=== PATIENT | male | born 1955 | race Hispanic/Latino ===

== ENCOUNTER 2016-06-07 08:34 | Inpatient (IN) | payer MEDICAID ==
[2016-06-07 08:34] VITALS: PULSE 99
[2016-06-07 09:11] LABS: ADD MANUAL DIFF? NO
--- NOTE | 2016-06-07 09:12 | ED PDOC ---
Arrival/HPI - General Chief Complaint: Chest Pain Time Seen by Provider: 06/07/16 08:41 Historian: Patient - History of Present Illness Narrative History of Present Illness (Text): 06/07/16 08:54 61 year old male with a past medical history that includes atrial fibrillation, CHF, COPD, TIA, hypertension, and [place] presents to the emergency department with shortness of breath and chest pain for the past two days. Patient states he ran out of his Lasix. Patient also reports dry cough. Denies fever. PMD: Dr. Centeno Time/Duration: < week Symptom Onset: Sudden Symptom Course: Unchanged Modifying Factors (Text): None Associated Symptoms (Text): None Past Medical History - Provider Review Nursing Documentation Reviewed: Yes - Infectious Disease Hx of Infectious Diseases: None - Tetanus Immunization Tetanus Immunization: Unknown - Cardiac Hx Cardiac Disorders: Yes Hx Cardiac Arrhythmia: Yes (A-fib) Hx Circulatory Problems: Yes Hx Congestive Heart Failure: Yes Hx Hypertension: Yes Other/Comment: Cardiac arrest - Pulmonary Hx Respiratory Disorders: Yes Hx Chronic Obstructive Pulmonary Disease (COPD): Yes - Neurological Hx Neurological Disorder: Yes Hx Transient Ischemic Attacks (TIA): Yes - HEENT Hx HEENT Disorder: No - Renal Hx Renal Disorder: No - Endocrine/Metabolic Hx Endocrine Disorders: No - Hematological/Oncological Hx Blood Disorders: Yes Hx Hepatitis C: Yes - Integumentary Hx Dermatological Disorder: No - Musculoskeletal/Rheumatological Hx Musculoskeletal Disorders: No Hx Falls: No - Gastrointestinal Hx Gastrointestinal Disorders: Yes Other/Comment: GI bleed, short bowel syndrome - Genitourinary/Gynecological Hx Genitourinary Disorders: No - Psychiatric Hx Psychophysiologic Disorder: Yes Hx Anxiety: Yes Hx Depression: Yes Hx Substance Use: No - Surgical History Other/Comment: Hernia repair, fistula colon resection, tonsillectomy, colostomy with reversal, right kidney removed, - Anesthesia Hx Anesthesia: Yes Hx Anesthesia Reactions: No Hx Malignant Hyperthermia: No Family/Social History - Physician Review Nursing Documentation Reviewed: Yes Family/Social History: Unknown Family HX Smoking Status: Current Some Days Smoker Hx Alcohol Use: No Hx Substance Use: No Allergies/Home Meds Allergies/Adverse Reactions: Allergies fluphenazine enanthate [From Prolixin] Allergy (Verified 06/07/16 12:54) RASH fluphenazine HCl [From Prolixin] Allergy (Verified 06/07/16 12:54) RASH morphine Allergy (Verified 06/07/16 12:54) RASH Penicillins Allergy (Verified 06/07/16 12:54) RASH venom-honey bee [bee venom (honey bee)] Allergy (Verified 06/07/16 12:54) ANAPHYLAXIS Home Medications: Home Meds Medication Instructions Recorded Confirmed Lamotrigine [Lamictal] 200 mg PO DAILY 08/15/15 06/07/16 Spironolactone [Aldactone] 25 mg PO DAILY 08/15/15 06/07/16 Amiodarone [Cordarone] 200 mg PO BID 04/16/16 06/07/16 Dabigatran [Pradaxa] 150 mg PO BID 04/16/16 06/07/16 Metoprolol Succinate XL [Toprol XL] 50 mg PO DAILY 04/16/16 06/07/16 Potassium Chloride [K-Tab ER] 20 meq PO DAILY 04/16/16 06/07/16 Verapamil HCl [Verapamil ER] 1 tab PO DAILY 04/16/16 06/07/16 Furosemide [Lasix] 40 mg PO BID 05/04/16 06/07/16 Oxycodone HCl/Acetaminophen 1 tab PO Q6 PRN 05/04/16 06/07/16 [Oxycodone-Acetaminophen 5-325] Review of Systems - Physician Review All systems were reviewed & negative as marked: Yes - Review of Systems Constitutional: absent: Fevers Respiratory: SOB, Cough (dry) Cardiovascular: Chest Pain. absent: Palpitations Gastrointestinal: absent: Abdominal Pain, Nausea, Vomiting Musculoskeletal: absent: Neck Pain Neurological: absent: Dizziness Physical Exam Vital Signs Reviewed: Yes Vital Signs Temp Pulse Pulse Resp BP Pulse Ox 06/07/16 10:47 74 21 118/87 98 06/07/16 10:05 135/77 06/07/16 08:50 74 06/07/16 08:40 97.9 F 81 22 123/76 98 06/07/16 08:38 97.7 F 72 21 123/76 100 Temperature: Afebrile Blood Pressure: Normal Pulse: Regular Respiratory Rate: Normal Appearance: Positive for: Well-Appearing, Non-Toxic, Comfortable Pain Distress: None Mental Status: Positive for: Alert and Oriented X 3 - Systems Exam Head: Present: Atraumatic, Normocephalic Pupils: Present: PERRL Extroacular Muscles: Present: EOMI Conjunctiva: Present: Normal Mouth: Present: Moist Mucous Membranes Neck: Present: Normal Range of Motion Respiratory/Chest: Present: Good Air Exchange, Rales (at the bases bilaterally) , Other (Diminished breath sounds bilaterally). No: Respiratory Distress, Accessory Muscle Use Cardiovascular: Present: Regular Rate and Rhythm, Normal S1, S2. No: Murmurs Abdomen: Present: Normal Bowel Sounds. No: Tenderness, Distention, Peritoneal Signs Back: Present: Normal Inspection Upper Extremity: Present: Normal Inspection. No: Cyanosis, Edema Lower Extremity: Present: Normal Inspection. No: Edema Neurological: Present: GCS=15, CN II-XII Intact, Speech Normal Skin: Present: Warm, Dry, Normal Color. No: Rashes Psychiatric: Present: Alert, Oriented x 3, Normal Insight, Normal Concentration Medical Decision Making ED Course and Treatment: Impression: 61 year old male, pmhx that includes atrial fibrillation, CHF, COPD , TIA, hypertension, and [place], presents with shortness of breath and chest pain for 2 days. Differential Diagnosis include but are not limited to: CHF exacerbation vs pneumonia Plan: -- EKG, Chest x-ray -- Labs -- Reassess and disposition Prior Visits: Notes and results from previous visits were reviewed. Patient was last seen in the emergency department on 05/04/16 for chest pain and admitted for CHF, pneumonia. EKG: Ordered, reviewed, and independently interpreted the EKG. Rate : 81 BPM Rhythm : Atrial fibrillation Interpretation : No interval changes Progress Notes: 06/07/16 10:16 cxr worsening right sided congestion vs opacity pt afebrile, no leukoctyosis. suspected chf. dr chase accepts - Lab Interpretations Lab Results: 06/07/16 08:56 06/07/16 08:56 Lab Results 06/07/16 08:56: WBC 8.1 D, RBC 4.83, Hgb 13.2 L, Hct 41.5 L, MCV 85.9, MCH 27.3 , MCHC 31.8, RDW 18.7 H, Plt Count 219, MPV 10.5, Gran % 82.9 H, Lymph % (Auto) 10.4 L, [place] % (Auto) 6.5 H, Eos % (Auto) 0.1 L, Baso % (Auto) 0.1, Gran # 6.71 H, Lymph # 0.8 L, [place] # 0.5, Eos # 0.0, Baso # 0.01, PT 15.3 H, INR 1.42 H, APTT 38.2 H, Sodium 139, Potassium 4.2, Chloride 106, Carbon Dioxide 22, Anion Gap 15, BUN 33 H, Creatinine 1.8 H, Est GFR ( Amer) 46, Est GFR (Non-Af Amer) 38, Random Glucose 135 H, Calcium 9.6, Magnesium 2.0, Total Bilirubin 0.6 , AST 37, ALT 36, Alkaline Phosphatase 103, Lactate Dehydrogenase 543, Total Creatine Kinase 115, Troponin I 0.02 D, Total Protein 6.4, Albumin 3.5, Globulin 2.9, Albumin/Globulin Ratio 1.2 06/07/16 08:30: NT-Pro-B Natriuret Pep 9380 H - RAD Interpretation Radiology Orders: 06/07/16 08:52 CHEST PORTABLE [RAD] Stat - EKG Interpretation Interpreted by ED Physician: Yes Type: 12 lead EKG - Medication Orders Current Medication Orders: Acetaminophen (Tylenol 325mg Tab) 650 mg PO Q6 PRN PRN Reason: Pain, Mild (1-3) Albuterol/Ipratropium (Duoneb 3 Mg/0.5 Mg (3 Ml) Ud) 3 ml IH [id number] [facility] Last Admin: 06/07/16 15:58 Dose: 3 ML Amiodarone HCl (Cordarone) 200 mg PO BID [facility] Atorvastatin Calcium (Lipitor) 40 mg PO DAILY [facility] Dabigatran (Pradaxa) 150 mg PO BID [facility] PRN Reason: Protocol Diltiazem HCl (Cardizem Cd) 120 mg PO DAILY [facility] Last Admin: 06/07/16 12:29 Dose: 120 MG MAR Pulse and Blood Pressure Document 06/07/16 12:29 GLI (Rec: 06/07/16 12:31 GLI [facility] [id number]) Pulse Pulse Rate (60-90) 89 Blood Pressure Blood Pressure (100/60-150/90) 116/63 Doxycycline Hyclate (Doryx) 100 mg PO Q12 [facility] PRN Reason: Protocol Furosemide (Lasix) 40 mg IVP Q12 [facility] Home Med (Home Med) 1 unit PO DAILY [facility] Lamotrigine (Lamictal) 200 mg PO DAILY [facility] Last Admin: 06/07/16 12:29 Dose: 200 MG Behavioural Document 06/07/16 12:29 GLI (Rec: 06/07/16 12:29 GLI [facility] [id number]) Maintenance Maintenance Dose Yes Nonmedicinal Nonmedicinal Interventions Redirect Behavior Behavior for Medication: Anxiety Re-Assess: Reassess Psych Meds Document 06/07/16 13:29 GLI (Rec: 06/07/16 16:56 GLI [id number]) Reassess Psych Med Effective Lisinopril (Zestril) 5 mg PO DAILY [facility] Metoprolol Succinate (Toprol Xl) 50 mg PO DAILY [facility] Ondansetron HCl (Zofran Inj) 4 mg IVP Q6 PRN PRN Reason: Nausea/Vomiting Pantoprazole Sodium (Protonix Ec Tab) 40 mg PO DAILY [facility] Potassium Chloride (K-Dur 20 Meq Er Tab) 20 meq PO DAILY [facility] Last Admin: 06/07/16 12:28 Dose: 20 MEQ Spironolactone (Aldactone) 25 mg PO DAILY [facility] Last Admin: 06/07/16 12:32 Dose: 25 MG Tramadol HCl (Ultram) 50 mg PO TID PRN PRN Reason: Pain, moderate (4-7) Last Admin: 06/07/16 12:31 Dose: 50 MG MAR Pain Assessment Document 06/07/16 12:31 GLI (Rec: 06/07/16 12:32 GLI [facility] [id number]) Pain Reassessment Is this a pain reassessment? No Presence of Pain Presence of Pain Yes Pain Scale Used Pain Scale Used Numeric Location Left, Right or Bilateral Bilateral Pain Location Body Site Neck Back Description Description Intermittent Intensity of Pain at present 7 Acceptable Level of Pain 0 Pain Behavior Irritability Facial Grimacing Aggravating Factors Changing Position Alleviating Factors/Management Medication Techniques Alleviating Factors Medication Effects of Pain restless Re-Assess: MAR Pain Assessment Document 06/07/16 13:31 GLI (Rec: 06/07/16 16:58 [facility] [id number]) Pain Reassessment Is this a pain reassessment? Yes Sleep Is patient sleeping during reassessment? Yes Discontinued Medications Furosemide (Lasix) 40 mg IVP STAT STA Stop: 06/07/16 09:51 Last Admin: 06/07/16 10:05 Dose: 40 MG MAR Blood Pressure Document 06/07/16 10:05 OCS (Rec: 06/07/16 10:05 OCS [id number]) Blood Pressure Blood Pressure (100/60-150/90) 135/77 IVP Administration Document 06/07/16 10:05 OCS (Rec: 06/07/16 10:05 [id number] Charges for Administration # of IVP Administrations 1 Non-Formulary Medication (Verapamil Hcl [Verapamil Er]) 1 tab PO DAILY [facility]LEC[facility] - Scribe Statement The provider has reviewed the documentation as recorded by the Duran Armstrong Provider Scribe Attestation: All medical record entries made by the Scribe were at my direction and personally dictated by me. I have reviewed the chart and agree that the record accurately reflects my personal performance of the history, physical exam, medical decision making, and the department course for this patient. I have also personally directed, reviewed, and agree with the discharge instructions and disposition. Disposition/Present on Arrival - Present on Arrival Any Indicators Present on Arrival: No History of DVT/PE: No History of Uncontrolled Diabetes: No Urinary Catheter: No History of Decub. Ulcer: No History Surgical Site Infection Following: None - Disposition Have Diagnosis and Disposition been Completed?: Yes Diagnosis: CHF (congestive heart failure) Disposition: HOSPITALIZED Disposition Time: 10:08 Patient Problems: Current Active Problems Problem Status Diagnosed CHF (congestive heart failure) Chronic Condition: FAIR
[2016-06-07 09:19] LABS: BASO # 0.01 K/mm3 (0.0-2.0); BASO % 0.1 % (0.0-3.0); EOS % 0.1 % (1.5-5.0); GRAN # 6.71 (1.4-6.5); GRAN % 82.9 % (50.0-68.0); HEMATOCRIT 41.5 % (42.0-52.0); LYMPH # 0.8 (1.2-3.4); LYMPH % 10.4 % (22.0-35.0); MEAN CELL VOLUME 85.9 fL (80.0-105.0); MEAN CORPUSCULAR HEMOGLOBIN 27.3 pg (25.0-35.0); MEAN CORPUSCULAR HGB CONC 31.8 g/dl (31.0-37.0); MEAN PLATELET VOLUME 10.5 fl (7.0-11.0); MONO # 0.5 (0.1-0.6); MONO % 6.5 % (1.0-6.0); PLATELET COUNT 219 10^3/uL (120.0-450.0); RED CELL DISTRIBUTION WIDTH 18.7 % (11.5-14.5); WHITE BLOOD COUNT 8.1 10^3/ul (4.5-11.0)
[2016-06-07 09:21] LABS: INR 1.42 (0.93-1.08); PARTIAL THROMBOPLASTIN TIME 38.2 Seconds (23.7-30.8)
[2016-06-07 09:22] LABS: ALB/GLOB RATIO 1.2 (1.1-1.8); BILIRUBIN,TOTAL 0.6 mg/dL (0.2-1.3); CALCIUM 9.6 mg/dL (8.4-10.5); POTASSIUM 4.2 mmol/L (3.6-5.0); TOTAL PROTEIN 6.4 g/dL (5.8-8.3)
[2016-06-07 09:33] LABS: TROPONIN I 0.02 ng/mL
[2016-06-07 10:50] LABS: URINE BILIRUBIN NEGATIVE (NEGATIVE); URINE BLOOD NEGATIVE (NEGATIVE); URINE GLUCOSE (UA) NEGATIVE (NEGATIVE); URINE KETONE NEGATIVE (NEGATIVE); URINE LEUKOCYTE ESTERASE NEGATIVE Leu/uL (NEGATIVE); URINE PROTEIN NEGATIVE mg/dL (<30 mg/dL); URINE UROBILINOGEN 0.2 E.U./dL (<1 E.U./dL)
[2016-06-07 10:51] LABS: URINE APPEARANCE CLEAR (CLEAR); URINE COLOR YELLOW (YELLOW)
[2016-06-07] MEDS ORDERED: VERAPAMIL HCL PO SCH (11:30)
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
[2016-06-07] MEDS: Potassium Chloride 20 mEq ER Tab PO SCH (12:28)
[2016-06-07] MEDS: diltiaZEM 120 mg/24 Hours CD Cap PO SCH (12:29)
--- NOTE | 2016-06-07 13:28 | CON ---
DATE: 06/07/2016 REASON FOR CONSULTATION: Exacerbation of congestive heart failure. HISTORY OF PRESENT ILLNESS: The patient is a 61-year-old male who has history of advanced chronic ob structive lung disease, nonischemic cardiomyopathy, congestive heart failure and chronic atrial fibri llation, ran out of his Lasix and presents because of shortness of breath and cough. The patient den ies any fever or chills. SOCIAL HISTORY: The patient is a smoker. MEDICATIONS: Aldactone 25 mg once a day, Cardizem-CD 120 mg once a day, amiodarone 200 mg twice a da y, K-Dur 20 mEq once a day, Lasix 40 mg intravenous twice a day, Lipitor 40 mg once a day, Pradaxa 15 0 mg twice a day, Protonix 40 mg p.o. once a day, Toprol-XL 50 mg once a day, Ultram 50 mg t.i.d. p.r .n., Zestril at 5 mg once a day, Zofran 4 mg intravenous q. 6 hours p.r.n. PHYSICAL EXAMINATION: GENERAL: The patient is a middle-aged male who does not appear to be in any acute distress. VITAL SIGNS: Blood pressure 116/63, heart rate 89, temperature 97.9, respirations 21. HEENT: Normocephalic. NECK: No JVD. CHEST: Scattered coarse crepitations and rhonchi bilaterally. HEART: S1, S2 regular. ABDOMEN: Soft. EXTREMITIES: No edema. LABORATORY DATA: Hemoglobin and hematocrit 13.1 and 41.5, platelet count and white count are within normal limits. SMA-7 is within normal limits except for BUN and creatinine of 33 and 1.8, respective ly and glucose of 135. ProBNP is 9380. One set of troponin is 0.02. INR is 1.4, PTT 38.2. No EKG is found on the computer database and I will review the EKG from the Emergency Room if found on the c haider. Chest x-ray revealed cardiomegaly and right lower lobe infiltrate, possible right lower lobe e ffusion. ASSESSMENT: 1. Exacerbation of congestive heart failure. 2. Right lower lobe pneumonia. 3. Chronic obstructive lung disease. 4. Chronic atrial fibrillation. RECOMMENDATIONS: Continue IV Lasix 40 mg intravenous twice a day, Zestril at 5 mg once a day, Pradax a at 150 mg twice a day, K-Dur 20 mEq once a day, Cardizem-CD at 120 mg daily. I recommend initiatin g IV Rocephin and IV Zithromax for underlying pneumonia. Lexx Haji MD cc: [id number] TT: 06/07/2016 13:27:53 Confirmation # [id number] Dictation # [id number]
--- NOTE | 2016-06-07 13:47 | RAD ---
HISTORY: sob COMPARISON: No prior. FINDINGS: LUNGS: Bilateral lower lobe infiltrates. PLEURA: No significant pleural effusion identified, no pneumothorax apparent. CARDIOVASCULAR: Normal. OSSEOUS STRUCTURES: No significant abnormalities. VISUALIZED UPPER ABDOMEN: Normal. OTHER FINDINGS: None. IMPRESSION: Bilateral lower lobe infiltrates.
[2016-06-07 15:26] LABS: TROPONIN I 0.01 ng/mL
[2016-06-07] MEDS: Albuterol-Ipratrop 3 mg / 0.5 (3 ml) UD IH SCH ×2 (15:58→20:20)
[2016-06-07 16:39] VITALS: BMI 21.9
[2016-06-07] MEDS: VERAPAMIL 180 MG PO SCH (18:08)
--- NOTE | 2016-06-07 18:41 | CARD ---
APPROVED REPORT EKG Measurement Heart [id number] <Conclusion> Atrial fibrillation with a competing junctional pacemaker Nonspecific T wave abnormality, probably digitalis effect Prolonged QT Abnormal ECG
[2016-06-08] MEDS: Albuterol-Ipratrop 3 mg / 0.5 (3 ml) UD IH SCH ×7 (04:30→23:03)
[2016-06-08 09:03] LABS: HEMATOCRIT 42.3 % (42.0-52.0); MEAN CORPUSCULAR HEMOGLOBIN 27.4 pg (25.0-35.0); MEAN CORPUSCULAR HGB CONC 31.4 g/dl (31.0-37.0); MEAN PLATELET VOLUME 10.2 fl (7.0-11.0); WHITE BLOOD COUNT 7.7 10^3/ul (4.5-11.0)
[2016-06-08 09:14] LABS: ALB/GLOB RATIO 1.2 (1.1-1.8); BILIRUBIN,TOTAL 0.8 mg/dL (0.2-1.3); CALCIUM 9.6 mg/dL (8.4-10.5); MAGNESIUM 1.9 mg/dL (1.7-2.2); PHOSPHOROUS 3.3 mg/dL (2.5-4.5); POTASSIUM 4.4 mmol/L (3.6-5.0); TOTAL PROTEIN 6.9 g/dL (5.8-8.3)
--- NOTE | 2016-06-08 09:26 | RAD ---
HISTORY: SOB COMPARISON: 06/07/2016 TECHNIQUE: Chest PA and lateral FINDINGS: LUNGS: Bibasilar interstitial infiltrates, PLEURA: No significant pleural effusion identified. No pneumothorax apparent. CARDIOVASCULAR: Normal. OSSEOUS STRUCTURES: No significant abnormalities. VISUALIZED UPPER ABDOMEN: Normal. OTHER FINDINGS: None. IMPRESSION: No significant interval change.
[2016-06-08] MEDS: diltiaZEM 120 mg/24 Hours CD Cap PO SCH (11:08)
[2016-06-08] MEDS: Potassium Chloride 20 mEq ER Tab PO SCH (11:12)
[2016-06-08] MEDS: VERAPAMIL 180 MG PO SCH (11:12)
[2016-06-08] MEDS: Metoprolol Succinate 50 mg XL Tab PO SCH (11:14)
[2016-06-08] MEDS: Pantoprazole 40 mg EC Tab PO SCH (11:14)
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
--- NOTE | 2016-06-08 13:52 | PN ---
DATE: 06/08/2016 The patient's shortness of breath and cough has improved. PHYSICAL EXAMINATION: VITAL SIGNS: Blood pressure 120/86, heart rate 56, temperature 97.8, respirations 19. HEENT: Normocephalic. NECK: No JVD. CHEST: Bilateral rhonchi. HEART: S1, S2 irregular. EXTREMITIES: 1+ edema. LABORATORIES: Today's BUN and creatinine are 34 and 2.0, glucose is 110. Hemoglobin and hematocrit 13.3 and 42.3. White count and platelet count are within normal limit. ASSESSMENT: 1. Exacerbation of congestive heart failure. 2. Chronic obstructive lung disease. 3. Pneumonia. 4. Chronic atrial fibrillation. RECOMMENDATIONS: Continue current Cardizem-CD, Aldactone, amiodarone, K-Dur, intravenous Lasix, Prad axa, Toprol-XL and Zestril as well as oral doxycycline. Lexx Haji MD cc: [id number] TT: 06/08/2016 13:51:37 Confirmation # [id number] Dictation # [id number] en
[2016-06-08] MEDS ORDERED: Albuterol-Ipratrop 3 mg / 0.5 (3 ml) UD IH PRN (22:30)
[2016-06-09 02:28] VITALS: RESP 20
[2016-06-09] MEDS: Albuterol-Ipratrop 3 mg / 0.5 (3 ml) UD IH SCH ×3 (03:01→10:59)
[2016-06-09 06:49] VITALS: PULSE 64; TEMP 97.4; O2SAT 96
[2016-06-09 09:22] LABS: ADD MANUAL DIFF? NO
[2016-06-09 09:26] LABS: BASO # 0.01 K/mm3 (0.0-2.0); BASO % 0.1 % (0.0-3.0); EOS # 0.1 (0.0-0.7); EOS % 0.6 % (1.5-5.0); GRAN # 6.45 (1.4-6.5); GRAN % 75.4 % (50.0-68.0); HEMATOCRIT 42.4 % (42.0-52.0); LYMPH # 1.4 (1.2-3.4); LYMPH % 16.3 % (22.0-35.0); MEAN CELL VOLUME 87.4 fL (80.0-105.0); MEAN CORPUSCULAR HEMOGLOBIN 27.8 pg (25.0-35.0); MEAN CORPUSCULAR HGB CONC 31.8 g/dl (31.0-37.0); MEAN PLATELET VOLUME 10.4 fl (7.0-11.0); MONO # 0.7 (0.1-0.6); MONO % 7.6 % (1.0-6.0); PLATELET COUNT 207 10^3/uL (120.0-450.0); WHITE BLOOD COUNT 8.6 10^3/ul (4.5-11.0)
[2016-06-09 09:32] LABS: ALB/GLOB RATIO 1.3 (1.1-1.8); BILIRUBIN,TOTAL 0.5 mg/dL (0.2-1.3); CALCIUM 9.4 mg/dL (8.4-10.5); POTASSIUM 4.9 mmol/L (3.6-5.0); TOTAL PROTEIN 6.3 g/dL (5.8-8.3)
[2016-06-09] MEDS: VERAPAMIL 180 MG PO SCH (11:07)
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
[2016-06-09] MEDS: Potassium Chloride 20 mEq ER Tab PO SCH (11:12)
[2016-06-09] MEDS: Pantoprazole 40 mg EC Tab PO SCH (11:14)
[2016-06-09] MEDS: Metoprolol Succinate 50 mg XL Tab PO SCH (11:14)
[2016-06-09] MEDS: diltiaZEM 120 mg/24 Hours CD Cap PO SCH (11:14)
[2016-06-09 11:22] VITALS: BP 114/82
--- NOTE | 2016-06-09 12:07 | PN ---
DATE: 06/09/2016 The patient's shortness of breath and productive cough have improved. He denies any dizziness. PHYSICAL EXAMINATION: VITAL SIGNS: Blood pressure 114/82, heart rate 64, temperature 97.4, respirations 20. HEENT: Normocephalic. NECK: No JVD. CHEST: Bilateral rhonchi. HEART: S1, S2 regular. EXTREMITIES: No edema. LABORATORIES: Hemoglobin and hematocrit 13.5 and 42.4. Platelet count and white count are within no rmal limits. Today's BUN and creatinine are 37 and 2.3. ASSESSMENT: 1. Exacerbation of congestive heart failure. 2. Chronic obstructive lung disease. 3. Chronic atrial fibrillation. 4. Chronic renal insufficiency. RECOMMENDATIONS: Continue current Cardizem-CD, amiodarone, IV Lasix, Pradaxa, Lipitor and lisinopril . Discontinue Aldactone as well as K-Dur. Lexx Haji MD cc: [id number] TT: 06/09/2016 12:06:57 Confirmation # [id number] Dictation # [id number] en
== END 2016-06-09 13:17 | disposition home or self-care (01) | DRG 544 ==
LOC: ED 08:34 → ERH 10:22 → 2RNO 11:34 → 5RSO 06-08 14:03 → 2RNO 06-08 14:04
PROVIDERS: ADMIT Hospitalist; ATTEND Internal Medicine
PROC: 3E0F7GC Introduction of Other Therapeutic Substance into Respiratory Tract, Via Natural or Artificial Opening (ICD-10-PCS; principal; 2016-06-07)
DX: I13.0 Hypertensive heart and chronic kidney disease with heart failure and stage 1 through stage 4 chronic kidney disease, or unspecified chronic kidney disease (principal); J18.9 Pneumonia, unspecified organism; I42.0 Dilated cardiomyopathy; I50.9 Heart failure, unspecified; J44.0 Chronic obstructive pulmonary disease with (acute) lower respiratory infection; N18.9 Chronic kidney disease, unspecified; I48.2 Chronic atrial fibrillation; F17.210 Nicotine dependence, cigarettes, uncomplicated; M54.9 Dorsalgia, unspecified; G89.29 Other chronic pain; R35.8 Other polyuria; T50.1X5A Adverse effect of loop [high-ceiling] diuretics, initial encounter; F32.9 Major depressive disorder, single episode, unspecified; Z91.14 Patient's other noncompliance with medication regimen; I25.2 Old myocardial infarction; Z86.73 Personal history of transient ischemic attack (TIA), and cerebral infarction without residual deficits; Z82.49 Family history of ischemic heart disease and other diseases of the circulatory system; Z80.3 Family history of malignant neoplasm of breast

== ENCOUNTER 2016-06-10 00:39 | Inpatient (IN) | payer MEDICAID ==
[2016-06-10 00:39] VITALS: PULSE 99
--- NOTE | 2016-06-10 01:01 | ED PDOC ---
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 Patient was admitted to the hospital for chest pain and shortness of breath, and was discharged home yesterday afternoon. Denies any nausea, vomiting, or diarrhea. Denies fever, chills, headache, dizziness, shortness of breath, urinary symptoms , or any other complaints at this time. Time/Duration: 1 hour Symptom Onset: Gradual Symptom Course: Unchanged Severity Level: Mild Activities at Onset: Light Context: Home Past Medical History - Provider Review Nursing Documentation Reviewed: Yes - Infectious Disease Hx of Infectious Diseases: None - Tetanus Immunization Tetanus Immunization: Unknown - Cardiac Hx Cardiac Disorders: Yes Hx Cardiac Arrhythmia: Yes (A-fib) Hx Circulatory Problems: Yes Hx Congestive Heart Failure: Yes Hx Hypertension: Yes Other/Comment: Cardiac arrest - Pulmonary Hx Respiratory Disorders: Yes Hx Chronic Obstructive Pulmonary Disease (COPD): Yes - Neurological Hx Neurological Disorder: Yes Hx Transient Ischemic Attacks (TIA): Yes - HEENT Hx HEENT Disorder: No - Renal Hx Renal Disorder: No - Endocrine/Metabolic Hx Endocrine Disorders: No - Hematological/Oncological Hx Blood Disorders: Yes Hx Hepatitis C: Yes - Integumentary Hx Dermatological Disorder: No - Musculoskeletal/Rheumatological Hx Musculoskeletal Disorders: No Hx Falls: No - Gastrointestinal Hx Gastrointestinal Disorders: Yes Other/Comment: GI bleed, short bowel syndrome - Genitourinary/Gynecological Hx Genitourinary Disorders: No - Psychiatric Hx Psychophysiologic Disorder: Yes Hx Anxiety: Yes Hx Depression: Yes Hx Substance Use: No - Surgical History Other/Comment: Hernia repair, fistula colon resection, tonsillectomy, colostomy with reversal, right kidney removed, - Anesthesia Hx Anesthesia: Yes Hx Anesthesia Reactions: No Hx Malignant Hyperthermia: No Family/Social History - Physician Review Nursing Documentation Reviewed: Yes Family/Social History: No Known Family HX Smoking Status: Current Some Days Smoker Hx Alcohol Use: No Hx Substance Use: No Allergies/Home Meds Allergies/Adverse Reactions: Allergies fluphenazine enanthate [From Prolixin] Allergy (Verified 06/07/16 12:54) RASH fluphenazine HCl [From Prolixin] Allergy (Verified 06/07/16 12:54) RASH morphine Allergy (Verified 06/07/16 12:54) RASH Penicillins Allergy (Verified 06/07/16 12:54) RASH venom-honey bee [bee venom (honey bee)] Allergy (Verified 06/07/16 12:54) ANAPHYLAXIS Home Medications: Home Meds Medication Instructions Recorded Confirmed Oxycodone HCl/Acetaminophen 1 tab PO Q6 PRN 05/04/16 06/10/16 [Oxycodone-Acetaminophen 5-325] Review of Systems - Physician Review All systems were reviewed & negative as marked: Yes - Review of Systems Constitutional: Normal. absent: Fatigue, Fevers Respiratory: absent: SOB, Cough Cardiovascular: Chest Pain. absent: Palpitations Gastrointestinal: Abdominal Pain (lower ). absent: Diarrhea, Nausea, Vomiting Musculoskeletal: Other (shoulder pain ) Skin: Normal Neurological: Normal. absent: Headache, Dizziness Psychiatric: Normal Physical Exam Vital Signs Reviewed: Yes Vital Signs Temp Pulse Resp BP Pulse Ox 06/10/16 10:20 63 18 116/45 L 96 06/10/16 08:06 97.6 F 63 18 122/83 95 06/10/16 05:40 60 16 111/71 95 06/10/16 04:45 57 L 18 116/65 96 06/10/16 03:00 61 16 117/62 94 L 06/10/16 01:19 97.9 F 67 16 109/66 96 Temperature: Afebrile Blood Pressure: Normal Pulse: Regular Respiratory Rate: Normal Appearance: Positive for: Well-Appearing, Non-Toxic, Comfortable Pain Distress: None Mental Status: Positive for: Alert and Oriented X 3 - Systems Exam Head: Present: Atraumatic, Normocephalic Pupils: Present: PERRL Extroacular Muscles: Present: EOMI Conjunctiva: Present: Normal Respiratory/Chest: Present: Clear to Auscultation, Good Air Exchange. No: Respiratory Distress, Accessory Muscle Use Cardiovascular: Present: Regular Rate and Rhythm, Normal S1, S2. No: Murmurs Abdomen: Present: Normal Bowel Sounds. No: Tenderness, Distention, Peritoneal Signs Upper Extremity: Present: Normal Inspection. No: Cyanosis, Edema Lower Extremity: Present: Normal Inspection. No: Edema Neurological: Present: GCS=15, CN II-XII Intact, Speech Normal Skin: Present: Warm, Dry, Normal Color. No: Rashes Psychiatric: Present: Alert, Oriented x 3, Normal Insight, Normal Concentration Medical Decision Making ED Course and Treatment: 06/10/16 01:02 Impression: A 61 year old male who presents to the emergency department complaining of chest pain, and lower abdominal pain for past hour. Plan: -- CT abdomen pelvis -- EKG -- Labs, cardiac enzymes -- Ultram -- Blood Culture -- Urinalysis -- Reassess and disposition Progress Notes: 06/10/16 01:05 EKG reviewed by me: Atrial flutter @ 59 bpm with variable AV block. nonspecific T wave abnormality. 06/10/16 05:02 CT abdomen pelvis results reviewed: IMPRESSION: 1. Bilateral pleural effusions, RIGHT > LEFT. 2. RIGHT lower lobe atelectasis and/or pneumonia. 3. Cirrhosis. 4. Moderate ascites. 5. Probable gallbladder with hyperdense bile/cholelithiasis. Suggest ultrasound. 6. Mild colitis versus underdistention. Clinical correlation is needed. Patient with a lactate of 4.2 and potassium of 6.2. Case discussed with Dr. Acosta who accepts patient for ana under hospitalist service for sepsis. 06/12/16 17:26 06/12/16 17:28 - Lab Interpretations Microbiology Results: Microbiology Results 06/10/16 02:30 Blood-Venous Blood Culture - Preliminary NO GROWTH AFTER 48 HOURS 06/10/16 02:15 Blood-Venous Blood Culture - Preliminary NO GROWTH AFTER 48 HOURS Lab Results: 06/10/16 02:15 06/10/16 02:15 Lab Results 06/10/16 02:15: WBC 8.4, RBC 5.66, Hgb 16.0, Hct 49.7, MCV 87.8, MCH 28.3, MCHC 32.2, RDW 18.8 H, Plt Count 240, MPV 10.9, Gran % 84.9 H, Lymph % (Auto) 8.9 L, Fleming % (Auto) 6.2 H, Eos % (Auto) 0.0 L, Baso % (Auto) 0.0, Gran # 7.11 H, Lymph # 0.8 L, Fleming # 0.5, Eos # 0.0, Baso # 0.00, PT 23.7 H, INR 2.19 H, APTT 45.0 H, pO2 26 L, VBG pH 7.19 L*, VBG pCO2 56.0, VBG HCO3 21.4, VBG Total CO2 23.1, VBG O2 Sat (Calc) 43.3, VBG Base Excess -7.4 L, VBG Potassium 6.2 H*, Glucose 77, Lactate 4.2 H*, FiO2 21.0, Sodium 134.0, Potassium 6.2 H* D, Chloride 101.0, Carbon Dioxide 22, Anion Gap 24 H, BUN 48 H, Creatinine 3.3 H, Est GFR ( Amer) 23, Est GFR (Non-Af Amer) 19, Random Glucose 78, Calcium 10.0, Total Bilirubin 2.0 H, AST 177 H, ALT 125 H, Alkaline Phosphatase 151 H, Lactate Dehydrogenase 1438 H, Total Creatine Kinase 397 H, CK-MB (CK-2) 21.0 H, CK-MB (CK-2) % 5.3 H, Troponin I 0.04 D, Total Protein 8.4 H, Albumin 4.4, Globulin 3.9, Albumin/Globulin Ratio 1.1, Amylase 92, Lipase 91, Venous Blood Potassium 6.2 H* I have reviewed the lab results: Yes - RAD Interpretation Narrative RAD Interpretations (Text): EXAM: CT Abdomen and Pelvis Without Intravenous Contrast FINDINGS: Limitations: Lack of intravenous contrast. Lower thorax: Mild cardiomegaly. [id number] emphysematous changes. Peripheral consolidation with air bronchograms within RIGHT lower lobe. Mild atelectasis/ scarring. Small to moderate RIGHT pleural effusion. Small LEFT pleural effusion. ABDOMEN: Liver: Lobulated contour. Periportal edema. Gallbladder and bile ducts: Ovoid soft tissue density structure within RIGHT upper quadrant, felt to represent gallbladder with hyperdense lumen and small stone. Pancreas: Unremarkable. No ductal dilation. Spleen: No splenomegaly. Adrenals: Mild hypertrophy of adrenal glands. Kidneys and ureters: RIGHT kidney not visualized. No renal calculi. Too small to characterize lesion within LEFT kidney. No hydronephrosis. Stomach and bowel: Postsurgical changes of stomach. Postsurgical changes of small bowel. Focal dilatation at level of anastomosis within RIGHT abdomen. Postsurgical changes of large bowel. Mild mural thickening vs underdistention of distal colon. No associated inflammatory stranding. Few mildly distended loops of small bowel, likely ileus. PELVIS: Bladder: Unremarkable. No stones. Reproductive: Unremarkable as visualized. ABDOMEN and PELVIS: Intraperitoneal space: Moderate free fluid within abdomen. No free air. Bones/joints: Small chondroid lesion within RIGHT proximal femur. Bone islands. No acute fracture. Soft tissues: Mild stranding within subcutaneous tissues. Vasculature: Mild atherosclerotic disease. No abdominal aortic aneurysm. Lymph nodes: No pathologically enlarged lymph nodes. IMPRESSION: 1. Bilateral pleural effusions, RIGHT > LEFT. 2. RIGHT lower lobe atelectasis and/or pneumonia. 3. Cirrhosis. 4. Moderate ascites. 5. Probable gallbladder with hyperdense bile/cholelithiasis. Suggest ultrasound. 6. Mild colitis versus underdistention. Clinical correlation is needed. 7. Incidental/non-acute findings are described above. Radiology Orders: 06/10/16 01:15 ABD & PELVIS W/O PO OR IV CONT [CT] Stat 06/10/16 03:05 CHEST PORTABLE [RAD] Stat Food Order Expediter: Radiologist - EKG Interpretation Interpreted by ED Physician: Yes Type: 12 lead EKG - Medication Orders Current Medication Orders: Albumin Human (Albumin Human 25% (25 Gm/100 Ml)) 25 gm IV Q4 [facility] Last Admin: 06/12/16 16:00 Dose: 25 GM eMAR Start Stop Document 06/12/16 16:00 KAA (Rec: 06/12/16 16:00 KAA [id number]) Intravenous Solution Start Date 06/12/16 Start Time 16:00 End Date 06/12/16 End time 17:00 Total Infusion Time 60 Amiodarone HCl (Cordarone) 200 mg PO BID [facility] Last Admin: 06/10/16 11:15 Dose: Atorvastatin Calcium (Lipitor) 40 mg PO DAILY [facility] Metronidazole (Flagyl) 100 mls @ 100 mls/hr IVPB Q8H [facility] PRN Reason: Protocol Last Admin: 06/12/16 11:02 Dose: 100 MLS/HR eMAR Start Stop Document 06/12/16 11:02 HD (Rec: 06/12/16 11:02 HD [id number]) Intravenous Solution Start Date 06/12/16 Start Time 11:02 Levofloxacin/Dextrose (Levaquin 250mg) 50 mls @ 100 mls/hr IVPB Q48H [facility] Last Admin: 06/12/16 08:15 Dose: 100 MLS/HR eMAR Start Stop Document 06/12/16 08:15 HD (Rec: 06/12/16 08:15 HD [id number]) Intravenous Solution Start Date 06/12/16 Start Time 08:15 Aztreonam 500 mg/ Sodium (Chloride) 100 mls @ 100 mls/hr IVPB Q8 [facility] PRN Reason: Protocol Stop: 06/17/16 08:31 Last Admin: 06/12/16 14:48 Dose: 100 MLS/HR eMAR Start Stop Document 06/12/16 14:48 KAA (Rec: 06/12/16 14:49 KAA [id number]) Intravenous Solution Start Date 06/12/16 Start Time 14:48 End Date 06/12/16 End time 15:48 Total Infusion Time 60 Linezolid (Zyvox 600mg/300ml D5w) 300 mls @ 200 mls/hr IVPB Q12 [facility] PRN Reason: Protocol Stop: 06/18/16 10:01 Last Admin: 06/12/16 09:10 Dose: 200 MLS/HR eMAR Start Stop Document 06/12/16 09:10 HD (Rec: 06/12/16 09:10 HD [id number]) Intravenous Solution Start Date 06/12/16 Start Time 09:10 Morphine Sulfate (Morphine) 2 mg IVP Q4H PRN PRN Reason: Pain, moderate (4-7) Last Admin: 06/12/16 14:21 Dose: 2 MG MAR Pain Assessment Document 06/12/16 14:21 KAA (Rec: 06/12/16 14:22 KAA [id number]) Pain Reassessment Is this a pain reassessment? No Sleep Is patient sleeping during reassessment? No Presence of Pain Presence of Pain Yes Pain Scale Used Pain Scale Used Numeric Description Description Intermittent Aggravating Factors Changing Position Alleviating Factors/Management Medication Techniques Alleviating Factors Medication IVP Administration Document 06/12/16 14:21 KAA (Rec: 06/12/16 14:22 KAA [id number]) Charges for Administration # of IVP Administrations 1 Ondansetron HCl (Zofran Inj) 4 mg IVP Q6H PRN PRN Reason: Nausea/Vomiting Discontinued Medications Albumin Human (Albumin Human 25% (25 Gm/100 Ml)) 25 gm IV ONCE ONE Stop: 06/11/16 10:25 Last Admin: 06/11/16 11:19 Dose: 25 GM eMAR Start Stop Document 06/11/16 11:19 GUNNAR (Rec: 06/11/16 11:19 GUNNAR [id number]) Intravenous Solution Start Date 06/11/16 Start Time 11:19 End Date 06/11/16 End time 12:19 Total Infusion Time 60 Albumin Human (Albumin Human 25% (12.5 Gm/50 Ml)) 25 gm IV Q4 [facility] Last Admin: 06/11/16 15:45 Dose: 25 GM eMAR Start Stop Document 06/11/16 15:45 GUNNAR (Rec: 06/11/16 15:45 GUNNAR [id number]) Intravenous Solution Start Date 06/11/16 Start Time 15:45 End Date 06/11/16 End time 16:45 Total Infusion Time 60 Albuterol Sulfate (Albuterol 0.5% Inhal Cynthia (2.5 Mg/0.5 Ml) Ud) 5 mg IH STAT STA Stop: 06/10/16 03:41 Last Admin: 06/10/16 04:26 Dose: 5 MG Albuterol Sulfate (Albuterol 0.5% Inhal Cynthia (5 Mg/ Ml) 20 Ml) 10 mg IH ONCE ONE Stop: 06/10/16 21:11 Last Admin: 06/10/16 21:43 Dose: 10 mg Albuterol Sulfate (Albuterol 0.042% Inhal Cynthia (1.25mg/3ml) Ud) 1.25 mg IH STAT STA Stop: 06/12/16 11:28 Dextrose (Dextrose 50% Inj) 50 ml IVP STAT STA Stop: 06/10/16 03:41 Last Admin: 06/10/16 04:27 Dose: 50 ML IVP Administration Document 06/10/16 04:27 YP (Rec: 06/10/16 04:27 YP [id number]) Charges for Administration # of IVP Administrations 1 Dextrose (Dextrose 50% Inj) Confirm Administered Dose 50 ml .ROUTE .STK-MED ONE Stop: 06/10/16 21:09 Last Admin: 06/10/16 21:32 Dose: Dextrose (Dextrose 50% Inj) 50 ml IVP ONCE ONE Stop: 06/10/16 21:09 Last Admin: 06/10/16 21:31 Dose: 50 ML IVP Administration Document 06/10/16 21:31 SGG (Rec: 06/10/16 21:31 [id number]) Charges for Administration # of IVP Administrations 1 Dextrose (Dextrose 50% Inj) 50 ml IVP ONCE ONE Stop: 06/10/16 21:39 Last Admin: 06/10/16 22:00 Dose: 50 ML IVP Administration Document 06/10/16 22:00 SG (Rec: 06/10/16 22:00 [id number]) Charges for Administration # of IVP Administrations 1 Diphenhydramine HCl (Benadryl) 25 mg IVP ONCE ONE Stop: 06/10/16 03:28 Last Admin: 06/10/16 03:39 Dose: 25 MG IVP Administration Document 06/10/16 03:39 YP (Rec: 06/10/16 03:39 YP [id number]) Charges for Administration # of IVP Administrations 1 Hydromorphone HCl (Dilaudid) 1 mg IVP STAT STA Stop: 06/10/16 03:28 Last Admin: 06/10/16 03:39 Dose: 1 MG IVP Administration Document 06/10/16 03:39 YP (Rec: 06/10/16 03:39 YP [id number]) Charges for Administration # of IVP Administrations 1 Hydromorphone HCl (Dilaudid) 0.5 mg IVP STAT STA Stop: 06/10/16 15:32 Last Admin: 06/10/16 15:42 Dose: 0.5 MG MAR Pain Assessment Document 06/10/16 15:42 KKA (Rec: 06/10/16 15:43 KKA [id number]) Pain Reassessment Is this a pain reassessment? No Sleep Is patient sleeping during reassessment? No Presence of Pain Presence of Pain Yes Pain Scale Used Pain Scale Used Numeric Location Upper or Lower Lower Pain Location Body Site Abdomen IVP Administration Document 06/10/16 15:42 KKA (Rec: 06/10/16 15:43 KKA [id number]) Charges for Administration # of IVP Administrations 1 Re-Assess: RAUL Pain Assessment Document 06/10/16 16:42 KKA (Rec: 06/10/16 17:45 KKA [id number]) Pain Reassessment Is this a pain reassessment? Yes Sleep Is patient sleeping during reassessment? Yes Metronidazole (Flagyl) 100 mls @ 100 mls/hr IVPB STAT STA PRN Reason: Protocol Stop: 06/10/16 03:45 Last Admin: 06/10/16 03:25 Dose: 100 MLS/HR eMAR Start Stop Document 06/10/16 03:25 YP (Rec: 06/10/16 03:25 YP [id number]) Intravenous Solution Start Date 06/10/16 Start Time 03:25 End Date 06/10/16 End time 04:25 Total Infusion Time 60 Vancomycin HCl (Vancomycin 1gm) 250 mls @ 167 mls/hr IVPB STAT STA PRN Reason: Protocol Stop: 06/10/16 04:23 Last Admin: 06/10/16 04:28 Dose: 167 MLS/HR eMAR Start Stop Document 06/10/16 04:28 YP (Rec: 06/10/16 04:28 YP [id number]) Intravenous Solution Start Date 06/10/16 Start Time 04:28 End Date 06/10/16 End time 05:58 Total Infusion Time 90 Sodium Chloride (Sodium Chloride 0.9%) 1,000 mls @ 150 mls/hr IV .Q6H40M [facility] Last Admin: 06/10/16 04:28 Dose: 150 MLS/HR eMAR Start Stop Document 06/10/16 04:28 YP (Rec: 06/10/16 04:28 YP [id number]) Intravenous Solution Start Date 06/10/16 Start Time 04:28 Sodium Chloride (Sodium Chloride 0.9%) 1,000 mls @ 150 mls/hr IV .Q6H40M [facility] Stop: 06/10/16 23:44 Last Admin: 06/10/16 04:52 Dose: Sodium Chloride (Sodium Chloride 0.9%) 1,000 mls @ 50 mls/hr IV .Q20H [facility] Stop: 06/11/16 00:45 Last Admin: 06/10/16 20:55 Dose: Aztreonam 500 mg/ Sodium (Chloride) 100 mls @ 100 mls/hr IVPB Q8 [facility] PRN Reason: Protocol Stop: 06/10/16 14:59 Last Admin: 06/10/16 20:55 Dose: Sodium Chloride (Sodium Chloride 0.9%) 1,000 mls @ 999 mls/hr IV .Q1H1M STA Stop: 06/10/16 10:38 Last Admin: 06/10/16 20:56 Dose: Sodium Chloride (Sodium Chloride 0.9%) 1,000 mls @ 999 mls/hr IV .Q1H1M STA Stop: 06/10/16 14:41 Last Admin: 06/10/16 13:49 Dose: 999 MLS/HR eMAR Start Stop Document 06/10/16 13:49 KKA (Rec: 06/10/16 13:49 KKA [id number]) Intravenous Solution Start Date 06/10/16 Start Time 13:49 End Date 06/10/16 End time 14:55 Total Infusion Time 66 Sodium Chloride (Sodium Chloride 0.9%) 1,000 mls @ 999 mls/hr IV .Q1H1M STA Stop: 06/10/16 16:18 Last Admin: 06/10/16 15:31 Dose: 999 MLS/HR eMAR Start Stop Document 06/10/16 15:31 KKA (Rec: 06/10/16 15:31 KKA [id number]) Intravenous Solution Start Date 06/10/16 Start Time 15:31 End Date 06/10/16 End time 16:30 Total Infusion Time 59 Sodium Bicarbonate 150 meq/ (Dextrose) 1,150 mls @ 100 mls/hr IV .T30C03A [facility] Last Admin: 06/12/16 08:15 Dose: 100 MLS/HR eMAR Start Stop Document 06/12/16 08:15 HD (Rec: 06/12/16 08:15 HD [id number]) Intravenous Solution Start Date 06/12/16 Start Time 08:15 Sodium Bicarbonate 150 meq/ (Dextrose) 1,150 mls @ 50 mls/hr IV .Q23H [facility] Stop: 06/12/16 07:44 Last Admin: 06/12/16 09:20 Dose: Insulin Human Regular (Humulin R) 10 units IVP STAT STA Stop: 06/10/16 03:42 Last Admin: 06/10/16 04:27 Dose: 10 UNITS IVP Administration Document 06/10/16 04:27 YP (Rec: 06/10/16 04:27 YP [id number]) Charges for Administration # of IVP Administrations 1 Insulin Human Regular (Humulin R) 10 units IV ONCE ONE Stop: 06/10/16 21:11 Last Admin: 06/10/16 21:37 Dose: 10 UNITS eMAR Start Stop Document 06/10/16 21:37 SGG (Rec: 06/10/16 21:37 SGG [id number]) Intravenous Solution Start Date 06/10/16 Start Time 21:37 Morphine Sulfate (Morphine) 2 mg IVP STAT STA Stop: 06/11/16 11:20 Last Admin: 06/11/16 11:44 Dose: 2 MG MAR Pain Assessment Document 06/11/16 11:44 GUNNAR (Rec: 06/11/16 11:45 GUNNAR [id number]) Pain Reassessment Is this a pain reassessment? Yes Sleep Is patient sleeping during reassessment? No Presence of Pain Presence of Pain Yes Pain Scale Used Pain Scale Used Numeric Location Pain Location Body Site Abdomen Description Description Intermittent Intensity of Pain at present 8 Acceptable Level of Pain 0 Site Observation tender to touch Pain Behavior Moaning Crying Guarding Aggravating Factors None Alleviating Factors/Management Medication Techniques Distraction Relaxation Techniques Alleviating Factors Distraction Effects of Pain decrease ADL Effectiveness of Techniques increase ADL Pain not relieved and LIP/MD was Yes notified IVP Administration Document 06/11/16 11:44 GUNNAR (Rec: 06/11/16 11:45 GUNNAR [id number]) Charges for Administration # of IVP Administrations 1 Morphine Sulfate (Morphine) 2 mg IVP STAT STA Stop: 06/11/16 16:26 Last Admin: 06/11/16 16:25 Dose: Not Given Non-Admin Reason: Patient Asleep MAR Pain Assessment Document 06/11/16 16:25 MDU (Rec: 06/11/16 17:00 MDU [id number]) Pain Reassessment Is this a pain reassessment? Yes Sleep Is patient sleeping during reassessment? Yes Pantoprazole Sodium (Protonix Inj) 40 mg IVP Q12 [facility] Last Admin: 06/10/16 21:43 Dose: 40 MG IVP Administration Document 06/10/16 21:43 [facility] (Rec: 06/10/16 21:43 [id number]) Charges for Administration # of IVP Administrations 1 Sodium Polystyrene Sulfonate (Kayexalate Oral Susp) 30 gm PO STAT STA Stop: 06/10/16 03:43 Last Admin: 06/10/16 04:28 Dose: 30 GM Sodium Polystyrene Sulfonate (Kayexalate Oral Susp) 30 gm PO ONCE ONE Stop: 06/10/16 21:11 Last Admin: 06/10/16 21:32 Dose: 30 GM Sodium Polystyrene Sulfonate (Kayexalate Oral Susp) 30 gm PO ONCE ONE Stop: 06/12/16 11:27 Last Admin: 06/12/16 14:49 Dose: 30 GM Tramadol HCl (Ultram) 50 mg PO STAT STA Stop: 06/10/16 01:43 Last Admin: 06/10/16 02:06 Dose: 50 MG - Duran Statement The provider has reviewed the documentation as recorded by the Duran Baker Provider Attestation: All medical record entries made by the Duran were at my direction and personally dictated by me. I have reviewed the chart and agree that the record accurately reflects my personal performance of the history, physical exam, medical decision making, and the department course for this patient. I have also personally directed, reviewed, and agree with the discharge instructions and disposition. Disposition/Present on Arrival - Present on Arrival Any Indicators Present on Arrival: No History of DVT/PE: No History of Uncontrolled Diabetes: No Urinary Catheter: No History Surgical Site Infection Following: None - Disposition Have Diagnosis and Disposition been Completed?: Yes Diagnosis: Sepsis, Abdominal pain Disposition: HOSPITALIZED Disposition Time: 05:00 Condition: FAIR
[2016-06-10 01:07] VITALS: BMI 21.7
[2016-06-10 02:29] LABS: ADD MANUAL DIFF? NO
[2016-06-10 02:38] LABS: VENOUS BLOOD GAS BASE EXCESS -7.4 mmol/L (0.0-2.0); VENOUS BLOOD PH 7.19 (7.32-7.43)
[2016-06-10 02:39] LABS: GRAN # 7.11 (1.4-6.5); GRAN % 84.9 % (50.0-68.0); HEMATOCRIT 49.7 % (42.0-52.0); LYMPH # 0.8 (1.2-3.4); LYMPH % 8.9 % (22.0-35.0); MEAN CELL VOLUME 87.8 fL (80.0-105.0); MEAN CORPUSCULAR HEMOGLOBIN 28.3 pg (25.0-35.0); MEAN CORPUSCULAR HGB CONC 32.2 g/dl (31.0-37.0); MEAN PLATELET VOLUME 10.9 fl (7.0-11.0); MONO # 0.5 (0.1-0.6); MONO % 6.2 % (1.0-6.0); PLATELET COUNT 240 10^3/uL (120.0-450.0); RED CELL DISTRIBUTION WIDTH 18.8 % (11.5-14.5); WHITE BLOOD COUNT 8.4 10^3/ul (4.5-11.0)
[2016-06-10 02:43] LABS: ALB/GLOB RATIO 1.1 (1.1-1.8); TOTAL PROTEIN 8.4 g/dL (5.8-8.3)
[2016-06-10 02:46] LABS: INR 2.19 (0.93-1.08)
[2016-06-10] MEDS ORDERED: Piperacill/Tazo 4.5gm in NS 100 ML IVPB STA (02:46)
[2016-06-10] MEDS ORDERED: metroNIDAZOLE IV 500 mg/100 ml 100 ML IVPB STA (02:46)
[2016-06-10] MEDS ORDERED: Vancomycin 1gm in NS 250ml 250 ML IVPB STA (02:54)
[2016-06-10 02:55] LABS: TROPONIN I 0.04 ng/mL
[2016-06-10] MEDS ORDERED: HYDROmorphone 1 mg/ml ISec IVP STA (03:27)
[2016-06-10] MEDS ORDERED: DiphenhydrAMINE 50 mg/ml Inj IVP ONE (03:27)
[2016-06-10 03:33] LABS: POTASSIUM 6.2 mmol/L (3.6-5.0)
[2016-06-10] MEDS ORDERED: Albuterol 0.5% Inhal Sol (2.5 mg/0.5 ml) UD IH STA (03:40)
[2016-06-10] MEDS ORDERED: Dextrose 50% SYRINGE Inj (50 ml) IVP STA (03:40)
[2016-06-10] MEDS ORDERED: Insulin Regular 1 UNITS/0.01 ML ML IVP STA (03:41)
[2016-06-10] MEDS ORDERED: Sod Polystyrene Sulf 15 gm/60 ml Oral Susp PO STA (03:42)
[2016-06-10] MEDS ORDERED: Sodium Chloride 0.9% 1,000 ML IV SCH ×4 (03:45→09:38)
--- NOTE | 2016-06-10 04:11 | CT ---
EXAM: CT Abdomen and Pelvis Without Intravenous Contrast CLINICAL HISTORY: 61 years old, male; Pain; Abdominal pain; Generalized; Prior surgery; Surgery date: 6+ months; Additional info: Abd pain TECHNIQUE: Axial computed tomography images of the abdomen and pelvis without intravenous contrast. This CT exam was performed using one or more of the following dose reduction techniques: automated exposure control, adjustment of the mA and/or kV according to patient size, and/or use of iterative reconstruction technique. Coronal and sagittal reformatted images were created and reviewed. COMPARISON: CT - ABDOMEN WITH CONTRAST 06/22/2015 9:54:53 AM FINDINGS: Limitations: Lack of intravenous contrast. Lower thorax: Mild cardiomegaly. [id number] emphysematous changes. Peripheral consolidation with air bronchograms within RIGHT lower lobe. Mild atelectasis/scarring. Small to moderate RIGHT pleural effusion. Small LEFT pleural effusion. ABDOMEN: Liver: Lobulated contour. Periportal edema. Gallbladder and bile ducts: Ovoid soft tissue density structure within RIGHT upper quadrant, felt to represent gallbladder with hyperdense lumen and small stone. Pancreas: Unremarkable. No ductal dilation. Spleen: No splenomegaly. Adrenals: Mild hypertrophy of adrenal glands. Kidneys and ureters: RIGHT kidney not visualized. No renal calculi. Too small to characterize lesion within LEFT kidney. No hydronephrosis. Stomach and bowel: Postsurgical changes of stomach. Postsurgical changes of small bowel. Focal dilatation at level of anastomosis within RIGHT abdomen. Postsurgical changes of large bowel. Mild mural thickening vs underdistention of distal colon. No associated inflammatory stranding. Few mildly distended loops of small bowel, likely ileus. PELVIS: Bladder: Unremarkable. No stones. Reproductive: Unremarkable as visualized. ABDOMEN and PELVIS: Intraperitoneal space: Moderate free fluid within abdomen. No free air. Bones/joints: Small chondroid lesion within RIGHT proximal femur. Bone islands. No acute fracture. Soft tissues: Mild stranding within subcutaneous tissues. Vasculature: Mild atherosclerotic disease. No abdominal aortic aneurysm. Lymph nodes: No pathologically enlarged lymph nodes. IMPRESSION: 1. Bilateral pleural effusions, RIGHT > LEFT. 2. RIGHT lower lobe atelectasis and/or pneumonia. 3. Cirrhosis. 4. Moderate ascites. 5. Probable gallbladder with hyperdense bile/cholelithiasis. Suggest ultrasound. 6. Mild colitis versus underdistention. Clinical correlation is needed. 7. Incidental/non-acute findings are described above.
[2016-06-10] MEDS ORDERED: Oxycodone/Acetaminophen 5/325 mg Tab PO PRN (04:46)
--- NOTE | 2016-06-10 05:09 | CP.PCM.HP ---
<Eric Alvarez - Last Filed: 06/10/16 05:05> History of Present Illness - History of Present Illness History of Present Illness: This is a 61 yo male with past medical hx of [place], HTN, dilated cardiomyopathy, a fib, depression, TIA presenting with sob x 1 day. Pt was discharged from hospital yesterday. Pt was recently admitted for chf exacerbation. Pt got home and was fine for a few hrs. Afterwards, he began experiencing sob and chest pain as he walked from living room to bathroom. Chest pain was under left breast , no radiation, never felt this way before. It was 12/16, then at time of evaluation 11/16. Nothing makes it better/worse. Pain is constant. No radiation to pain. Pain came on suddenly. He did not take any medication at home for it. The he called ambulance. Pt also complaining of dry cough x 1 week. PMH: [place], dilated cardiomyopathy, HTN, a fib, depression, TIA PSH: stent, tonsillectomy, hiatal hernia repair Allergies: morphine, penicillin, fluphenazine FH: Breast cancer- mother, father -[place] Social hx: 4-5 cigs/ day since age 15, no drinking, no drugs. Lives by himself in [place]. Does not work. Present on Admission - Present on Admission Any Indicators Present on Admission: No History of DVT/PE: No History of Uncontrolled Diabetes: No Urinary Catheter: No Decubitus Ulcer Present: No Review of Systems - Review of Systems All systems: reviewed and no additional remarkable complaints except Review of Systems: Negative except as stated in HPI. Past Patient History - Infectious Disease Hx of Infectious Diseases: None - Tetanus Immunizations Tetanus Immunization: Unknown - Past Medical History & Family History Past Medical History?: Yes Pertinent Family History: Breast cancer and [place] in family - Past Social History Smoking Status: Light Smoker < 10 Cigarettes Daily Chewing Tobacco Use: No Cigar Use: No Alcohol: None Drugs: Denies Home Situation {Lives}: Alone Domestic Violence: Negative - CARDIAC Hx Cardiac Disorders: Yes Hx Cardia Arrhythmia: Yes (A-fib) Hx Circulatory Problems: Yes Hx Congestive Heart Failure: Yes Hx Hypertension: Yes Other/Comment: Cardiac arrest - PULMONARY Hx Respiratory Disorders: Yes Hx Chronic Obstructive Pulmonary Disease (COPD): Yes - NEUROLOGICAL Hx Neurological Disorder: Yes Hx Transient Ischemic Attacks (TIA): Yes - HEENT Hx HEENT Problems: No - RENAL Hx Chronic Kidney Disease: No - ENDOCRINE/METABOLIC Hx Endocrine Disorders: No - HEMATOLOGICAL/ONCOLOGICAL Hx Blood Disorders: Yes Hx Hepatitis C: Yes - INTEGUMENTARY Hx Dermatological Problems: No - MUSCULOSKELETAL/RHEUMATOLOGICAL Hx Musculoskeletal Disorders: No Hx Falls: No - GASTROINTESTINAL Hx Gastrointestinal Disorders: Yes Other/Comment: GI bleed, short bowel syndrome - GENITOURINARY/GYNECOLOGICAL Hx Genitourinary Disorders: No - PSYCHIATRIC Hx Psychophysiologic Disorder: Yes Hx Anxiety: Yes Hx Depression: Yes Hx Substance Use: No - SURGICAL HISTORY Other/Comment: Hernia repair, fistula colon resection, tonsillectomy, colostomy with reversal, right kidney removed, - ANESTHESIA Hx Anesthesia: Yes Hx Anesthesia Reactions: No Hx Malignant Hyperthermia: No Meds Allergies/Adverse Reactions: Allergies Allergy/AdvReac Type Severity Reaction Status Date / Time fluphenazine enanthate Allergy RASH Verified 06/07/16 12:54 [From Prolixin] fluphenazine HCl Allergy RASH Verified 06/07/16 12:54 [From Prolixin] morphine Allergy RASH Verified 06/07/16 12:54 Penicillins Allergy RASH Verified 06/07/16 12:54 venom-honey bee Allergy ANAPHYLAXIS Verified 06/07/16 12:54 [bee venom (honey bee)] Physical Exam - Constitutional Appears: Non-toxic, No Acute Distress, Chronically Ill - Head Exam Head Exam: ATRAUMATIC, NORMAL INSPECTION, NORMOCEPHALIC - Eye Exam Eye Exam: EOMI - ENT Exam ENT Exam: Mucous Membranes Moist - Neck Exam Neck exam: Positive for: Normal Inspection - Respiratory Exam Respiratory Exam: Clear to Auscultation Bilateral, NORMAL BREATHING PATTERN - Cardiovascular Exam Cardiovascular Exam: Irregular Rhythm, +S1, +S2 - GI/Abdominal Exam GI & Abdominal Exam: Distended, Tenderness Additional comments: Tenderness LLQ and RLQ - Extremities Exam Extremities exam: Positive for: normal inspection - Back Exam Back exam: NORMAL INSPECTION - Neurological Exam Neurological exam: Alert, Altered - Psychiatric Exam Psychiatric exam: Flat Affect - Skin Skin Exam: Dry, Intact, Normal Color, Warm Results - Vital Signs Recent Vital Signs: Last Vital Signs Temp 97.9 F 06/10/16 01:19 Pulse 57 L 06/10/16 04:45 Resp 18 06/10/16 04:45 BP 116/65 06/10/16 04:45 Pulse Ox 96 06/10/16 04:45 - Labs Result Diagrams: 06/10/16 02:15 06/10/16 02:15 Labs: Laboratory Results - last 24 hr 06/10/16 02:15 WBC 8.4 RBC 5.66 Hgb 16.0 Hct 49.7 MCV 87.8 MCH 28.3 MCHC 32.2 RDW 18.8 H Plt Count 240 MPV 10.9 Gran % 84.9 H Lymph % (Auto) 8.9 L [place] % (Auto) 6.2 H Eos % (Auto) 0.0 L Baso % (Auto) 0.0 Gran # 7.11 H Lymph # 0.8 L [place] # 0.5 Eos # 0.0 Baso # 0.00 PT 23.7 H INR 2.19 H APTT 45.0 H pO2 26 L VBG pH 7.19 L* VBG pCO2 56.0 VBG HCO3 21.4 VBG Total CO2 23.1 VBG O2 Sat (Calc) 43.3 VBG Base Excess -7.4 L VBG Potassium 6.2 H* Sodium 137 Chloride 97 L Glucose 77 Lactate 4.2 H* FiO2 21.0 Potassium 6.2 H* D Carbon Dioxide 22 Anion Gap 24 H BUN 48 H Creatinine 3.3 H Est GFR ( Amer) 23 Est GFR (Non-Af Amer) 19 Random Glucose 78 Calcium 10.0 Total Bilirubin 2.0 H AST 177 H ALT 125 H Alkaline Phosphatase 151 H Lactate Dehydrogenase 1438 H Total Creatine Kinase 397 H CK-MB (CK-2) 21.0 H CK-MB (CK-2) % 5.3 H Troponin I 0.04 D Total Protein 8.4 H Albumin 4.4 Globulin 3.9 Albumin/Globulin Ratio 1.1 Amylase 92 Lipase 91 Venous Blood Potassium 6.2 H* Assessment & Plan - Assessment and Plan (Free Text) Assessment: This is a 61 yo male with past medical hx of HTN, dilated cardiomyopathy, a fib , depression, TIA presenting with sob and chest pain 1. Chest pain/sob -rule out ACS -CXR shows B/L pleural effusions and cardiomegaly -EKG shows a fib -cardiology consult. Dr. Taylor. recs appreciated. -we will trend cardiac enzymes -NS 150 cc/hr; stop after 3 bags -liquid diet -blood and urine cultures -pt has lactic acidosis -recheck lactic acid level after given 2 L of fluid -if map < 65, can give 500 cc bolus -place in telemetry -ct abdomen shows some ascites along with focal colitis 2. Hx of CHF -strict I/O -daily weight -hold home lasix 3. hx of A fib -resume home pradaxa -resume amiodarone 4. Colitis -IV flagyl 500 q 8 -blood/urine culture 5. Acute kidney injury -nephrology consult. recs appreciated -NS 150 cc/hr -avoid overhydration, previous ef 20-25 percent 6. hx of htn -hold home htn meds for now 7. GI/DVT ppx -protonix bid -continue pradaxa -oxycodone for pain discussed with Dr. Acosta <Mahesh Acosta Q - Last Filed: 06/10/16 08:36> Results - Vital Signs Recent Vital Signs: Last Vital Signs Temp 97.6 F 06/10/16 08:06 Pulse 63 06/10/16 08:06 Resp 18 06/10/16 08:06 BP 122/83 06/10/16 08:06 Pulse Ox 95 06/10/16 08:06 - Labs Result Diagrams: 06/10/16 07:00 06/10/16 07:00 Labs: Laboratory Results - last 24 hr 06/10/16 06/10/16 07:00 07:45 WBC 13.5 H D RBC 5.00 Hgb 13.8 L Hct 43.8 MCV 87.6 MCH 27.6 MCHC 31.5 RDW 18.8 H Plt Count 200 MPV 10.9 Gran % 83.0 H Lymph % (Auto) 8.4 L [place] % (Auto) 8.4 H Eos % (Auto) 0.1 L Baso % (Auto) 0.1 Gran # 11.23 H Lymph # 1.1 L [place] # 1.1 H Eos # 0.0 Baso # 0.01 pO2 49 VBG pH 7.22 L VBG pCO2 52.0 VBG HCO3 21.3 VBG Total CO2 22.9 VBG O2 Sat (Calc) 81.5 H VBG Base Excess -6.8 L VBG Potassium 4.8 Glucose 60 L Lactate 2.5 H FiO2 21.0 Sodium 140 135.0 Potassium 5.1 H Chloride 104 106.0 Carbon Dioxide 20 L Anion Gap 21 H BUN 50 H Creatinine 3.2 H Est GFR ( Amer) 24 Est GFR (Non-Af Amer) 20 Random Glucose 66 L Calcium 8.9 Total Bilirubin 1.4 H AST 525 H ALT 362 H Alkaline Phosphatase 105 Total Protein 6.1 Albumin 3.3 Globulin 2.8 Albumin/Globulin Ratio 1.2 Venous Blood Potassium 4.8 Attending/Attestation - Attestation I have personally seen and examined this patient.: Yes I have fully participated in the care of the patient.: Yes I have reviewed all pertinent clinical information: Yes Notes (Text): 06/10/16 08:33 I agree with the above note by the resident with the following additions/ exceptions: 61 y/o male with PMHx as above returns to the ED one day after discharge with the complaint of shortness of breath along with vague complaints of pain located under his breast as well as in his lower left and right quadrants. CT of the Abdomen shows colitis; given an elevated lactic acid level it appears he requires Iv Hydration as well as IV Abx for his Colitis. He will also be evaluated for his worsening renal function which was present prior to his discharge on his most recent admission. Patient also has a living will that states he is a DNR/DNI; he states he would like us to continue to follow his living will and keep him as a DNR/DNI, which we will do.
[2016-06-10 07:08] LABS: ADD MANUAL DIFF? NO
[2016-06-10 07:21] LABS: BASO # 0.01 K/mm3 (0.0-2.0); BASO % 0.1 % (0.0-3.0); EOS % 0.1 % (1.5-5.0); GRAN # 11.23 (1.4-6.5); HEMATOCRIT 43.8 % (42.0-52.0); LYMPH # 1.1 (1.2-3.4); LYMPH % 8.4 % (22.0-35.0); MEAN CELL VOLUME 87.6 fL (80.0-105.0); MEAN CORPUSCULAR HEMOGLOBIN 27.6 pg (25.0-35.0); MEAN CORPUSCULAR HGB CONC 31.5 g/dl (31.0-37.0); MEAN PLATELET VOLUME 10.9 fl (7.0-11.0); MONO # 1.1 (0.1-0.6); MONO % 8.4 % (1.0-6.0); PLATELET COUNT 200 10^3/uL (120.0-450.0); RED CELL DISTRIBUTION WIDTH 18.8 % (11.5-14.5); WHITE BLOOD COUNT 13.5 10^3/ul (4.5-11.0)
[2016-06-10 07:25] LABS: ALB/GLOB RATIO 1.2 (1.1-1.8); BILIRUBIN,TOTAL 1.4 mg/dL (0.2-1.3); CALCIUM 8.9 mg/dL (8.4-10.5); POTASSIUM 5.1 mmol/L (3.6-5.0); TOTAL PROTEIN 6.1 g/dL (5.8-8.3)
[2016-06-10 07:59] LABS: VENOUS BLOOD GAS BASE EXCESS -6.8 mmol/L (0.0-2.0); VENOUS BLOOD PH 7.22 (7.32-7.43)
--- NOTE | 2016-06-10 08:26 | RAD ---
HISTORY: cp COMPARISON: 06/08/2016 FINDINGS: LUNGS: There is a persistent infiltrate at the right lung base. There is blunting of the costophrenic angles PLEURA: Blunting of the costophrenic angle CARDIOVASCULAR: Normal. OSSEOUS STRUCTURES: No significant abnormalities. VISUALIZED UPPER ABDOMEN: Normal. OTHER FINDINGS: None. IMPRESSION: Persistent infiltrate at the right lung base
[2016-06-10 09:31] LABS: ALB/GLOB RATIO 1.1 (1.1-1.8); BILIRUBIN,TOTAL 1.2 mg/dL (0.2-1.3); CALCIUM 8.7 mg/dL (8.4-10.5); MAGNESIUM 2.1 mg/dL (1.7-2.2); PHOSPHOROUS 5.7 mg/dL (2.5-4.5); POTASSIUM 5.1 mmol/L (3.6-5.0); TOTAL PROTEIN 5.8 g/dL (5.8-8.3)
[2016-06-10] MEDS ORDERED: Sodium Chloride 0.9% 1,000 ML IV STA ×3 (09:38→15:18)
[2016-06-10 09:42] LABS: TROPONIN I 0.05 ng/mL
--- NOTE | 2016-06-10 10:49 | CON ---
DATE: 06/10/2016 REFERRING PHYSICIAN: Dr. Kent. REASON FOR EVALUATION: Acute kidney injury versus chronic kidney disease. CHIEF COMPLAINT AND HISTORY OF PRESENT ILLNESS: This is a 61-year-old male who is coming in to the [facility] complaining of shortness of breath. He has a past medical history of dilated cardiomyopathy, atrial fibrillation, hypertension, [place]. The patient also had a history of kidney cancer that he stat es required surgery in 1999 and had a nephrectomy in the right side. The patient was recently discha rged from the hospital and says he was at home and started having shortness of breath, so he came in for further evaluation. He also was complaining of chest pain. He said he was walking from the [facility] room to the bathroom. His pain was 9/10 in the left side of the chest. The patient called the am gerard and he came in for further evaluation. He does complain of a cough over the past week. The patient says his chest pain has improved. He has no complaints of any fevers or chills, no nausea, n o abdominal pain, no back pain; no dysuria, frequency or nocturia. He denies NSAID use. The patient 's creatinine was 3.2 on this admission to the ER. His previous creatinines were between 1.8 and 2.3 . The patient had blood work done in 04/2016 and creatinine ranged from 1.6 to 1.9. REVIEW OF SYSTEMS: All of the review of symptoms are within normal limits except as mentioned. ALLERGIES: FLUPHENAZINE, MORPHINE, PENICILLIN. PRIMARY DOCTOR: Dr. Quang Self in [place]. PAST MEDICAL HISTORY: 1. Short bowel syndrome. 2. Chronic obstructive pulmonary disease. 3. TIA. 4. Depression. 5. Atrial fibrillation. 6. Nonischemic cardiomyopathy. 7. Hypertension. PAST SURGICAL HISTORY: Tonsillectomy, hiatal hernia repair, right nephrectomy. FAMILY HISTORY: Mother of breast cancer. Father of [place]. SOCIAL HISTORY: He smokes occasionally. Denies alcohol. The patient has been smoking since the age of 15. He says he smokes 4-5 cigarettes a day. He lives in [place]. He is unemployed. PHYSICAL EXAMINATION: VITAL SIGNS: Temperature is 97.9, pulse of 60, blood pressure 111/71, respirations 16, O2 saturation 95%. GENERAL: Patient lying in bed, flat, and in no apparent distress. HEAD AND NECK EXAM: Atraumatic, normocephalic. Conjunctivae are pink. Throat clear and mouth with moist mucosa. Oropharynx benign. EYES: Extraocular movements are intact. PERRLA. NECK: Supple. No JVD, thyromegaly, or adenopathy. No bruits. HEART: S1 and S2 regular rate and rhythm. No murmurs, rubs, or gallops. LUNGS: Clear to auscultation bilaterally. No wheezing rales or rhonchi appreciated. No retraction s on exam. ABDOMEN: Soft, nontender, nondistended. Bowel sounds are positive in all quadrants. No rebound. No hepatosplenomegaly. EXTREMITIES: No cyanosis, clubbing, or edema. NEURO: No facial asymmetry, tongue is midline, no uvula deviation. Power is 5/5 in upper extremity and 5/5 in lower extremity. Sensation is normal in upper extremity and lower extremity. PSYCH: Awake, alert, oriented x3. No anxiety or depression symptoms. Good insight. Normal affec t. : No CVA tenderness VASCULAR: 2+ pulses in carotid and pedal pulses. SKIN: No erythema or abnormal nodules noted. SPINE: Normal curvature. LYMPHADENOPATHY: No anterior cervical or posterior cervical adenopathy. No inguinal adenopathy. LABORATORY DATA: The patient's white count is 13.5, hemoglobin is 13.8 with a platelet count of 200. INR is 2.1. ABG shows a pH of 7.19 with a pCO2 of 56, bicarbonate is 22 with an anion gap of 24. The patient has a lactate of 4.2. Chemistry shows potassium is 6.2, repeat is 5.1; creatinine is 3.3 . AST is 177, ALT is 125, albumin is 4.4. Chest x-ray is pleural effusion, right greater than left. On chest x-ray, no infiltrates. Chest x-r ay shows atrial flutter with a rate of 59, nonspecific ST changes. CT of the abdomen and pelvis was reviewed by me, and there are bilateral pleural effusions, right gre ater than left; cirrhosis, moderate ascites, mild colitis versus under distention. ASSESSMENT: 1. Hyperkalemia. 2. Acute kidney injury with chronic kidney disease, stage III. 3. Right nephrectomy, status post kidney cancer in 1999. 4. A soft tissue density in the right upper quadrant, possible gallbladder. 5. Bilateral pleural effusion, right greater than left. 6. Ascites. 7. Transaminitis. 8. Coagulopathy. 9. Dilated nonischemic cardiomyopathy with an ejection fraction of 20%. 10. Atrial fibrillation, on Pradaxa. 11. Hypertension. 12. Dyslipidemia. 13. Moderate pulmonary hypertension. 14. Moderate tricuspid regurgitation. 15. Moderate mitral regurgitation. PLAN: The patient was initially complaining of shortness of breath and chest pain. He states that h as improved. He has hyperkalemia that has also improved. He was given Kayexalate in the ER yesterda y. The patient's creatinine has increased significantly from his previous creatinine when he was dis charged 2 days ago. I did review the patient's CAT scan. He only has 1 kidney on the left because tito jackson had surgery on his right kidney in 1999 because of kidney cancer he states. The patient does have dilation of his stomach it seems. The patient has been placed on IV fluids at 150 an hour. The marialuisa ent has bilateral pleural effusion and ascites. I will decrease the patient's rate to 50 an hour. I have ordered urine lytes to evaluate his volume status. It is difficult to assess his volume. He d oes not have any significant lower extremity edema, but does have ascites and bilateral pleural effus ion. We will check a urine for a fractional excretion of urea. If it is less than 35%, it may indic ate that is volume depleted. He has not been on diuretic therapy. The patient is on amiodarone. He has transaminitis and so it may need to be discontinued as this can cause elevated LFTs. He also rubio s an elevated bilirubin and elevated alkaline phosphatase. I will discontinue the patient's Lipitor as well for now. Would recommend evaluation by GI because of the patient's elevated LFTs. He also i s coagulopathic and he is on Pradaxa. His INR should not be elevated unless he has underlying liver pathology. The patient's Pradaxa has been placed on hold as well. He is on Percocet for pain. The patient is also going to be sensitive to NSAIDs and other nephrotoxic agents, so I will try to minimi ze this. He denies any liver issues. I am not concerned about abdominal compartment syndrome darrellcory e he does not have any significant volume in his abdomen. His blood pressure has been maintained thr oughout his ER stay. I suspect that his elevated creatinine is multifactorial but mostly related to his volume status. He has advanced cardiomyopathy and may also be volume overloaded. He will need a cardiac evaluation. The patient's last echocardiogram was done in 08/2015 that indicated an ejectio n fraction of 20-25%. He had moderate to severe pulmonary hypertension and a moderate tricuspid regu rgitation. Will continue to follow closely. Abbe Robertson MD cc: [id number] TT: 06/10/2016 10:48:26 Confirmation # [id number] Dictation # [id number] mn
[2016-06-10 12:14] LABS: PH,URINE 5.5 (4.7-8.0); URINE BILIRUBIN NEGATIVE (NEGATIVE); URINE BLOOD TRACE-INTACT (NEGATIVE); URINE GLUCOSE (UA) NEGATIVE (NEGATIVE); URINE KETONE NEGATIVE (NEGATIVE); URINE LEUKOCYTE ESTERASE NEGATIVE Leu/uL (NEGATIVE); URINE PROTEIN 100 mg/dL (<30 mg/dL); URINE UROBILINOGEN 0.2 E.U./dL (<1 E.U./dL)
[2016-06-10 12:17] LABS: URINE APPEARANCE SL CLOUDY (CLEAR); URINE COLOR YELLOW (YELLOW)
--- NOTE | 2016-06-10 12:42 | US ---
HISTORY: elevated LFT COMPARISON: None. TECHNIQUE: Sonographic evaluation of the abdomen. FINDINGS: LIVER: Measures 11.9 cm. Normal echogenicity of the liver parenchyma. No mass. No intrahepatic biliary ductal dilatation. Lobulated contour, uncertain significance. Atypical appearance for hepatic cirrhosis. GALLBLADDER: Cholelithiasis. Thickened gallbladder wall up to 5 mm. Edema noted within gallbladder wall. Negative sonographic Mac's sign. Findings are equivocal for cholecystitis. COMMON BILE DUCT: Measures 3 mm. No stones. No dilatation. PANCREAS: Unremarkable as visualized. No mass. No ductal dilatation. RIGHT KIDNEY: Status post right nephrectomy LEFT KIDNEY: Measures 13.8cm. Normal echogenicity. No calculus or hydronephrosis. Two lower pole simple cortical cysts, 7 mm and 9 mm in diameter, respectively. SPLEEN: Normal in size and contour. No mass. AORTA: No aneurysmal dilatation. IVC: Unremarkable. OTHER FINDINGS: Ascites. Bilateral pleural effusion noted. IMPRESSION: Ascites and bilateral pleural effusion. No evidence of intra or extrahepatic biliary dilatation. Cholelithiasis with thickened, edematous gallbladder wall, nonspecific. In the absence of a positive sonographic Mac sign, these findings are equivocal for cholecystitis. If clinical symptoms persist consider further evaluation with a radionuclide hepatobiliary scan. Lobulation of hepatic contour without the fine nodular pattern typical of hepatic cirrhosis. Uncertain significance.
[2016-06-10 12:47] LABS: URINE BACTERIA MANY (NEG); URINE EPITHELIAL CELLS 0 - 2 /hpf (0-5)
[2016-06-10 12:49] LABS: URINE AMORPHOUS SEDIMENT MODERATE
[2016-06-10] MEDS: metroNIDAZOLE IV 500 mg/100 ml 100 ML IVPB SCH ×2 (13:19→18:41)
--- NOTE | 2016-06-10 14:33 | CP.PCM.PN ---
<Mark Ramirez - Last Filed: 06/10/16 15:33> Subjective - Date & Time of Evaluation Date of Evaluation: 06/10/16 Time of Evaluation: 15:30 - Subjective Subjective: Patient seen and examined at bedside. Patient was found to be hypotension with BP of 57/40. Patient was lethargic but verbally arousable. Patient complains of lethargy and dizziness. Patient was given 1 liter NS bolus and BP improved slightly to 78/46. Patient remained lethargic. ICU evaluation was requested. Stat CXR and another 1 Liter NS bolus were ordered. Patient complains of lower abdominal pain and requested pain medications. Denies headache, fever, chills, shortness of breath, nausea or vomiting. Objective - Vital Signs/Intake and Output Vital Signs (last 24 hours): Temp Pulse Resp BP Pulse Ox 97.6 F 63 18 116/45 L 96 06/10/16 13:14 06/10/16 13:14 06/10/16 13:14 06/10/16 13:14 06/10/16 10:20 Intake and Output: 06/10/16 06/10/16 06:59 18:59 Output Total 50 Balance -50 - Medications Medications: Current Medications Amiodarone HCl (Cordarone) 200 mg PO BID [facility] Last Admin: 06/10/16 11:15 Dose: Not Given Atorvastatin Calcium (Lipitor) 40 mg PO DAILY [facility] Metronidazole (Flagyl) 100 mls @ 100 mls/hr IVPB Q8H [facility] PRN Reason: Protocol Last Admin: 06/10/16 13:19 Dose: 100 mls/hr Aztreonam 500 mg/ Sodium (Chloride) 100 mls @ 100 mls/hr IVPB Q8 [facility] PRN Reason: Protocol Stop: 06/10/16 14:59 Last Admin: 06/10/16 10:08 Dose: 100 mls/hr Levofloxacin/Dextrose (Levaquin 250mg) 50 mls @ 100 mls/hr IVPB Q48H [facility] Last Admin: 06/10/16 09:04 Dose: 100 mls/hr Sodium Chloride (Sodium Chloride 0.9%) 1,000 mls @ 999 mls/hr IV .Q1H1M STA Stop: 06/10/16 14:41 Last Admin: 06/10/16 13:49 Dose: 999 mls/hr Pantoprazole Sodium (Protonix Inj) 40 mg IVP Q12 [facility] Last Admin: 06/10/16 10:09 Dose: 40 mg - Labs Labs: 06/10/16 07:00 06/10/16 09:00 PT 23.7 Seconds (9.9-11.8) H 06/10/16 02:15 INR 2.19 (0.93-1.08) H 06/10/16 02:15 APTT 45.0 Seconds (23.7-30.8) H 06/10/16 02:15 - Constitutional Appears: No Acute Distress, Chronically Ill - Head Exam Head Exam: ATRAUMATIC, NORMOCEPHALIC - Eye Exam Eye Exam: Normal appearance - ENT Exam ENT Exam: Mucous Membranes Moist - Neck Exam Neck Exam: Normal Inspection - Respiratory Exam Respiratory Exam: Decreased Breath Sounds, NORMAL BREATHING PATTERN. absent: Respiratory Distress - Cardiovascular Exam Cardiovascular Exam: Irregular Rhythm, RRR, +S1, +S2 - GI/Abdominal Exam GI & Abdominal Exam: Soft, Normal Bowel Sounds. absent: Tenderness Additional comments: Surgical scar from abdominal hernia - Extremities Exam Extremities Exam: Normal Inspection - Back Exam Back Exam: NORMAL INSPECTION - Neurological Exam Neurological Exam: Alert, Awake, Oriented x3 - Psychiatric Exam Psychiatric exam: Flat Affect Additional comments: lethargic - Skin Skin Exam: Dry, Intact, Warm Assessment and Plan - Assessment and Plan (Free Text) Assessment: 61 year old male with past medical history of HTN, dilated cardiomyopathy, a fib , depression, TIA presenting with sob and chest pain. Patient was found to to hypotensive in telemetry Sepsis -Likely secondary to pneumonia, colitis -leukocytosis at 13.5 -Remains Hypotensive after 1 liter of NS bolus -CXR show right basilar infiltrate -Repeat CXR pending -Patient has lactic acidosis -Elevated LFT, creatinine -bradshaw culture -ICU evaluation requested -Follow ID recommendations -Follow up procalcitonin -Continue aztreonam, levofloxacin, flagyl Chest pain/sob -rule out ACS -CXR shows B/L pleural effusions and cardiomegaly -EKG shows a fib -cardiology consult. Dr. Taylor. recs appreciated. -Troponin 0.04, 0.05 indeterminate -liquid diet -if map < 65, can give 500 cc bolus -place in telemetry -ct abdomen shows some ascites along with focal colitis Acute kidney injury -Hold Amiodarone and lipitor -nephrology consult. recs appreciated -avoid overhydration, previous ef 20-25 percent Colitis -IV flagyl 500 q 8 -blood/urine culture -Follow GI recommendations -Follow up hepatitis panel Hx of CHF -strict I/O -daily weight -hold home lasix hx of A fib -hold home pradaxa -hold amiodarone hx of htn -hold home htn meds for now GI/DVT ppx -protonix bid -oxycodone for pain <Jody Rebolledo MD - Last Filed: 06/10/16 17:11> Objective - Vital Signs/Intake and Output Vital Signs (last 24 hours): Temp Pulse Resp BP Pulse Ox 97.6 F 63 18 116/45 L 96 06/10/16 13:14 06/10/16 13:14 06/10/16 13:14 06/10/16 13:14 06/10/16 10:20 Intake and Output: 06/10/16 06/10/16 06:59 18:59 Output Total 50 Balance -50 - Medications Medications: Current Medications Amiodarone HCl (Cordarone) 200 mg PO BID [facility] Last Admin: 06/10/16 11:15 Dose: Not Given Atorvastatin Calcium (Lipitor) 40 mg PO DAILY [facility] Metronidazole (Flagyl) 100 mls @ 100 mls/hr IVPB Q8H [facility] PRN Reason: Protocol Last Admin: 06/10/16 13:19 Dose: 100 mls/hr Levofloxacin/Dextrose (Levaquin 250mg) 50 mls @ 100 mls/hr IVPB Q48H [facility] Last Admin: 06/10/16 09:04 Dose: 100 mls/hr Aztreonam 500 mg/ Sodium (Chloride) 100 mls @ 100 mls/hr IVPB Q8 [facility] PRN Reason: Protocol Stop: 06/17/16 08:31 Pantoprazole Sodium (Protonix Inj) 40 mg IVP Q12 [facility] Last Admin: 06/10/16 10:09 Dose: 40 mg - Labs Labs: 06/10/16 07:00 06/10/16 09:00 PT 23.7 Seconds (9.9-11.8) H 06/10/16 02:15 INR 2.19 (0.93-1.08) H 06/10/16 02:15 APTT 45.0 Seconds (23.7-30.8) H 06/10/16 02:15 Attending/Attestation - Attestation I have personally seen and examined this patient.: Yes I have fully participated in the care of the patient.: Yes I have reviewed all pertinent clinical information, including history, physical exam and plan: Yes Notes (Text): Patient was seen and examined with medical field representative .Agreed with resident assessment and plan. 61 year old male with past medical history of HTN, dilated cardiomyopathy, a fib on amiodrone and anticoagulation with apixiban was discharged from hospital yesterday was readmitted last night and is found to have sepsis due to HCAP Pneumonia /Colitis, patient is also found to have hypotension due to sepsis , acute renal failure due to hypotension, and sepsis, also found to have elevated LFT. Patient is getting fluid bolus, on antibiotics for HCAP and colitis, ID is consulted, case was discussed with ICU attending, if blood pressure will not improve, will need to go to ICU. We will hold amiodrone due to elevated LFT, GI and surgery are consulted.Abdominal USG showed gall stone , no evidence of cholycystitis, Patient is DNR and DNI Management plan was discussed in detail with patient Education was provided.
[2016-06-10] MEDS ORDERED: Morphine 2 mg/ml ISec IVP ONE (15:19)
[2016-06-10] MEDS ORDERED: HYDROmorphone 0.5 mg/0.5 ml ISec IVP STA (15:31)
--- NOTE | 2016-06-10 15:38 | CON ---
DATE: 06/10/2016 REASON FOR CONSULTATION: Atrial fibrillation, flutter in the coronary arteries, cardiomyopathy, card iac evaluation, admitted with abdominal pain, chest pain, pain all over the body. BRIEF CLINICAL HISTORY: This is a 61-year-old male admitted multiple times with multiple medical rec ords and history of nonischemic cardiomyopathy, afib, rate control, noncompliance with medication, wh o initially said that he had a thrombus in the LAD on the last admission, which was far from reality. The patient had a cardiac catheterization done that shows nonischemic cardiomyopathy, admitted with complaint of abdominal pain, chest pain, pain all over the body, back pain. PAST MEDICAL HISTORY: Significant for nonischemic cardiomyopathy, status post cardiac catheterizatio n 2015 when the patient was admitted with a different medical record. Film review showed normal jonn naries and normal left main, trifurcating LAD and circumflex and the ramus intermedius. Circumflex e ssentially free of significant disease. Ramus intermedius essentially free of significant disease. The right coronary artery is dominant, essentially free of significant disease, ejection is 35%. No thrombus noted in any of the coronaries. At the time of cardiac catheterization, ejection fraction 3 5%. No thrombus noted in any of the coronaries. Previous echo shows ejection fraction 20-25%, sever e global hypokinesis, moderate to severe mitral regurgitation, history of severe tricuspid regurgitat ion, moderate pulmonary hypertension dated 12/06/2015. The patient has history of chronic atrial fib rillation, congestive heart failure, nonischemic cardiomyopathy. Currently, the patient is on Pradax a 150 mg, is status post nephrectomy, history of bleeding ulcer, history of exploratory laparotomy, c omplication by tracheostomy and PEG. Since then, patient made himself a DNR. History of bleeding pe ptic ulcer, history of cauterization. Cardiac workup as follows, cardiac catheterization 08/17/2015 normal coronaries, decreased ventricula r ejection fraction 35%, dated 08/17/2015. Last echo 06/04/2014 and then repeat echo was done 2015. Ejection fraction 20-25%, moderate to severe mitral regurgitation, severe tricuspid regurgitat ion, pulmonary hypertension. ALLERGIES: MORPHINE. CURRENT MEDICATIONS: Cardizem-CD 120, spironolactone 25, potassium 20 mEq, metoprolol succinate 50, lisinopril, Pradaxa 150, atorvastatin, amiodarone 200. REVIEW OF SYSTEMS: As per HPI. PHYSICAL EXAMINATION: VITAL SIGNS: Temperature afebrile, heart rate of 42, blood pressure 116/45. HEENT: PERRLA. Extraocular muscles intact. NECK: Supple. No carotid bruits. No thyromegaly. CHEST: Clear to auscultation. HEART: S1, S2 regular. ABDOMEN: Soft. EXTREMITIES: Clubbing and cyanosis negative. LABORATORY DATA: Blood workup as follows: WBC 13.5, hemoglobin 13.8, hematocrit 43.8, platelet coun t 200, sodium 130, potassium 5.1, chloride 102, carbon dioxide 23, anion gap of 17, BUN 55, creatinin e 3.3. IMPRESSION: Chronic renal insufficiency, getting worse, INR 2.1 coagulopathy, diabetes, hypertension , hyperlipidemia, history of coronary artery disease, nonischemic cardiomyopathy, pulmonary hypertens ion, history of atrial fibrillation, mitral regurgitation, tricuspid regurgitation. RECOMMENDATION: We will hold the Pradaxa because of elevated INR as well as elevated BUN and creatin ine. Repeat a stat SMA-7 and the PT INR. The PT INR therapy was started 2.5 mg. Otherw ise, we will try to treat medically. We will follow with you. Thank you, Dr. Robertson for providing the opportunity in taking care of the patient. Jody Blevins MD cc: [phone] TT: 06/10/2016 15:38:03 Confirmation # [id number] Dictation # [id number]
--- NOTE | 2016-06-10 15:40 | CON ---
DATE: 06/10/2016 REQUESTING PHYSICIAN: Dr. Kent. REASON FOR CONSULTATION: I have been asked to see this 61-year-old male with multiple comorbidities including cardiomyopathy, atrial fibrillation, hypertension, depression, TIA, coronary artery disease , who was just discharged from the hospital yesterday after an admission for decompensated congestive heart failure, who now comes back with left-sided chest pain and shortness of breath. He also admit s to some vague abdominal pain. Routine blood work shows elevated AST and ALT. The patient denies a ny alcohol use. SOCIAL HISTORY: He still smokes under half pack of cigarettes per day. PAST MEDICAL HISTORY: As above. PAST SURGICAL HISTORY: Notable for hiatal hernia repair and tonsillectomy. REVIEW OF SYSTEMS: A 14-point review of systems is notable for shortness of breath, chest pain, and abdominal pain. PHYSICAL EXAMINATION: GENERAL: Well-developed male lying in bed in no acute distress. VITAL SIGNS: Reveal temperature of 97.8, blood pressure of 116/45, heart rate of 68. HEENT: Reveal sclerae to be white, conjunctivae pale. NECK: Supple. CHEST: Reveals scattered rales with decreased breath sounds. HEART: Reveals an irregular rate with a II/ systolic murmur. ABDOMEN: Soft, nontender. EXTREMITIES: Show no edema. LABORATORY DATA: Reveal white blood cell count of 13.5, hemoglobin 13.8. Chemistries revealed AST o f 654, ALT 468, alkaline phosphatase of 102, total bilirubin of 1.2. LDH of 1430 on admission to the hospital. IMPRESSION: A 61-year-old male with dilated cardiomyopathy, atrial fibrillation, coronary artery dis ease, admitted to the hospital with chest pain, shortness of breath, and abdominal pain with elevated liver enzymes. Chest x-ray shows an infiltrate at the right lower lung base. Abdominal ultrasound shows gallstones and a thickened gallbladder wall secondary to edema. There is no biliary ductal dil atation. He does have an irregular contour to the liver border suggestive of cirrhosis. CT scan of the abdomen and pelvis revealed periportal edema with gallbladder with stone and sludge, cirrhosis an d ascites. I suspect that the elevated liver enzymes are secondary to passive congestion of the live r from his dilated cardiomyopathy and heart failure. The patient does have a gallstone, but is at hi gh risk for surgery. He is a DNR/DNI. RECOMMENDATIONS: 1. Check hepatitis serology. 2. Supportive care with conservative treatment. Devon Barbour MD cc: [phone] TT: 06/10/2016 15:40:44 Confirmation # [id number] Dictation # [id number]
--- NOTE | 2016-06-10 16:00 | RAD ---
HISTORY: CHF COMPARISON: 06/10/2016 FINDINGS: LUNGS: Infiltrate at right lung base. PLEURA: No significant pleural effusion identified, no pneumothorax apparent. CARDIOVASCULAR: Moderate cardiomegaly. Infiltrate at right lung base OSSEOUS STRUCTURES: No significant abnormalities. VISUALIZED UPPER ABDOMEN: Normal. OTHER FINDINGS: None. IMPRESSION: No change in right lower lobe infiltrate
--- NOTE | 2016-06-10 16:00 | CP.PCM.CON ---
<Kirk Cortez - Last Filed: 06/10/16 15:56> History of Present Illness - History of Present Illness History of Present Illness: General surgery consult note for Dr. Kwan CC: abdominal pain x 3 days. HPI: 61 yo M with PMHx of HTN, OR, dilated cardiomyopathy, AFib, TIA, depression C/O of intermittent dyspnea x 9 months, intermittent sweating x 1 day , and constant abdominal pain x 3 days that began when eating a peanut butter and jelly sandwich but was not thereafter exacerbated or improved by eating. There are no exacerbating or improving factors. He denies any previous similar episodes of abd pain. Pt has not had any food or liquid oral intake since . Pt denies fevers, chills. Pt endorses nausea, non-bloody diarrhea, non- bloody non-bilious vomiting, chest pain, SOB. PMH: HTN, OR, dilated cardiomyopathy, AFib, TIA, depression, incarcerated large bowel hernia, renal cancer, short bowel syndrome PSH: tonsillectomy, hiatal hernia repair, abdominal hernia repair, colostomy, colostomy reversal, bowel resection, R nephrectomy All: fluphenazine enanthate, fluphenazine HCl, morphine, penicillin FH: mother had breast ca, father had OR. SH: 80 pack years, denies current consumption of alcoholic beverages or recreational drug use. Review of Systems - Constitutional Constitutional: Daytime Sleepiness, Excessive Sweating, Fatigue, Lethargy - EENT Eyes: absent: Change in Vision Nose/Mouth/Throat: absent: Nasal Trauma - Cardiovascular Cardiovascular: Chest Pain, Chest Pain at Rest, Diaphoresis, Dyspnea - Respiratory Respiratory: Dyspnea - Gastrointestinal Gastrointestinal: Abdominal Pain, Bloating, Diarrhea, Nausea, Vomiting. absent : Fecal Incontinence - Musculoskeletal Musculoskeletal: Back Pain - Integumentary Integumentary: absent: New Lesions - Psychiatric Psychiatric: Irritability - Endocrine Endocrine: Excessive Sweating, Fatigue Past Patient History - Infectious Disease Hx of Infectious Diseases: None - Tetanus Immunizations Tetanus Immunization: Unknown - Past Medical History & Family History Past Medical History?: Yes - Past Social History Smoking Status: Heavy Smoker > 10 Cigarettes Daily - CARDIAC Hx Cardiac Disorders: Yes (chest pain, mi) Hx Cardia Arrhythmia: Yes (A-fib) Hx Circulatory Problems: Yes Hx Congestive Heart Failure: Yes Hx Hypertension: Yes Other/Comment: Cardiac arrest, ischemic cardioimyopathy - PULMONARY Hx Respiratory Disorders: Yes Hx Chronic Obstructive Pulmonary Disease (COPD): Yes Hx Pneumonia: Yes - NEUROLOGICAL Hx Neurological Disorder: Yes Hx Transient Ischemic Attacks (TIA): Yes - HEENT Hx HEENT Problems: No - RENAL Hx Chronic Kidney Disease: No - ENDOCRINE/METABOLIC Hx Endocrine Disorders: No - HEMATOLOGICAL/ONCOLOGICAL Hx Blood Disorders: Yes Hx Anemia: Yes Hx Cancer: (denies) Hx Chemotherapy: (denies) Hx Hepatitis C: Yes - INTEGUMENTARY Hx Dermatological Problems: Yes Other/Comment: multiple scabs to ble "from boots rubbing against my skin" pt stated, skin discolorations to b/l knees, pt denies bruising, multiple scars to arms and neck from cutting at age 15 - MUSCULOSKELETAL/RHEUMATOLOGICAL Hx Falls: No - GASTROINTESTINAL Hx Gastrointestinal Disorders: Yes (cirrhosis, ascites) Hx Ulcer: Yes (bleeding u lcer) Other/Comment: GI bleed, short bowel syndrome, 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 - GENITOURINARY/GYNECOLOGICAL Hx Genitourinary Disorders: No Hx Prostate Problems: (pt denies) - PSYCHIATRIC Hx Substance Use: No - SURGICAL HISTORY Other/Comment: Hernia repair, fistula colon resection, tonsillectomy, colostomy with reversal, right kidney removed, - ANESTHESIA Hx Anesthesia: Yes Hx Anesthesia Reactions: No Hx Malignant Hyperthermia: No Meds Allergies/Adverse Reactions: Allergies Allergy/AdvReac Type Severity Reaction Status Date / Time fluphenazine enanthate Allergy RASH Verified 06/07/16 12:54 [From Prolixin] fluphenazine HCl Allergy RASH Verified 06/07/16 12:54 [From Prolixin] morphine Allergy RASH Verified 06/07/16 12:54 Penicillins Allergy RASH Verified 06/07/16 12:54 venom-honey bee Allergy ANAPHYLAXIS Verified 06/07/16 12:54 [bee venom (honey bee)] - Medications Medications: Current Medications Amiodarone HCl (Cordarone) 200 mg PO BID [facility] Last Admin: 06/10/16 11:15 Dose: Not Given Atorvastatin Calcium (Lipitor) 40 mg PO DAILY [facility] Metronidazole (Flagyl) 100 mls @ 100 mls/hr IVPB Q8H [facility] PRN Reason: Protocol Last Admin: 06/10/16 13:19 Dose: 100 mls/hr Levofloxacin/Dextrose (Levaquin 250mg) 50 mls @ 100 mls/hr IVPB Q48H [facility] Last Admin: 06/10/16 09:04 Dose: 100 mls/hr Aztreonam 500 mg/ Sodium (Chloride) 100 mls @ 100 mls/hr IVPB Q8 [facility] PRN Reason: Protocol Stop: 06/17/16 08:31 Sodium Chloride (Sodium Chloride 0.9%) 1,000 mls @ 999 mls/hr IV .Q1H1M [facility] Stop: 06/10/16 16:18 Last Admin: 06/10/16 15:31 Dose: 999 mls/hr Pantoprazole Sodium (Protonix Inj) 40 mg IVP Q12 [facility] Last Admin: 06/10/16 10:09 Dose: 40 mg Physical Exam - Constitutional Appears: Non-toxic, No Acute Distress, Unkempt - Head Exam Head Exam: ATRAUMATIC, NORMOCEPHALIC - Eye Exam Eye Exam: Normal appearance - ENT Exam ENT Exam: Mucous Membranes Moist, Normal Exam - Respiratory Exam Respiratory Exam: NORMAL BREATHING PATTERN - Cardiovascular Exam Cardiovascular Exam: +S1, +S2 - GI/Abdominal Exam GI & Abdominal Exam: Distended, Guarding, Soft, Tenderness. absent: Firm - Rectal Exam Rectal Exam: Deferred - Exam External exam: absent: Ecchymosis, Erythema, Lacerations - Neurological Exam Neurological exam: Oriented x3 - Expanded Neurological Exam Expanded Neurological exam: Inattentive Patient oriented to: person, place, time Speech: Fluid Speech Coma Scale Eye Opening: SPONTANEOUS Coma Scale Motor Response: OBEYS COMMANDS Coma Scale Verbal: Oriented Coma Scale Total: 15 - Psychiatric Exam Psychiatric exam: Normal Affect, Normal Mood - Skin Skin Exam: Intact, Normal Color Results - Vital Signs Recent Vital Signs: Last Vital Signs Temp 97.6 F 06/10/16 13:14 Pulse 63 06/10/16 13:14 Resp 18 06/10/16 13:14 BP 116/45 L 06/10/16 13:14 Pulse Ox 96 06/10/16 10:20 - Labs Result Diagrams: 06/10/16 07:00 06/10/16 09:00 Labs: Laboratory Results - last 24 hr 06/10/16 06/10/16 06/10/16 07:00 07:45 09:00 WBC 13.5 H D RBC 5.00 Hgb 13.8 L Hct 43.8 MCV 87.6 MCH 27.6 MCHC 31.5 RDW 18.8 H Plt Count 200 MPV 10.9 Gran % 83.0 H Lymph % (Auto) 8.4 L [place] % (Auto) 8.4 H Eos % (Auto) 0.1 L Baso % (Auto) 0.1 Gran # 11.23 H Lymph # 1.1 L [place] # 1.1 H Eos # 0.0 Baso # 0.01 pO2 49 VBG pH 7.22 L VBG pCO2 52.0 VBG HCO3 21.3 VBG Total CO2 22.9 VBG O2 Sat (Calc) 81.5 H VBG Base Excess -6.8 L VBG Potassium 4.8 Glucose 60 L Lactate 2.5 H FiO2 21.0 Sodium 140 135.0 137 Potassium 5.1 H 5.1 H Chloride 104 106.0 102 Carbon Dioxide 20 L 23 Anion Gap 21 H 17 BUN 50 H 55 H Creatinine 3.2 H 3.3 H Est GFR ( Amer) 24 23 Est GFR (Non-Af Amer) 20 19 Random Glucose 66 L 82 Calcium 8.9 8.7 Phosphorus 5.7 H Magnesium 2.1 Total Bilirubin 1.4 H 1.2 AST 525 H 654 H ALT 362 H 468 H Alkaline Phosphatase 105 102 Troponin I 0.05 D Total Protein 6.1 5.8 Albumin 3.3 3.1 Globulin 2.8 2.7 Albumin/Globulin Ratio 1.2 1.1 Venous Blood Potassium 4.8 Urine Color Urine Appearance Urine pH Ur Specific [place] Urine Protein Urine Glucose (UA) Urine Ketones Urine Blood Urine Nitrate Urine Bilirubin Urine Urobilinogen Ur Leukocyte Esterase Urine RBC Urine WBC Ur Epithelial Cells Amorphous Sediment Urine Bacteria Hyaline Casts Fine Granular Casts Coarse Granular Casts Urine Other Ur Random Creatinine Ur Random Sodium Ur Random Urea Nitrogn 06/10/16 12:00 WBC RBC Hgb Hct MCV MCH MCHC RDW Plt Count MPV Gran % Lymph % (Auto) [place] % (Auto) Eos % (Auto) Baso % (Auto) Gran # Lymph # [place] # Eos # Baso # pO2 VBG pH VBG pCO2 VBG HCO3 VBG Total CO2 VBG O2 Sat (Calc) VBG Base Excess VBG Potassium Glucose Lactate FiO2 Sodium Potassium Chloride Carbon Dioxide Anion Gap BUN Creatinine Est GFR ( Amer) Est GFR (Non-Af Amer) Random Glucose Calcium Phosphorus Magnesium Total Bilirubin AST ALT Alkaline Phosphatase Troponin I Total Protein Albumin Globulin Albumin/Globulin Ratio Venous Blood Potassium Urine Color Yellow Urine Appearance Sl cloudy Urine pH 5.5 Ur Specific [place] >= 1.030 Urine Protein 100 H Urine Glucose (UA) Negative Urine Ketones Negative Urine Blood Trace-intact H Urine Nitrate Negative Urine Bilirubin Negative Urine Urobilinogen 0.2 Ur Leukocyte Esterase Negative Urine RBC 2 - 5 Urine WBC 1 - 3 Ur Epithelial Cells 0 - 2 Amorphous Sediment Moderate Urine Bacteria Many Hyaline Casts 1-4 Fine Granular Casts 0 - 2 Coarse Granular Casts Trace H Urine Other Uyeast Ur Random Creatinine 146 Ur Random Sodium 19 Ur Random Urea Nitrogn 368 - Imaging and Cardiology US - abdomen Status: Report reviewed by me Assessment & Plan - Assessment and Plan (Free Text) Assessment: This is a 61 yo M with PMHx of HTN, OR, dilated cardiomyopathy, AFib, TIA, renal ca, incarcerated abd hernia, colectomy with U/S positive for pleural effusion, ascites, 5 mm gall bladder wall thickening, and gallstones. Plan: - VS stable. - WBC count = 13.5, will follow. - Will reevaluate in AM tomorrow. - No surgical intervention at this time. Will continue to follow. - Continue medical management by primary team. - Follow LFTs. - F/U with hepatitis panel. - Discussed case with Dr. Adams. Kirk Cortez PGY-1 <Brodie Adams - Last Filed: 06/14/16 16:10> Results - Vital Signs Recent Vital Signs: Last Vital Signs Temp 98.6 F 06/13/16 00:00 Pulse 83 06/13/16 04:30 Resp 20 06/13/16 00:00 BP 100/74 06/13/16 00:00 Pulse Ox 94 L 06/13/16 00:00 - Labs Result Diagrams: 06/13/16 08:40 06/13/16 08:40 Attending/Attestation - Attestation I have personally seen and examined this patient.: Yes I have fully participated in the care of the patient.: Yes I have reviewed all pertinent clinical information: Yes Notes (Text): 06/14/16 16:09 Pt was seen and examined at bedside on 06/11/16 Agree with above note and assessment Pt with Ascites and Jaundice MRCP If MRCP is negative, no need for any surgical intervention. Plan d.w pt in detail.
--- NOTE | 2016-06-10 16:49 | CARD ---
APPROVED REPORT EKG Measurement Heart [id number] <Conclusion> Atrial fibrillation with slow ventricular response Left posterior fascicular block Abnormal ECG
--- NOTE | 2016-06-10 18:35 | CARD ---
APPROVED REPORT EKG Measurement Heart [id number] <Conclusion> Atrial fibrillation with slow ventricular response Nonspecific T wave abnormality Abnormal ECG
[2016-06-10 20:47] LABS: ADD MANUAL DIFF? NO
[2016-06-10 20:50] LABS: BASO # 0.01 K/mm3 (0.0-2.0); BASO % 0.1 % (0.0-3.0); GRAN # 15.18 (1.4-6.5); GRAN % 87.1 % (50.0-68.0); HEMATOCRIT 41.8 % (42.0-52.0); LYMPH # 0.8 (1.2-3.4); LYMPH % 4.3 % (22.0-35.0); MEAN CELL VOLUME 87.6 fL (80.0-105.0); MEAN CORPUSCULAR HEMOGLOBIN 28.1 pg (25.0-35.0); MEAN CORPUSCULAR HGB CONC 32.1 g/dl (31.0-37.0); MEAN PLATELET VOLUME 10.8 fl (7.0-11.0); MONO # 1.5 (0.1-0.6); MONO % 8.5 % (1.0-6.0); PLATELET COUNT 199 10^3/uL (120.0-450.0); RED CELL DISTRIBUTION WIDTH 19.2 % (11.5-14.5); WHITE BLOOD COUNT 17.4 10^3/ul (4.5-11.0)
[2016-06-10 20:59] LABS: ALB/GLOB RATIO 1.1 (1.1-1.8); BILIRUBIN,TOTAL 1.8 mg/dL (0.2-1.3); CALCIUM 8.3 mg/dL (8.4-10.5); MAGNESIUM 2.1 mg/dL (1.7-2.2); TOTAL PROTEIN 5.9 g/dL (5.8-8.3)
[2016-06-10 21:08] LABS: POTASSIUM 6.5 mmol/L (3.6-5.0)
[2016-06-10] MEDS ORDERED: Dextrose 50% SYRINGE Inj (50 ml) ONE (21:08)
[2016-06-10] MEDS ORDERED: Dextrose 50% SYRINGE Inj (50 ml) IVP ONE ×2 (21:08→21:38)
[2016-06-10] MEDS ORDERED: Insulin Regular 1 UNITS/0.01 ML ML IV ONE (21:10)
[2016-06-10] MEDS ORDERED: Sod Polystyrene Sulf 15 gm/60 ml Oral Susp PO ONE (21:10)
[2016-06-10] MEDS ORDERED: Albuterol 0.5% Inhal Sol (5 mg/ ml) 20 ml IH ONE (21:10)
[2016-06-10 21:30] LABS: TROPONIN I 0.08 ng/mL
--- NOTE | 2016-06-11 00:42 | CP.PCM.CON ---
<Eric Alvarez - Last Filed: 06/11/16 00:53> History of Present Illness - History of Present Illness History of Present Illness: This is a 61 yo male with past medical hx of MS, HTN, dilated cardiomyopathy, a fib, depression, TIA presenting with sob x 1 day. Pt was discharged from hospital yesterday. Pt was recently admitted for chf exacerbation. Pt got home and was fine for a few hrs. Afterwards, he began experiencing sob and chest pain as he walked from living room to bathroom. Chest pain was under left breast , no radiation, never felt this way before. It was /, then at time of evaluation 11/16. Nothing makes it better/worse. Pain is constant. No radiation to pain. Pain came on suddenly. He did not take any medication at home for it. The he called ambulance. Pt also complaining of dry cough x 1 week. Pt was admitted to medical floor. During the day however, patient was found to be hypotensive with BP of 57/40. Patient was lethargic but verbally arousable. Patient was complaining of lethargy and dizziness. Patient was given 1 liter NS bolus and BP improved slightly to 78/46. Patient remained lethargic. ICU evaluation requested. Stat CXR and another 1 Liter NS bolus were ordered. Patient was complaining of lower abdominal pain and requested pain medications. Denies headache, fever, chills, shortness of breath, nausea or vomiting. Pt was transferred to ICU and attempt at central line was placed. However, pt was non compliant and central line attempt had to be aborted. PMH: MS, dilated cardiomyopathy, HTN, a fib, depression, TIA PSH: stent, tonsillectomy, hiatal hernia repair Allergies: morphine, penicillin, fluphenazine FH: Breast cancer- mother, father -MS Social hx: 4-5 cigs/ day since age 15, no drinking, no drugs. Lives by himself in [place]. Does not work. Review of Systems - Review of Systems All systems: reviewed and no additional remarkable complaints except Review of Systems: Negative except as stated in HPI. Past Patient History - Infectious Disease Hx of Infectious Diseases: None - Tetanus Immunizations Tetanus Immunization: Unknown - Past Medical History & Family History Past Medical History?: Yes Past Family History: Reviewed and not pertinent - Past Social History Smoking Status: Heavy Smoker > 10 Cigarettes Daily Chewing Tobacco Use: No Cigar Use: No Alcohol: None Drugs: Denies Home Situation {Lives}: Alone Domestic Violence: Negative - CARDIAC Hx Cardiac Disorders: Yes (chest pain, mi) Hx Cardia Arrhythmia: Yes (A-fib) Hx Circulatory Problems: Yes Hx Congestive Heart Failure: Yes Hx Hypertension: Yes Other/Comment: Cardiac arrest, ischemic cardioimyopathy - PULMONARY Hx Respiratory Disorders: Yes Hx Chronic Obstructive Pulmonary Disease (COPD): Yes Hx Pneumonia: Yes - NEUROLOGICAL Hx Neurological Disorder: Yes Hx Transient Ischemic Attacks (TIA): Yes - HEENT Hx HEENT Problems: No - RENAL Hx Chronic Kidney Disease: No - ENDOCRINE/METABOLIC Hx Endocrine Disorders: No - HEMATOLOGICAL/ONCOLOGICAL Hx Blood Disorders: Yes Hx Anemia: Yes Hx Cancer: (denies) Hx Chemotherapy: (denies) Hx Hepatitis C: Yes - INTEGUMENTARY Hx Dermatological Problems: Yes Other/Comment: multiple scabs to ble "from boots rubbing against my skin" pt stated, skin discolorations to b/l knees, pt denies bruising, multiple scars to arms and neck from cutting at age 15 - MUSCULOSKELETAL/RHEUMATOLOGICAL Hx Falls: No - GASTROINTESTINAL Hx Gastrointestinal Disorders: Yes (cirrhosis, ascites) Hx Ulcer: Yes (bleeding u lcer) Other/Comment: GI bleed, short bowel syndrome, 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 - GENITOURINARY/GYNECOLOGICAL Hx Genitourinary Disorders: No Hx Prostate Problems: (pt denies) - PSYCHIATRIC Hx Substance Use: No - SURGICAL HISTORY Other/Comment: Hernia repair, fistula colon resection, tonsillectomy, colostomy with reversal, right kidney removed, - ANESTHESIA Hx Anesthesia: Yes Hx Anesthesia Reactions: No Hx Malignant Hyperthermia: No Meds Allergies/Adverse Reactions: Allergies Allergy/AdvReac Type Severity Reaction Status Date / Time fluphenazine enanthate Allergy RASH Verified 06/07/16 12:54 [From Prolixin] fluphenazine HCl Allergy RASH Verified 06/07/16 12:54 [From Prolixin] morphine Allergy RASH Verified 06/07/16 12:54 Penicillins Allergy RASH Verified 06/07/16 12:54 venom-honey bee Allergy ANAPHYLAXIS Verified 06/07/16 12:54 [bee venom (honey bee)] - Medications Medications: Current Medications Amiodarone HCl (Cordarone) 200 mg PO BID [facility] Last Admin: 06/10/16 11:15 Dose: Not Given Atorvastatin Calcium (Lipitor) 40 mg PO DAILY [facility] Metronidazole (Flagyl) 100 mls @ 100 mls/hr IVPB Q8H [facility] PRN Reason: Protocol Last Admin: 06/10/16 18:41 Dose: 100 mls/hr Levofloxacin/Dextrose (Levaquin 250mg) 50 mls @ 100 mls/hr IVPB Q48H [facility] Last Admin: 06/10/16 09:04 Dose: 100 mls/hr Aztreonam 500 mg/ Sodium (Chloride) 100 mls @ 100 mls/hr IVPB Q8 [facility] PRN Reason: Protocol Stop: 06/17/16 08:31 Last Admin: 06/10/16 22:50 Dose: 100 mls/hr Pantoprazole Sodium (Protonix Inj) 40 mg IVP Q12 [facility] Last Admin: 06/10/16 21:43 Dose: 40 mg Physical Exam - Constitutional Appears: Toxic, Chronically Ill - Head Exam Head Exam: ATRAUMATIC, NORMAL INSPECTION, NORMOCEPHALIC - Eye Exam Eye Exam: EOMI - ENT Exam ENT Exam: Mucous Membranes Moist - Respiratory Exam Respiratory Exam: Decreased Breath Sounds. absent: Accessory Muscle Use, Respiratory Distress - Cardiovascular Exam Cardiovascular Exam: Irregular Rhythm, +S1, +S2 - GI/Abdominal Exam GI & Abdominal Exam: Normal Bowel Sounds, Soft. absent: Tenderness - Extremities Exam Extremities exam: Positive for: normal inspection - Neurological Exam Neurological exam: Alert - Psychiatric Exam Psychiatric exam: Flat Affect - Skin Skin Exam: Dry, Intact, Normal Color, Warm Results - Vital Signs Recent Vital Signs: Last Vital Signs Temp 97.5 F L 06/11/16 00:00 Pulse 75 06/11/16 00:00 Resp 28 H 06/11/16 00:00 BP 93/37 L 06/11/16 00:00 Pulse Ox 96 06/11/16 00:00 - Labs Result Diagrams: 06/10/16 20:46 06/10/16 20:46 Labs: Laboratory Results - last 24 hr 06/10/16 06/10/16 06/10/16 07:00 07:45 09:00 WBC 13.5 H D RBC 5.00 Hgb 13.8 L Hct 43.8 MCV 87.6 MCH 27.6 MCHC 31.5 RDW 18.8 H Plt Count 200 MPV 10.9 Gran % 83.0 H Lymph % (Auto) 8.4 L [place] % (Auto) 8.4 H Eos % (Auto) 0.1 L Baso % (Auto) 0.1 Gran # 11.23 H Lymph # 1.1 L [place] # 1.1 H Eos # 0.0 Baso # 0.01 pO2 49 VBG pH 7.22 L VBG pCO2 52.0 VBG HCO3 21.3 VBG Total CO2 22.9 VBG O2 Sat (Calc) 81.5 H VBG Base Excess -6.8 L VBG Potassium 4.8 Glucose 60 L Lactate 2.5 H FiO2 21.0 Sodium 140 135.0 137 Potassium 5.1 H 5.1 H Chloride 104 106.0 102 Carbon Dioxide 20 L 23 Anion Gap 21 H 17 BUN 50 H 55 H Creatinine 3.2 H 3.3 H Est GFR ( Amer) 24 23 Est GFR (Non-Af Amer) 20 19 Random Glucose 66 L 82 Lactic Acid Calcium 8.9 8.7 Phosphorus 5.7 H Magnesium 2.1 Total Bilirubin 1.4 H 1.2 AST 525 H 654 H ALT 362 H 468 H Alkaline Phosphatase 105 102 Troponin I 0.05 D Total Protein 6.1 5.8 Albumin 3.3 3.1 Globulin 2.8 2.7 Albumin/Globulin Ratio 1.2 1.1 Venous Blood Potassium 4.8 Urine Color Urine Appearance Urine pH Ur Specific [place] Urine Protein Urine Glucose (UA) Urine Ketones Urine Blood Urine Nitrate Urine Bilirubin Urine Urobilinogen Ur Leukocyte Esterase Urine RBC Urine WBC Ur Epithelial Cells Amorphous Sediment Urine Bacteria Hyaline Casts Fine Granular Casts Coarse Granular Casts Urine Other Ur Random Creatinine Ur Random Sodium Ur Random Urea Nitrogn 06/10/16 06/10/16 12:00 20:46 WBC 17.4 H D RBC 4.77 Hgb 13.4 L Hct 41.8 L MCV 87.6 MCH 28.1 MCHC 32.1 RDW 19.2 H Plt Count 199 MPV 10.8 Gran % 87.1 H Lymph % (Auto) 4.3 L [place] % (Auto) 8.5 H Eos % (Auto) 0.0 L Baso % (Auto) 0.1 Gran # 15.18 H Lymph # 0.8 L [place] # 1.5 H Eos # 0.0 Baso # 0.01 pO2 VBG pH VBG pCO2 VBG HCO3 VBG Total CO2 VBG O2 Sat (Calc) VBG Base Excess VBG Potassium Glucose Lactate FiO2 Sodium 136 Potassium 6.5 H* D Chloride 103 Carbon Dioxide 16 L Anion Gap 24 H BUN 60 H Creatinine 4.4 H Est GFR ( Amer) 17 Est GFR (Non-Af Amer) 14 Random Glucose 40 L* D Lactic Acid 4.9 H* Calcium 8.3 L Phosphorus 7.0 H Magnesium 2.1 Total Bilirubin 1.8 H AST 3505 H ALT 2399 H Alkaline Phosphatase 117 Troponin I 0.08 D Total Protein 5.9 Albumin 3.1 Globulin 2.8 Albumin/Globulin Ratio 1.1 Venous Blood Potassium Urine Color Yellow Urine Appearance Sl cloudy Urine pH 5.5 Ur Specific [place] >= 1.030 Urine Protein 100 H Urine Glucose (UA) Negative Urine Ketones Negative Urine Blood Trace-intact H Urine Nitrate Negative Urine Bilirubin Negative Urine Urobilinogen 0.2 Ur Leukocyte Esterase Negative Urine RBC 2 - 5 Urine WBC 1 - 3 Ur Epithelial Cells 0 - 2 Amorphous Sediment Moderate Urine Bacteria Many Hyaline Casts 1-4 Fine Granular Casts 0 - 2 Coarse Granular Casts Trace H Urine Other [place] Ur Random Creatinine 146 Ur Random Sodium 19 Ur Random Urea Nitrogn 368 Assessment & Plan - Assessment and Plan (Free Text) Assessment: This is a 61 yo male with past medical hx of HTN, dilated cardiomyopathy, a fib , depression, TIA presenting with sob and chest pain, found to be hypotensive on medical floor, refractory hypotension after fluids, transferred to ICU 1. Sepsis -Likely secondary to HCAP pneumonia, colitis -leukocytosis at 13.5 -Remains Hypotensive -CXR show right basilar infiltrate -attempt at central line made but had to be aborted due to pt noncompliance -Repeat CXR pending -Patient has lactic acidosis -Elevated LFT, creatinine -bradshaw culture -pt has been transferred to ICU -Follow ID recommendations -Follow up procalcitonin -Continue aztreonam, levofloxacin, flagyl 2. Chest pain/sob -rule out ACS -CXR shows B/L pleural effusions and cardiomegaly, likely HCAP PNA -EKG shows a fib -cardiology consult. Dr. Taylor. recs appreciated. -we will trend cardiac enzymes -blood and urine cultures -pt has lactic acidosis -serial lactic acid -ct abdomen shows some ascites along with focal colitis 3. Hx of CHF -strict I/O -daily weight -hold home lasix 4. hx of A fib -resume amiodarone 5. Colitis -continue IV flagyl -blood/urine culture 6. Acute kidney injury -nephrology consult. recs appreciated -NS has been stopped -avoid overhydration, previous ef 20-25 percent -continue to follow BUN/CR 7. hx of htn -hold home htn meds for now 8. GI/DVT ppx -protonix bid -SCDs discussed with Dr. Acosta <Mahesh Acosta Q - Last Filed: 06/14/16 01:55> Results - Vital Signs Recent Vital Signs: Last Vital Signs Temp 98.6 F 06/13/16 00:00 Pulse 83 06/13/16 04:30 Resp 20 06/13/16 00:00 BP 100/74 06/13/16 00:00 Pulse Ox 94 L 06/13/16 00:00 - Labs Result Diagrams: 06/13/16 08:40 06/13/16 08:40 Labs: Laboratory Results - last 24 hr 06/12/16 06/13/16 06/13/16 07:00 08:40 11:25 WBC 6.0 D RBC 4.27 Hgb 11.7 L Hct 35.7 L MCV 83.6 MCH 27.4 MCHC 32.8 RDW 18.6 H Plt Count 63 L MPV 10.0 PT 36.5 H* INR 3.38 H Sodium 138 Potassium 4.2 Chloride 97 L Carbon Dioxide 27 Anion Gap 18 BUN 79 H Creatinine 5.2 H Est GFR ( Amer) 14 Est GFR (Non-Af Amer) 11 Random Glucose 93 Calcium 9.3 Phosphorus 5.2 H Magnesium 1.8 Total Bilirubin 1.3 AST 1435 H ALT 1882 H Alkaline Phosphatase 115 Total Protein 6.6 Albumin 4.2 Globulin 2.3 Albumin/Globulin Ratio 1.8 Procalcitonin 1.96 H Attending/Attestation - Attestation I have personally seen and examined this patient.: Yes I have fully participated in the care of the patient.: Yes I have reviewed all pertinent clinical information: Yes
[2016-06-11] MEDS: metroNIDAZOLE IV 500 mg/100 ml 100 ML IVPB SCH ×3 (02:26→19:13)
--- NOTE | 2016-06-11 07:25 | RAD ---
HISTORY: central line attempt COMPARISON: No prior. FINDINGS: LUNGS: Right inferolateral pleural effusion is and possible thickening. Right inferolateral pleural parenchymal consolidation. Infiltrate and/or underlying masses are some considerations. PLEURA: As above. No pneumothorax appreciated CARDIOVASCULAR: Cardiomegaly. Probable mild pulmonary venous congestion OSSEOUS STRUCTURES: No significant abnormalities. VISUALIZED UPPER ABDOMEN: Normal. OTHER FINDINGS: None. IMPRESSION: No pneumothorax appreciated Right lung base consolidation (underlying infiltrate/ atelectasis with or without mass here) need to be considered. Right inferolateral pleural parenchymal fusion/thickening/reaction. Cardiomegaly with probable mild pulmonary venous congestion with right pleural effusion .
[2016-06-11] MEDS ORDERED: Sodium Bicarbonate 8.4% 150 MEQ in Dextrose 5% In Water 1,000 ML IV SCH (08:45)
--- NOTE | 2016-06-11 09:18 | PN ---
DATE: 06/11/2016 SUBJECTIVE: The patient denies any chest pain or shortness of breath. He does not wish to engage in answering questions. VITAL SIGNS: Temperature is 98, pulse is 74, blood pressure is 166/80. Blood pressure over the night was in the 80s-90s. GENERAL: The patient comfortable, in no acute distress. HEENT: Anicteric sclerae. Moist mucosa. NECK: No JVD or adenopathy. CARDIAC: S1/S2. No murmurs. No rubs. Regular. RESPIRATORY: Clear to auscultation bilaterally. No wheezes, rales, or rhonchi. Good air entry. ABDOMEN: Bowel sounds are positive, soft, nontender, and nondistended. EXTREMITIES: No edema. Has 1+ pulses. Urine output 350. I am not sure if this is a good collection. LABORATORIES: Chemistry shows a potassium 6.5, anion gap is 24 with a creatinine of 4.4. AST is 3505, AST is 2399. White count of 17.4, hemoglobin 13.4. ASSESSMENT: 1. Hypokalemia. 2. Acute kidney injury with chronic kidney disease, stage III. 3. Bilateral pleural effusion. 4. Sepsis. 5. Ascites. 6. Coagulopathy. 7. Nonischemic cardiomyopathy with ejection fraction 20%. 8. Atrial fibrillation. Pradaxa on hold. 9. Hypotension. 10. Dyslipidemia. 11. Moderate pulmonary hypertension. 12. Moderate tricuspid regurgitation. 13. Moderate mitral regurgitation. 14. Metabolic acidosis. 15. DNR/DNI. PLAN: The patient is admitted to the hospital. He is critically ill. He is refusing intervention. The patient has hypokalemia. He had and a fractional excretion of urea that is low. It is difficult to say what the patient's volume status is intravascularly. He does have fusions on his chest x -ray, and his abdomen shows ascites. He is also septic at this point. I am not sure if this is from a pneumonia that may be forming in the right lung base. The patient is on aztreonam for antibiotics. His amiodarone has been placed on hold because of his hepatitis. His liver failure may be related to medications, and possibly amiodarone. His Lipitor has been placed on hold as well. He is on Protonix IV. Will discontinue Protonix, as this may cause acute kidney injury. I am concerned that he may be going into hepatorenal failure. He is linezolid. The patient has an echo that has been ordered. He will need IV fluids. I will place him on D5 normal saline. He had episode of hypoglycemia. This may be related to his acute hepatitis. The patient's MELD score is approximately 30. This has about a 50% mortality. His lactic acid is elevated. I did speak to the surgical elastic knitter hand frame to go over the case. The patient is critically ill, and is may go into multiorgan failure. At this point, he has been refusing treatment. I am not sure if he is a candidate for transplantation. He does have advanced cardiac disease. He is also DNR. I would suggest palliative care to evaluate the patient. He has refused blood work, so it is difficult to say what his current potassium is. Will attempt to repeat the patient's blood work. Abbe Robertson MD cc: [id number] TT: 06/11/2016 09:18:02 Confirmation # [id number] Dictation # [id number] MTDD
[2016-06-11] MEDS: Linezolid 600 mg in D5W 300 ml 300 ML IVPB SCH ×2 (09:33→21:43)
[2016-06-11] MEDS: Sodium Bicarbonate 8.4% 150 MEQ in Dextrose 5% In Water 1,000 ML IV SCH ×2 (09:42→19:55)
--- NOTE | 2016-06-11 09:58 | CP.PCM.PN ---
<Kirk Cortez - Last Filed: 06/12/16 12:25> Subjective - Date & Time of Evaluation Date of Evaluation: 06/11/16 Time of Evaluation: 07:00 - Subjective Subjective: General Surgery Progress Note for Dr. Adams This 61M was seen and examined this AM at bedside. Patient was transferred to ICU overnight. He continues to endorse lower abdominal pain. Denies fevers chills, nausea vomiting or diarrhea. Objective - Vital Signs/Intake and Output Vital Signs (last 24 hours): Temp Pulse Resp BP Pulse Ox 98 F 74 22 166/80 H 96 06/11/16 04:00 06/11/16 06:00 06/11/16 06:00 06/11/16 06:00 06/11/16 06:00 Intake and Output: 06/11/16 06/11/16 06:59 18:59 Intake Total 300 Output Total 350 Balance -50 - Medications Medications: Current Medications Amiodarone HCl (Cordarone) 200 mg PO BID [facility] Last Admin: 06/10/16 11:15 Dose: Not Given Atorvastatin Calcium (Lipitor) 40 mg PO DAILY [facility] Metronidazole (Flagyl) 100 mls @ 100 mls/hr IVPB Q8H [facility] PRN Reason: Protocol Last Admin: 06/11/16 02:26 Dose: 100 mls/hr Levofloxacin/Dextrose (Levaquin 250mg) 50 mls @ 100 mls/hr IVPB Q48H [facility] Last Admin: 06/10/16 09:04 Dose: 100 mls/hr Aztreonam 500 mg/ Sodium (Chloride) 100 mls @ 100 mls/hr IVPB Q8 [facility] PRN Reason: Protocol Stop: 06/17/16 08:31 Last Admin: 06/11/16 05:29 Dose: 100 mls/hr Linezolid (Zyvox 600mg/300ml D5w) 300 mls @ 200 mls/hr IVPB Q12 [facility] PRN Reason: Protocol Stop: 06/18/16 10:01 Last Admin: 06/11/16 09:33 Dose: 200 mls/hr Sodium Bicarbonate 150 meq/ (Dextrose) 1,150 mls @ 100 mls/hr IV .[id number] [facility] Last Admin: 06/11/16 09:42 Dose: 100 mls/hr - Labs Labs: 06/10/16 20:46 06/10/16 20:46 PT 23.7 Seconds (9.9-11.8) H 06/10/16 02:15 INR 2.19 (0.93-1.08) H 06/10/16 02:15 APTT 45.0 Seconds (23.7-30.8) H 06/10/16 02:15 - Constitutional Appears: No Acute Distress - Head Exam Head Exam: ATRAUMATIC, NORMOCEPHALIC - Eye Exam Eye Exam: EOMI, Normal appearance - ENT Exam ENT Exam: Mucous Membranes Moist - Respiratory Exam Respiratory Exam: NORMAL BREATHING PATTERN - Cardiovascular Exam Cardiovascular Exam: +S1, +S2 - GI/Abdominal Exam GI & Abdominal Exam: Distended, Soft - Neurological Exam Neurological Exam: Alert, Awake - Psychiatric Exam Psychiatric exam: Normal Affect, Normal Mood - Skin Skin Exam: Dry, Intact Assessment and Plan - Assessment and Plan (Free Text) Assessment: This is a 61 yo M with PMHx of HTN, [place], dilated cardiomyopathy, AFib, TIA, renal ca, incarcerated abd hernia, colectomy with U/S positive for pleural effusion, ascites, 5 mm gall bladder wall thickening, and gallstones. Plan: - VS stable. - WBC count = 17.4, will follow. - Will reevaluate in AM tomorrow. - No surgical intervention at this time. Will continue to follow. - Continue medical management by primary team. - Follow LFTs. - F/U with hepatitis panel. - Will followup MRCP. - Discussed case with Dr. Adams. Kirk Cortez PGY-1 <Brodie Adams B - Last Filed: 06/14/16 16:15> Objective - Vital Signs/Intake and Output Vital Signs (last 24 hours): Temp Pulse Resp BP Pulse Ox 98.6 F 83 20 100/74 94 L 06/13/16 00:00 06/13/16 04:30 06/13/16 00:00 06/13/16 00:00 06/13/16 00:00 - Labs Labs: 06/13/16 08:40 06/13/16 08:40 PT 36.5 Seconds (9.9-11.8) H* 06/13/16 11:25 INR 3.38 (0.93-1.08) H 06/13/16 11:25 APTT 45.0 Seconds (23.7-30.8) H 06/10/16 02:15 Attending/Attestation - Attestation I have personally seen and examined this patient.: Yes I have fully participated in the care of the patient.: Yes I have reviewed all pertinent clinical information, including history, physical exam and plan: Yes Notes (Text): 06/14/16 16:15 Pt was seen and examined at bedside on 06/11/16 Agree with above note and assessment Please see consult note.
[2016-06-11] MEDS ORDERED: Albumin Human 25% (25 gm/100 ml) IV ONE (10:24)
--- NOTE | 2016-06-11 10:31 | CP.PCM.PN ---
<Mark Ramirez - Last Filed: 06/11/16 13:25> Subjective - Date & Time of Evaluation Date of Evaluation: 06/11/16 Time of Evaluation: 07:00 - Subjective Subjective: Patient seen and examined at bedside. Patient was upgraded overnight to ICU due to severe hypotension and lethargy. Patient did not improved after aggressive IVF hydration. Upon ICU admission patient refused central line placement. Patient also refused Benito insertion and AM blood work. In morning patient is lethargic but responsive to questions. Patient complaints of abdominal pain. Unable to obtain further ROS due to lethargy. Objective - Vital Signs/Intake and Output Vital Signs (last 24 hours): Temp Pulse Resp BP Pulse Ox 98 F 74 22 166/80 H 96 06/11/16 04:00 06/11/16 06:00 06/11/16 06:00 06/11/16 06:00 06/11/16 06:00 Intake and Output: 06/11/16 06/11/16 06:59 18:59 Intake Total 300 Output Total 350 Balance -50 - Medications Medications: Current Medications Albumin Human (Albumin Human 25% (25 Gm/100 Ml)) 25 gm IV ONCE ONE Stop: 06/11/16 10:25 Albumin Human (Albumin Human 25% (12.5 Gm/50 Ml)) 25 gm IV Q4 [facility] Amiodarone HCl (Cordarone) 200 mg PO BID [facility] Last Admin: 06/10/16 11:15 Dose: Not Given Atorvastatin Calcium (Lipitor) 40 mg PO DAILY [facility] Metronidazole (Flagyl) 100 mls @ 100 mls/hr IVPB Q8H [facility] PRN Reason: Protocol Last Admin: 06/11/16 02:26 Dose: 100 mls/hr Levofloxacin/Dextrose (Levaquin 250mg) 50 mls @ 100 mls/hr IVPB Q48H [facility] Last Admin: 06/10/16 09:04 Dose: 100 mls/hr Aztreonam 500 mg/ Sodium (Chloride) 100 mls @ 100 mls/hr IVPB Q8 [facility] PRN Reason: Protocol Stop: 06/17/16 08:31 Last Admin: 06/11/16 05:29 Dose: 100 mls/hr Linezolid (Zyvox 600mg/300ml D5w) 300 mls @ 200 mls/hr IVPB Q12 [facility] PRN Reason: Protocol Stop: 06/18/16 10:01 Last Admin: 06/11/16 09:33 Dose: 200 mls/hr Sodium Bicarbonate 150 meq/ (Dextrose) 1,150 mls @ 100 mls/hr IV .[id number] [facility] Last Admin: 06/11/16 09:42 Dose: 100 mls/hr - Labs Labs: 06/10/16 20:46 06/10/16 20:46 PT 23.7 Seconds (9.9-11.8) H 06/10/16 02:15 INR 2.19 (0.93-1.08) H 06/10/16 02:15 APTT 45.0 Seconds (23.7-30.8) H 06/10/16 02:15 - Constitutional Appears: Toxic, Chronically Ill - Head Exam Head Exam: ATRAUMATIC, NORMAL INSPECTION, NORMOCEPHALIC - Eye Exam Eye Exam: EOMI - ENT Exam ENT Exam: Mucous Membranes Moist - Respiratory Exam Respiratory Exam: Decreased Breath Sounds. absent: Respiratory Distress - Cardiovascular Exam Cardiovascular Exam: Irregular Rhythm, +S1, +S2 - GI/Abdominal Exam GI & Abdominal Exam: Soft, Tenderness (Bilateral lower abdominal Tenderness), Normal Bowel Sounds - Neurological Exam Neurological Exam: Alert Additional comments: lethargic - Psychiatric Exam Psychiatric exam: Flat Affect - Skin Skin Exam: Dry, Normal Color Assessment and Plan - Assessment and Plan (Free Text) Assessment: 61 yo male with past medical hx of HTN, dilated cardiomyopathy, a fib, depression, TIA presenting with sob and chest pain, found to be hypotensive on medical floor, refractory hypotension after fluids, transferred to ICU for further care. Patient is DNR, DNI, and noncompliant to treatments Sepsis -Transferred to ICU -Likely secondary to HCAP pneumonia, colitis -Worsening leukocytosis at 17.4 -Remains Hypotensive -CXR show right basilar infiltrate -Repeat CXR showed no pneumothorax, right base consolidation. Right inferolateral pleural parenchymal fusion (see full report) -Worsening elevated LFT, creatinine -Blood and urine cultures showed no growth -Follow ID, nephro, GI recommendations -IVF D5, bicarb @100ml/hr -Continue aztreonam, levofloxacin, flagyl, and linezolid -Patient has lactic acidosis, possible hepatorenal failure -Patient refused central line replacement -Refused blood work -Palliative care consulted Chest pain/sob -rule out ACS -CXR shows B/L pleural effusions and cardiomegaly -EKG shows a fib -cardiology consult. Dr. Taylor. recs appreciated. -Troponin 0.04, 0.05 indeterminate -liquid diet -ct abdomen shows some ascites along with focal colitis Acute kidney injury -Hold Amiodarone and lipitor -nephrology consult. recs appreciated -avoid overhydration, previous ef 20-25 percent Colitis -IV flagyl 500 q 8 -blood/urine culture no growth -Follow GI recommendations -Hepatitis B Ag negative Hx of CHF -strict I/O -daily weight -hold home lasix hx of A fib -hold home pradaxa -hold amiodarone hx of htn -hold home htn meds for now GI/DVT ppx -protonix discontinued due to risk of kidney injury <Amaury MIRANDA,Xiomyelmersandra - Last Filed: 06/12/16 13:57> Objective - Vital Signs/Intake and Output Vital Signs (last 24 hours): Temp Pulse Resp BP Pulse Ox 98.2 F 78 14 108/53 L 94 L 06/12/16 04:00 06/12/16 06:00 06/12/16 06:00 06/12/16 06:00 06/12/16 06:00 Intake and Output: 06/12/16 06/12/16 06:59 18:59 Intake Total 2300 Output Total 500 Balance 1800 - Medications Medications: Current Medications Albumin Human (Albumin Human 25% (25 Gm/100 Ml)) 25 gm IV Q4 [facility] Last Admin: 06/12/16 08:38 Dose: 25 gm Amiodarone HCl (Cordarone) 200 mg PO BID [facility] Last Admin: 06/10/16 11:15 Dose: Not Given Atorvastatin Calcium (Lipitor) 40 mg PO DAILY [facility] Metronidazole (Flagyl) 100 mls @ 100 mls/hr IVPB Q8H [facility] PRN Reason: Protocol Last Admin: 06/12/16 11:02 Dose: 100 mls/hr Levofloxacin/Dextrose (Levaquin 250mg) 50 mls @ 100 mls/hr IVPB Q48H [facility] Last Admin: 06/12/16 08:15 Dose: 100 mls/hr Aztreonam 500 mg/ Sodium (Chloride) 100 mls @ 100 mls/hr IVPB Q8 [facility] PRN Reason: Protocol Stop: 06/17/16 08:31 Last Admin: 06/12/16 05:08 Dose: 100 mls/hr Linezolid (Zyvox 600mg/300ml D5w) 300 mls @ 200 mls/hr IVPB Q12 [facility] PRN Reason: Protocol Stop: 06/18/16 10:01 Last Admin: 06/12/16 09:10 Dose: 200 mls/hr Morphine Sulfate (Morphine) 2 mg IVP Q4H [facility] PRN Reason: Pain, moderate (4-7) Last Admin: 06/12/16 08:37 Dose: 2 mg - Labs Labs: 06/12/16 11:56 06/12/16 11:56 PT 23.7 Seconds (9.9-11.8) H 06/10/16 02:15 INR 2.19 (0.93-1.08) H 06/10/16 02:15 APTT 45.0 Seconds (23.7-30.8) H 06/10/16 02:15 Attending/Attestation - Attestation I have personally seen and examined this patient.: Yes I have fully participated in the care of the patient.: Yes I have reviewed all pertinent clinical information, including history, physical exam and plan: Yes Notes (Text): Patient was seen and examined with medical dosimetrist .Agreed with resident assessment and plan. 61 M with Non ischemic CMP,AF with sepsis /septic shock due to HCAP Pneumonia and colotis, LFT are worsening due to shock liver due to hypotension , also has oligo uric renal failure, patient has refused central line, alert,awake and oriented.Discussed in detail, on IV antibiotics as per ID.Cultures are negative so far. Cardiology/Nephrology/ID and critical care following. We will request hospice and palliative care consult. Prognosis is guarded. Management plan was discussed in detail with patient Education was provided.
[2016-06-11] MEDS ORDERED: Morphine 2 mg/ml ISec IVP STA ×2 (11:19→16:25)
--- NOTE | 2016-06-11 11:30 | CP.PCM.CON ---
History of Present Illness - History of Present Illness History of Present Illness: Palliative services consulted by Dr Floyd Rebolledo notified Reason: [place] of care/hospice discussion. HPI: Presented to ED with shortness of breath, cough,abdominal and chest pain.Chest x ray showed bilateral pleural effusions R>L. Labs;Wbc 13.5, PLT 200 , lactic acid 4.2, K 6.2, Creatinine 3.3, Elevated LFT's. PMHX: extensive cardiomyopathy, MS, pulmonary hypertension,s/p cardiopulmonary arrest, s/p cardiac cath., EF 20-25%,atrial fibrillation, CHF, HTN, TIA, renal cell carcinoma s/p right nephrectomy, GI bleed, short bowel syndrome, CKD III, TIA, cirrhosis,depression. Social History: Former smoker,denies alcohol or dug misuse.Lives alone. Family History: Mother of breast cancer. Father of MS. Advance Care Planning: The patient has a recent Advanced Directive dated 2015. He is DNR/DNI. Health care proxy is Mahnaz Efren Martinez ([phone]). Review of Systems: as per HPI. Past Patient History - Infectious Disease Hx of Infectious Diseases: None - Tetanus Immunizations Tetanus Immunization: Unknown - Past Medical History & Family History Past Medical History?: Yes - Past Social History Smoking Status: Heavy Smoker > 10 Cigarettes Daily - CARDIAC Hx Cardiac Disorders: Yes (chest pain, mi) Hx Cardia Arrhythmia: Yes (A-fib) Hx Circulatory Problems: Yes Hx Congestive Heart Failure: Yes Hx Hypertension: Yes Other/Comment: Cardiac arrest, ischemic cardioimyopathy - PULMONARY Hx Respiratory Disorders: Yes Hx Chronic Obstructive Pulmonary Disease (COPD): Yes Hx Pneumonia: Yes - NEUROLOGICAL Hx Neurological Disorder: Yes Hx Transient Ischemic Attacks (TIA): Yes - HEENT Hx HEENT Problems: No - RENAL Hx Chronic Kidney Disease: No - ENDOCRINE/METABOLIC Hx Endocrine Disorders: No - HEMATOLOGICAL/ONCOLOGICAL Hx Blood Disorders: Yes Hx Anemia: Yes Hx Cancer: (denies) Hx Chemotherapy: (denies) Hx Hepatitis C: Yes - INTEGUMENTARY Hx Dermatological Problems: Yes Other/Comment: multiple scabs to ble "from boots rubbing against my skin" pt stated, skin discolorations to b/l knees, pt denies bruising, multiple scars to arms and neck from cutting at age 15 - MUSCULOSKELETAL/RHEUMATOLOGICAL Hx Falls: No - GASTROINTESTINAL Hx Gastrointestinal Disorders: Yes (cirrhosis, ascites) Hx Ulcer: Yes (bleeding u lcer) Other/Comment: GI bleed, short bowel syndrome, 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 - GENITOURINARY/GYNECOLOGICAL Hx Genitourinary Disorders: No Hx Prostate Problems: (pt denies) - PSYCHIATRIC Hx Substance Use: No - SURGICAL HISTORY Other/Comment: Hernia repair, fistula colon resection, tonsillectomy, colostomy with reversal, right kidney removed, - ANESTHESIA Hx Anesthesia: Yes Hx Anesthesia Reactions: No Hx Malignant Hyperthermia: No Meds Allergies/Adverse Reactions: Allergies Allergy/AdvReac Type Severity Reaction Status Date / Time fluphenazine enanthate Allergy RASH Verified 06/07/16 12:54 [From Prolixin] fluphenazine HCl Allergy RASH Verified 06/07/16 12:54 [From Prolixin] morphine Allergy RASH Verified 06/07/16 12:54 Penicillins Allergy RASH Verified 06/07/16 12:54 venom-honey bee Allergy ANAPHYLAXIS Verified 06/07/16 12:54 [bee venom (honey bee)] - Medications Medications: Current Medications Albumin Human (Albumin Human 25% (12.5 Gm/50 Ml)) 25 gm IV Q4 [facility] Amiodarone HCl (Cordarone) 200 mg PO BID [facility] Last Admin: 06/10/16 11:15 Dose: Not Given Atorvastatin Calcium (Lipitor) 40 mg PO DAILY [facility] Metronidazole (Flagyl) 100 mls @ 100 mls/hr IVPB Q8H [facility] PRN Reason: Protocol Last Admin: 06/11/16 02:26 Dose: 100 mls/hr Levofloxacin/Dextrose (Levaquin 250mg) 50 mls @ 100 mls/hr IVPB Q48H [facility] Last Admin: 06/10/16 09:04 Dose: 100 mls/hr Aztreonam 500 mg/ Sodium (Chloride) 100 mls @ 100 mls/hr IVPB Q8 [facility] PRN Reason: Protocol Stop: 06/17/16 08:31 Last Admin: 06/11/16 05:29 Dose: 100 mls/hr Linezolid (Zyvox 600mg/300ml D5w) 300 mls @ 200 mls/hr IVPB Q12 [facility] PRN Reason: Protocol Stop: 06/18/16 10:01 Last Admin: 06/11/16 09:33 Dose: 200 mls/hr Sodium Bicarbonate 150 meq/ (Dextrose) 1,150 mls @ 100 mls/hr IV .[id number] [facility] Last Admin: 06/11/16 09:42 Dose: 100 mls/hr Physical Exam - Constitutional Appears: Cachectic, Chronically Ill - Eye Exam Eye Exam: PERRL Pupil Exam: NORMAL ACCOMODATION - ENT Exam ENT Exam: Mucous Membranes Moist, Normal Oropharynx - Neck Exam Neck exam: Positive for: Normal Inspection - Respiratory Exam Respiratory Exam: Decreased Breath Sounds, NORMAL BREATHING PATTERN - Cardiovascular Exam Cardiovascular Exam: Irregular Rhythm, +S1, +S2 - GI/Abdominal Exam GI & Abdominal Exam: Distended, Normal Bowel Sounds, Soft Additional comments: non tender - Extremities Exam Extremities exam: Positive for: pedal edema, pedal pulses present - Back Exam Back exam: NORMAL INSPECTION - Neurological Exam Neurological exam: Alert, Oriented x3 - Skin Skin Exam: Dry, Pallor - Additional Findings Additional findings: Palliative performance scale rating 30 % Results - Vital Signs Recent Vital Signs: Last Vital Signs Temp 98 F 06/11/16 04:00 Pulse 74 06/11/16 06:00 Resp 22 06/11/16 06:00 BP 166/80 H 06/11/16 06:00 Pulse Ox 96 06/11/16 06:00 - Labs Result Diagrams: 06/10/16 20:46 06/10/16 20:46 Labs: Laboratory Results - last 24 hr 06/10/16 06/10/16 06/10/16 12:00 20:46 21:32 WBC 17.4 H D RBC 4.77 Hgb 13.4 L Hct 41.8 L MCV 87.6 MCH 28.1 MCHC 32.1 RDW 19.2 H Plt Count 199 MPV 10.8 Gran % 87.1 H Lymph % (Auto) 4.3 L [place] % (Auto) 8.5 H Eos % (Auto) 0.0 L Baso % (Auto) 0.1 Gran # 15.18 H Lymph # 0.8 L [place] # 1.5 H Eos # 0.0 Baso # 0.01 Sodium 136 Potassium 6.5 H* D Chloride 103 Carbon Dioxide 16 L Anion Gap 24 H BUN 60 H Creatinine 4.4 H Est GFR ( Amer) 17 Est GFR (Non-Af Amer) 14 POC Glucose (mg/dL) 110 Random Glucose 40 L* D Lactic Acid 4.9 H* Calcium 8.3 L Phosphorus 7.0 H Magnesium 2.1 Total Bilirubin 1.8 H AST 3505 H ALT 2399 H Alkaline Phosphatase 117 Troponin I 0.08 D Total Protein 5.9 Albumin 3.1 Globulin 2.8 Albumin/Globulin Ratio 1.1 Urine Color Yellow Urine Appearance Sl cloudy Urine pH 5.5 Ur Specific [employer] >= 1.030 Urine Protein 100 H Urine Glucose (UA) Negative Urine Ketones Negative Urine Blood Trace-intact H Urine Nitrate Negative Urine Bilirubin Negative Urine Urobilinogen 0.2 Ur Leukocyte Esterase Negative Urine RBC 2 - 5 Urine WBC 1 - 3 Ur Epithelial Cells 0 - 2 Amorphous Sediment Moderate Urine Bacteria Many Hyaline Casts 1-4 Fine Granular Casts 0 - 2 Coarse Granular Casts Trace H Urine Other Uyeast Ur Random Creatinine 146 Ur Random Sodium 19 Ur Random Urea Nitrogn 368 Assessment & Plan - Assessment and Plan (Free Text) Assessment: 61 year old male admitted with hyperkalemia, PAN,bilateral pleural effusions, transaminitis,coagulopathy,ascites, HTN. History of multiple comorbidities, see HPM. The patient is sitting up in bed.He denies chest pain, but does admit to abdominal discomfort. He is alert and oriented. I spoke to the patient about his advance directive. Patient affirms that he does not want to be intubated, CPR, mechanical ventilation, dialysis or artificial feeding via PEG. Patient states he does not want aggressive interventions. I explained that his medical condition is continuing to decline and that there is little more that can be done to halt the process. Patient states wants conservative care only. I asked if he was willing to consider comfort care as an option. I explained that he could receive treatment for pain and symptom control and that he would not have to be hospitalized in the the future. Patient states he is interested in this option but wants it discussed with his health care proxy in his presence. I also spoke with patient's health care proxy, Piedad Edwards via phone. I explained the earlier conversation that I had with Chidi regarding his medical status and option for comfort care. Piedad is very supportive of Chidi and states she will honor his wishes. I explained hospice services in detail. Piedad understands what hospice care is and is agreeable to caring for Chidi in his own home. Piedad states she is flying in from [place] and expects to arrive tomorrow afternoon. I told her that Chidi wanted her input in making this decision. Time spent in discussing goals of care and advance care planning with patient and sibling, 40 minutes Plan: Will assist with establishing goals of care advance care planning
--- NOTE | 2016-06-11 11:37 | PN ---
DATE: 06/11/2016 SUBJECTIVE: The patient was transferred to ICU with shock. He currently is lying in bed with some s hortness of breath and some diffuse abdominal pain. He denies any nausea, vomiting. PHYSICAL EXAMINATION: VITAL SIGNS: At noon yesterday, his blood pressure apparently was down to 57/40. At 11:00 last nigh t, his blood pressure was 81/40. Currently is 118/44. He is refusing pressors. GENERAL: He is awake, alert. ABDOMEN: Soft, mild diffuse tenderness. LABORATORY DATA: Reveal white blood cell count of 17.4, hemoglobin 13.4. Chemistries reveal AST up to 3505 from AST of 64, ALT 2399 from 468, total bilirubin up to 1.8. Alkaline phosphatase is normal . IMPRESSION: A 61-year-old male with dilated cardiomyopathy with shock, rapid rise in his liver enzym es consistent with shock liver, now with acute renal failure with BUN up to 60, creatinine 4.4, potas sium of 6.5, bicarbonate of 16. The patient is refusing pressors. Given his multiple comorbidities, there is not much more that can be offered to this patient. RECOMMENDATIONS: Suggest palliative care. I have spoken with Donna Wilson, the palliative care jesus se, as well as forestry adviser, Dr. Villavicencio. The patient also has cirrhosis of the liver. Devon Barbour MD cc: [phone] TT: 06/11/2016 11:37:17 Confirmation # [id number] Dictation # [id number] tasha
[2016-06-11] MEDS: Albumin Human 25% (12.5 gm/50 ml) IV SCH ×2 (12:00→15:45)
[2016-06-11] MEDS ORDERED: Albumin Human 25% (12.5 gm/50 ml) IV SCH (12:00)
--- NOTE | 2016-06-11 15:13 | CP.PCM.CON ---
History of Present Illness - History of Present Illness History of Present Illness: 61 year old male with PMH of chronic CHF with LVEF 21%, COPD, Renal cell cancer S/P nephrectomy, Atrial fibrillation, history of transient ischemic attack, S/P tonsillectomy, S/P hiatal hernia repair, history of depression, history of incarcerated large bowel hernia S/P repair was admitted to [facility] because of worsening shortness of breath. He had been just discharged from this hospital a day ago and was treated then for CHF exacerbation. He was apparently well for a few hours, then developed dyspnea on exertion and then shortness of breath at rest with dry cough. He has been having the cough for about a week now. The patient is also complainong of intermittent abdominal pain. There is no note of fever, no vomiting, no diarrhea, no hematuria, no convulsions. Full review of systems is unobtainable because the patient is uncooperative. In the ED, he was noted to have leukocytosis and possible right lung base consolidation on CXR. Infectious Diseases consult is requested to further evaluate and manage. Review of Systems - Review of Systems Systems not reviewed;Unavailable: Uncooperative Past Patient History - Infectious Disease Hx of Infectious Diseases: None - Tetanus Immunizations Tetanus Immunization: Unknown - Past Medical History & Family History Past Medical History?: Yes Pertinent Family History: breast cancer - mother; father - heart attack - Past Social History Smoking Status: Heavy Smoker > 10 Cigarettes Daily - CARDIAC Hx Cardiac Disorders: Yes (chest pain, mi) Hx Cardia Arrhythmia: Yes (A-fib) Hx Circulatory Problems: Yes Hx Congestive Heart Failure: Yes Hx Hypertension: Yes Other/Comment: Cardiac arrest, ischemic cardioimyopathy - PULMONARY Hx Respiratory Disorders: Yes Hx Chronic Obstructive Pulmonary Disease (COPD): Yes Hx Pneumonia: Yes - NEUROLOGICAL Hx Neurological Disorder: Yes Hx Transient Ischemic Attacks (TIA): Yes - HEENT Hx HEENT Problems: No - RENAL Hx Chronic Kidney Disease: No - ENDOCRINE/METABOLIC Hx Endocrine Disorders: No - HEMATOLOGICAL/ONCOLOGICAL Hx Blood Disorders: Yes Hx Anemia: Yes Hx Cancer: (denies) Hx Chemotherapy: (denies) Hx Hepatitis C: Yes - INTEGUMENTARY Hx Dermatological Problems: Yes Other/Comment: multiple scabs to ble "from boots rubbing against my skin" pt stated, skin discolorations to b/l knees, pt denies bruising, multiple scars to arms and neck from cutting at age 15 - MUSCULOSKELETAL/RHEUMATOLOGICAL Hx Falls: No - GASTROINTESTINAL Hx Gastrointestinal Disorders: Yes (cirrhosis, ascites) Hx Ulcer: Yes (bleeding u lcer) Other/Comment: GI bleed, short bowel syndrome, 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 - GENITOURINARY/GYNECOLOGICAL Hx Genitourinary Disorders: No Hx Prostate Problems: (pt denies) - PSYCHIATRIC Hx Substance Use: No - SURGICAL HISTORY Other/Comment: Hernia repair, fistula colon resection, tonsillectomy, colostomy with reversal, right kidney removed, - ANESTHESIA Hx Anesthesia: Yes Hx Anesthesia Reactions: No Hx Malignant Hyperthermia: No Meds Allergies/Adverse Reactions: Allergies Allergy/AdvReac Type Severity Reaction Status Date / Time fluphenazine enanthate Allergy RASH Verified 06/07/16 12:54 [From Prolixin] fluphenazine HCl Allergy RASH Verified 06/07/16 12:54 [From Prolixin] morphine Allergy RASH Verified 06/07/16 12:54 Penicillins Allergy RASH Verified 06/07/16 12:54 venom-honey bee Allergy ANAPHYLAXIS Verified 06/07/16 12:54 [bee venom (honey bee)] - Medications Medications: Current Medications Amiodarone HCl (Cordarone) 200 mg PO BID [facility] Last Admin: 06/10/16 11:15 Dose: Not Given Atorvastatin Calcium (Lipitor) 40 mg PO DAILY [facility] Metronidazole (Flagyl) 100 mls @ 100 mls/hr IVPB Q8H [facility] PRN Reason: Protocol Last Admin: 06/10/16 13:19 Dose: 100 mls/hr Aztreonam 500 mg/ Sodium (Chloride) 100 mls @ 100 mls/hr IVPB Q8 [facility] PRN Reason: Protocol Stop: 06/10/16 14:59 Last Admin: 06/10/16 10:08 Dose: 100 mls/hr Levofloxacin/Dextrose (Levaquin 250mg) 50 mls @ 100 mls/hr IVPB Q48H [facility] Last Admin: 06/10/16 09:04 Dose: 100 mls/hr Sodium Chloride (Sodium Chloride 0.9%) 1,000 mls @ 999 mls/hr IV .Q1H1M STA Stop: 06/10/16 14:41 Last Admin: 06/10/16 13:49 Dose: 999 mls/hr Pantoprazole Sodium (Protonix Inj) 40 mg IVP Q12 [facility] Last Admin: 06/10/16 10:09 Dose: 40 mg Physical Exam - Constitutional Appears: Non-toxic, No Acute Distress - Head Exam Head Exam: NORMAL INSPECTION - ENT Exam ENT Exam: Mucous Membranes Moist - Neck Exam Neck exam: Negative for: Lymphadenopathy, Meningismus - Respiratory Exam Respiratory Exam: Decreased Breath Sounds - Cardiovascular Exam Cardiovascular Exam: +S1, +S2 - GI/Abdominal Exam GI & Abdominal Exam: Soft, Tenderness (mild tenderness over the right upper quadrant area) Results - Vital Signs Recent Vital Signs: Last Vital Signs Temp 97.6 F 06/10/16 13:14 Pulse 63 06/10/16 13:14 Resp 18 06/10/16 13:14 BP 116/45 L 06/10/16 13:14 Pulse Ox 96 06/10/16 10:20 - Labs Result Diagrams: 06/10/16 20:46 06/10/16 20:46 Labs: Laboratory Results - last 24 hr 06/10/16 06/10/16 06/10/16 07:00 07:45 09:00 WBC 13.5 H D RBC 5.00 Hgb 13.8 L Hct 43.8 MCV 87.6 MCH 27.6 MCHC 31.5 RDW 18.8 H Plt Count 200 MPV 10.9 Gran % 83.0 H Lymph % (Auto) 8.4 L [place] % (Auto) 8.4 H Eos % (Auto) 0.1 L Baso % (Auto) 0.1 Gran # 11.23 H Lymph # 1.1 L [place] # 1.1 H Eos # 0.0 Baso # 0.01 pO2 49 VBG pH 7.22 L VBG pCO2 52.0 VBG HCO3 21.3 VBG Total CO2 22.9 VBG O2 Sat (Calc) 81.5 H VBG Base Excess -6.8 L VBG Potassium 4.8 Glucose 60 L Lactate 2.5 H FiO2 21.0 Sodium 140 135.0 137 Potassium 5.1 H 5.1 H Chloride 104 106.0 102 Carbon Dioxide 20 L 23 Anion Gap 21 H 17 BUN 50 H 55 H Creatinine 3.2 H 3.3 H Est GFR ( Amer) 24 23 Est GFR (Non-Af Amer) 20 19 Random Glucose 66 L 82 Calcium 8.9 8.7 Phosphorus 5.7 H Magnesium 2.1 Total Bilirubin 1.4 H 1.2 AST 525 H 654 H ALT 362 H 468 H Alkaline Phosphatase 105 102 Troponin I 0.05 D Total Protein 6.1 5.8 Albumin 3.3 3.1 Globulin 2.8 2.7 Albumin/Globulin Ratio 1.2 1.1 Venous Blood Potassium 4.8 Urine Color Urine Appearance Urine pH Ur Specific Edwards Urine Protein Urine Glucose (UA) Urine Ketones Urine Blood Urine Nitrate Urine Bilirubin Urine Urobilinogen Ur Leukocyte Esterase Urine RBC Urine WBC Ur Epithelial Cells Amorphous Sediment Urine Bacteria Hyaline Casts Fine Granular Casts Coarse Granular Casts Urine Other Ur Random Creatinine Ur Random Sodium Ur Random Urea Nitrogn 06/10/16 12:00 WBC RBC Hgb Hct MCV MCH MCHC RDW Plt Count MPV Gran % Lymph % (Auto) [place] % (Auto) Eos % (Auto) Baso % (Auto) Gran # Lymph # [place] # Eos # Baso # pO2 VBG pH VBG pCO2 VBG HCO3 VBG Total CO2 VBG O2 Sat (Calc) VBG Base Excess VBG Potassium Glucose Lactate FiO2 Sodium Potassium Chloride Carbon Dioxide Anion Gap BUN Creatinine Est GFR ( Amer) Est GFR (Non-Af Amer) Random Glucose Calcium Phosphorus Magnesium Total Bilirubin AST ALT Alkaline Phosphatase Troponin I Total Protein Albumin Globulin Albumin/Globulin Ratio Venous Blood Potassium Urine Color Yellow Urine Appearance Sl cloudy Urine pH 5.5 Ur Specific Edwards >= 1.030 Urine Protein 100 H Urine Glucose (UA) Negative Urine Ketones Negative Urine Blood Trace-intact H Urine Nitrate Negative Urine Bilirubin Negative Urine Urobilinogen 0.2 Ur Leukocyte Esterase Negative Urine RBC 2 - 5 Urine WBC 1 - 3 Ur Epithelial Cells 0 - 2 Amorphous Sediment Moderate Urine Bacteria Many Hyaline Casts 1-4 Fine Granular Casts 0 - 2 Coarse Granular Casts Trace H Urine Other Uyeast Ur Random Creatinine 146 Ur Random Sodium 19 Ur Random Urea Nitrogn 368 Assessment & Plan - Assessment and Plan (Free Text) Plan: Assessment Systemic Inflammatory response Syndrome, consider sepsis secondary to right lower lobe healthcare-associated pneumonia with possible gram positive cocci and /or gram negative bacilli, R/O acute cholecystitis chronic CHF with LVEF 21% COPD Renal cell cancer S/P nephrectomy with chronic renal failure Atrial fibrillation history of transient ischemic attack S/P tonsillectomy S/P hiatal hernia repair history of depression history of incarcerated large bowel hernia S/P repair Plan started patient on Zyvox, Levaquin, Azactam and Flagyl pending blood cx, urine cx, urine Legionella Ag, PCT; reviewed CXR, CT A/P and abdominal ultrasound; follow up GI plans Will follow clinically
--- NOTE | 2016-06-11 16:45 | CARD ---
APPROVED REPORT EKG Measurement Heart [id number] <Conclusion> Atrial flutter with variable AV block Possible Inferior infarct, age undetermined Abnormal ECG
[2016-06-11] MEDS: Morphine 2 mg/ml ISec IVP PRN ×2 (16:53→21:03)
[2016-06-11] MEDS: Albumin Human 25% (25 gm/100 ml) IV SCH (19:53)
--- NOTE | 2016-06-11 19:59 | PN ---
DATE: 06/11/2016 REASON FOR CONSULTATION AND FOLLOWUP: Atrial fibrillation, flutter, chronic; coronary artery disease , cardiomyopathy, cardiac evaluation, respiratory distress on noninvasive ventilator, DNR/DNI. BRIEF CLINICAL HISTORY: This is a 61-year-old male admitted multiple times with multiple different m edical record, nonischemic cardiomyopathy, chronic atrial fibrillation, noncompliance with the medica tion, status post cardiac catheterization, nonobstructive coronary artery disease, decreased LV funct ion, ejection fraction 35%. Admitted yesterday with abdominal pain, chest pain, back pain, sepsis, r espiratory distress. Moved to ICU. Very weak, lethargic. Since the patient is code DNR/DNI, made h imself, so on noninvasive ventilator and very weak and lethargic. PHYSICAL EXAMINATION: As follows: VITAL SIGNS: Temperature afebrile, heart rate 70, blood pressure 105/62. HEENT: PERRLA, intact. NECK: Supple. No carotid bruits. No thyromegaly. CHEST: Clear to auscultation. HEART: S1, S2 regular. ABDOMEN: Soft. EXTREMITIES: Clubbing and cyanosis negative. BLOOD WORKUP: As follows: WBC 17.4, hemoglobin 13.4, hematocrit 41.8, platelet count 199. Chemistr y shows sodium 130, potassium 6.5, chloride 103, carbon dioxide 16, anion gap of 24, BUN 60, creatini ne 4.4. IMPRESSION: Acute kidney injury on chronic renal insufficiency, hyperkalemia, lethargic, sepsis, bruce vated liver enzymes, AST ____, ALT 2400, acute kidney injury, acute liver injury, troponin remains ne gative, lethargic, sepsis, cardiomyopathy, status post cardiac catheterization, nonobstructive huang ry artery disease. Cardiac catheterization on 08/17/2015 essentially shows normal coronaries, decreas ed left ventricular function, ejection fraction of 35%. Last echo 05/26/2014 and then repeat echo on 12/06/2015 shows ejection fraction 25% to 30%, [id number] mitral regurgitation, severe tricusp id regurgitation, pulmonary hypertension, chronic atrial fibrillation. Was on Pradaxa but held becau se of elevated INR. RECOMMENDATION: Continue to hold Pradaxa anticoagulation. The patient is ____ anticoagulant because of acute liver failure. Continue broad spectrum antibiotic. We will hold amiodarone as well becaus e of severe hepatic injury. Avoid nephrotoxic medication. Continue supportive care. Overall, patie nt's condition critical. Correction prognosis guarded. Continue IV fluid and if needs to increase krista sma oncotic pressure, we will give p.r.n. albumin. We will follow with you. Thank you, Dr. Kent, for providing us the opportunity in taking care of the patient. Jody Blevins MD cc: [id number] TT: 06/11/2016 19:59:08 Confirmation # [id number] Dictation # [id number]
[2016-06-12] MEDS: Morphine 2 mg/ml ISec IVP PRN ×5 (01:25→18:59)
[2016-06-12] MEDS: metroNIDAZOLE IV 500 mg/100 ml 100 ML IVPB SCH ×3 (02:30→17:59)
[2016-06-12] MEDS: Albumin Human 25% (25 gm/100 ml) IV SCH ×6 (03:33→22:18)
[2016-06-12] MEDS: Sodium Bicarbonate 8.4% 150 MEQ in Dextrose 5% In Water 1,000 ML IV SCH (08:15)
[2016-06-12 08:25] LABS: CREATININE, RANDOM URINE 135 mg/dL (20-370)
[2016-06-12 08:53] LABS: CHLORIDE URINE 26 mmol/L (32-290)
[2016-06-12] MEDS: Linezolid 600 mg in D5W 300 ml 300 ML IVPB SCH ×2 (09:10→21:08)
--- NOTE | 2016-06-12 09:52 | PN ---
DATE: 06/12/2016 The patient has no complaints of any chest pain or shortness of breath. He says he feels well. He was able to sleep last night. T-98.6 P- 68 RR-12 BP-138/78 GENERAL: The patient comfortable, in no acute distress. HEENT: Anicteric sclerae. Moist mucosa. NECK: No JVD or adenopathy. CARDIAC: S1/S2. No murmurs. No rubs. Regular. RESPIRATORY: Clear to auscultation bilaterally. No wheezes, rales, or rhonchi. Good air entry. ABDOMEN: Bowel sounds are positive, soft, nontender, and nondistended. EXTREMITIES: No edema. Has 1+ pulses. Last creatinine is 4.4, last potassium 6.5. ASSESSMENT: 1. Hyperkalemia. 2. Acute kidney injury. 3. Bilateral pleural effusion. 4. Sepsis. 5. Ascites. 6. Coagulopathy. 7. Nonischemic cardiomyopathy with an ejection fraction of 20%. 8. Atrial fibrillation. Anticoagulation on hold secondary to coagulopathy. 9. Dyslipidemia. 10. Pulmonary hypertension. 11. Tricuspid regurgitation. 12. Mitral regurgitation. 13. Do not resuscitate/do not intubate. PLAN: The patient has not been able to get blood work, so it is difficult to decide on the patient's IV fluids. The patient has been on a bicarb drip because the patient's last bicarb was 16, and the patient also would benefit from the fluids due to the hyperkalemia. I will decrease the patient's fluids to 50 an hour. He does have advanced heart failure, and so will try to limit his IV fluids. I will decrease to 50 an hour and give 1 more liter . He is not allowing for blood work to be done, so I am not sure if I need to continue or give any further medications. The patient is on linezolid, he is receiving morphine for pain. He is on Levaquin. The patient is also on aztreonam. Overall prognosis is guarded. He is DNR. He did have elevated LFTs. I am not sure if this has improved. His amiodarone remains on hold. I would repeat CBC and CMP and see if he will allow us to do this tomorrow. Abbe Robertson MD cc: [id number] TT: 06/12/2016 09:51:34 Confirmation # [id number] Dictation # [id number] MTDD
--- NOTE | 2016-06-12 10:59 | CP.PCM.PN ---
<Mark Ramirez - Last Filed: 06/13/16 00:43> Subjective - Date & Time of Evaluation Date of Evaluation: 06/12/16 Time of Evaluation: 07:20 - Subjective Subjective: Patient seen and examined bedside. No acute events overnight. Patient still complains of abdomen pain which is controlled well with pain medication. Patient refused blood work this morning because its causing him discomfort. Denies fever, chills, chest pain, nausea, vomiting, headache, dizziness. Objective - Vital Signs/Intake and Output Vital Signs (last 24 hours): Temp Pulse Resp BP Pulse Ox 98.2 F 78 14 108/53 L 94 L 06/12/16 04:00 06/12/16 06:00 06/12/16 06:00 06/12/16 06:00 06/12/16 06:00 Intake and Output: 06/12/16 06/12/16 06:59 18:59 Intake Total 2300 Output Total 500 Balance 1800 - Medications Medications: Current Medications Albumin Human (Albumin Human 25% (25 Gm/100 Ml)) 25 gm IV Q4 [facility] Last Admin: 06/12/16 08:38 Dose: 25 gm Amiodarone HCl (Cordarone) 200 mg PO BID [facility] Last Admin: 06/10/16 11:15 Dose: Not Given Atorvastatin Calcium (Lipitor) 40 mg PO DAILY [facility] Metronidazole (Flagyl) 100 mls @ 100 mls/hr IVPB Q8H [facility] PRN Reason: Protocol Last Admin: 06/12/16 02:30 Dose: 100 mls/hr Levofloxacin/Dextrose (Levaquin 250mg) 50 mls @ 100 mls/hr IVPB Q48H [facility] Last Admin: 06/12/16 08:15 Dose: 100 mls/hr Aztreonam 500 mg/ Sodium (Chloride) 100 mls @ 100 mls/hr IVPB Q8 [facility] PRN Reason: Protocol Stop: 06/17/16 08:31 Last Admin: 06/12/16 05:08 Dose: 100 mls/hr Linezolid (Zyvox 600mg/300ml D5w) 300 mls @ 200 mls/hr IVPB Q12 [facility] PRN Reason: Protocol Stop: 06/18/16 10:01 Last Admin: 06/12/16 09:10 Dose: 200 mls/hr Morphine Sulfate (Morphine) 2 mg IVP Q4H [facility] PRN Reason: Pain, moderate (4-7) Last Admin: 06/12/16 08:37 Dose: 2 mg - Labs Labs: 06/10/16 20:46 06/10/16 20:46 PT 23.7 Seconds (9.9-11.8) H 06/10/16 02:15 INR 2.19 (0.93-1.08) H 06/10/16 02:15 APTT 45.0 Seconds (23.7-30.8) H 06/10/16 02:15 - Constitutional Appears: Non-toxic, No Acute Distress, Chronically Ill - Head Exam Head Exam: ATRAUMATIC, NORMOCEPHALIC - Eye Exam Eye Exam: Normal appearance, PERRL - ENT Exam ENT Exam: Mucous Membranes Moist - Neck Exam Neck Exam: Normal Inspection - Respiratory Exam Respiratory Exam: Decreased Breath Sounds, NORMAL BREATHING PATTERN. absent: Respiratory Distress - Cardiovascular Exam Cardiovascular Exam: REGULAR RHYTHM, RRR, +S1, +S2. absent: Murmur - GI/Abdominal Exam GI & Abdominal Exam: Distended, Tenderness, Normal Bowel Sounds - Extremities Exam Extremities Exam: Normal Capillary Refill, Normal Inspection, Tenderness - Back Exam Back Exam: NORMAL INSPECTION - Neurological Exam Neurological Exam: Alert, Awake, Oriented x3 - Psychiatric Exam Psychiatric exam: Normal Affect, Normal Mood - Skin Skin Exam: Dry, Intact, Warm Assessment and Plan - Assessment and Plan (Free Text) Assessment: 61 yo male with past medical hx of HTN, dilated cardiomyopathy, a fib, depression, TIA presenting with sob and chest pain, found to be hypotensive on medical floor, refractory hypotension after fluids, transferred to ICU for further care. Patient is DNR, DNI, and noncompliant to treatments Sepsis -Downgrade to remote [facility] -Likely secondary to HCAP pneumonia, colitis -Leukocytosis improving -Hypotension improved -CXR show right basilar infiltrate -Repeat CXR showed no pneumothorax, right base consolidation. Right inferolateral pleural parenchymal fusion (see full report) -improving elevated LFT, creatinine -Blood and urine cultures showed no growth -Follow ID, nephro, GI recommendations -Continue aztreonam, flagyl, and linezolid -Patient has lactic acidosis, possible hepatorenal failure -Patient refused central line replacement -Refused blood work due to pain and discomfort -Urine L. Pneumonia negative -Palliative care consulted Chest pain/sob -rule out ACS -CXR shows B/L pleural effusions and cardiomegaly -EKG shows a fib -cardiology consult. Dr. Taylor. recs appreciated -Troponin 0.04, 0.05 indeterminate -liquid diet -ct abdomen shows some ascites along with focal colitis Acute kidney injury -Hold Amiodarone and lipitor -nephrology consult. recs appreciated -avoid overhydration, previous ef 20-25 percent Colitis -IV flagyl 500 q 8 -blood/urine culture no growth -Follow GI recommendations -Hepatitis B Ag negative -MRCP negative for choledocolisthiasis -Hepatitis panel negative Hx of CHF -strict I/O -daily weight -hold home lasix hx of A fib -hold home pradaxa -hold amiodarone hx of htn -hold home htn meds for now GI/DVT ppx -protonix discontinued due to risk of kidney injury <Amaury MIRANDA,[facility] - Last Filed: 06/13/16 15:31> Objective - Vital Signs/Intake and Output Vital Signs (last 24 hours): Temp Pulse Resp BP Pulse Ox 98.6 F 83 20 100/74 94 L 06/13/16 00:00 06/13/16 04:30 06/13/16 00:00 06/13/16 00:00 06/13/16 00:00 Intake and Output: 06/13/16 06/13/16 06:59 18:59 Intake Total 540 900 Output Total 400 Balance 140 900 - Medications Medications: Current Medications Albumin Human (Albumin Human 25% (25 Gm/100 Ml)) 25 gm IV Q4 [facility] Last Admin: 06/13/16 11:59 Dose: 25 gm Amiodarone HCl (Cordarone) 200 mg PO BID [facility] Last Admin: 06/10/16 11:15 Dose: Not Given Atorvastatin Calcium (Lipitor) 40 mg PO DAILY [facility] Last Admin: 06/13/16 09:57 Dose: 40 mg Metronidazole (Flagyl) 100 mls @ 100 mls/hr IVPB Q8H [facility] PRN Reason: Protocol Last Admin: 06/13/16 12:00 Dose: 100 mls/hr Aztreonam 500 mg/ Sodium (Chloride) 100 mls @ 100 mls/hr IVPB Q8 [facility] PRN Reason: Protocol Stop: 06/17/16 08:31 Last Admin: 06/13/16 13:50 Dose: 100 mls/hr Linezolid (Zyvox 600mg/300ml D5w) 300 mls @ 200 mls/hr IVPB Q12 [facility] PRN Reason: Protocol Stop: 06/18/16 10:01 Last Admin: 06/13/16 09:56 Dose: 200 mls/hr Morphine Sulfate (Morphine) 2 mg IVP Q4H PRN PRN Reason: Pain, moderate (4-7) Last Admin: 06/13/16 14:50 Dose: 2 mg Ondansetron HCl (Zofran Inj) 4 mg IVP Q6H PRN PRN Reason: Nausea/Vomiting Oxycodone HCl (Oxycodone Immediate Release Tab) 5 mg PO Q6H PRN PRN Reason: Pain, severe (8-10) - Labs Labs: 06/13/16 08:40 06/13/16 08:40 PT 36.5 Seconds (9.9-11.8) H* 06/13/16 11:25 INR 3.38 (0.93-1.08) H 06/13/16 11:25 APTT 45.0 Seconds (23.7-30.8) H 06/10/16 02:15 Attending/Attestation - Attestation I have personally seen and examined this patient.: Yes I have fully participated in the care of the patient.: Yes I have reviewed all pertinent clinical information, including history, physical exam and plan: Yes Notes (Text): Patient was seen and examined with medical transcription supervisor .Agreed with resident assessment and plan. Patient is more alert today.His blood pressure has improved.His LFT are still very high but coming down, Renal functions are also elevated, patient is not hyperkalemic.Patient is alst thrombocytopenic.Thrombocytopenia is multifactorial due to sepsis/medication and liver failure.There is no evidence of bleeding.We will continue monitoring. Patient is awaiting for his family to come before making decision to go to hospice. He is DNR and DNI. Prognosis is guarded. Management plan was discussed in detail with patient Education was provided.
--- NOTE | 2016-06-12 11:16 | CP.CCUPN ---
<Geri Mullins - Last Filed: 06/12/16 13:45> CCU Subjective - Physician Review Events Since Last Encounter (Free Text): 06/12/16 13:45 Patient seen and examined bedside. No acute events overnight. Patient admits to [facility] pain well controlled with PRN morphine. patient states his SOB is improved as compared to admission. Denies CP, nausea, vomiting, headache, dizziness. Critical Care Time Spent (in minutes): 30 CCU Objective - Vital Signs / Intake & Output Intake and Output (Last 8hrs): Intake & Output 06/11/16 06/12/16 06/12/16 22:59 06:59 14:59 Intake Total 1880 2300 Output Total 50 500 Balance 1830 1800 Intake: IV 900 2100 Right External Jugular 900 2100 Oral 480 200 Albumin 100 Other 400 Output: Urine 50 500 Urethral (Benito) 50 500 Other: Voiding Method Indwelling Catheter # Bowel Movements 1 - Physical Exam Head: Positive for: Atraumatic, Normocephalic Pupils: Positive for: PERRL Extroacular Muscles: Positive for: EOMI Conjunctiva: Positive for: Normal Respiratory/Chest: Positive for: Clear to Auscultation, Good Air Exchange, Decreased Breath Sounds. Negative for: Respiratory Distress, Accessory Muscle Use Cardiovascular: Positive for: Regular Rate and Rhythm, Normal S1, S2. Negative for: Murmurs Abdomen: Positive for: Tenderness (mild RUQ TTP), Distention, Normal Bowel Sounds. Negative for: Peritoneal Signs Upper Extremity: Positive for: Normal Inspection. Negative for: Cyanosis, Edema Lower Extremity: Positive for: Normal Inspection. Negative for: Edema Neurological: Positive for: GCS=15, CN II-XII Intact, Speech Normal Skin: Positive for: Warm, Dry, Normal Color. Negative for: Rashes Psychiatric: Positive for: Alert, Oriented x 3, Normal Insight, Normal Concentration - Medications Active Medications: Active Medications Generic Name Dose Route Start Last Admin Trade Name Freq PRN Reason Stop Dose Admin Albumin Human 25 gm 06/11/16 20:00 06/12/16 08:38 Albumin Human 25% (25 Gm/100 Ml) IV 25 gm Q4 FELECIA Administration Amiodarone HCl 200 mg 06/10/16 10:00 06/10/16 11:15 Cordarone PO Not Given BID [facility] Atorvastatin Calcium 40 mg 06/10/16 10:00 Lipitor PO DAILY FELECIA Metronidazole 100 mls @ 100 mls/hr 06/10/16 11:00 06/12/16 11:02 Flagyl IVPB 100 mls/hr Q8H FELECIA Administration Protocol Levofloxacin/Dextrose 50 mls @ 100 mls/hr 06/10/16 08:30 06/12/16 08:15 Levaquin 250mg IVPB 100 mls/hr Q48H FELECIA Administration Aztreonam 500 mg/ Sodium 100 mls @ 100 mls/hr 06/10/16 14:46 06/12/16 05:08 Chloride IVPB 06/17/16 08:31 100 mls/hr Q8 FELECIA Administration Protocol Linezolid 300 mls @ 200 mls/hr 06/11/16 10:00 06/12/16 09:10 Zyvox 600mg/300ml D5w IVPB 06/18/16 10:01 200 mls/hr Q12 FELECIA Administration Protocol Morphine Sulfate 2 mg 06/11/16 16:24 06/12/16 08:37 Morphine IVP 2 mg Q4H PRN Administration Pain, moderate (4-7) - Patient Studies Lab Studies: Microbiology Studies 06/10/16 10:01 Urine Culture - Final Urine No Growth (<1,000 CFU/ML) Lab Studies 06/11/16 06/11/16 06/11/16 Range/Units 17:15 16:23 15:25 Urine Osmolality 341 (50-645) mosm/kg Ur Random Creatinine 122 mg/dL U Random Total Protein 3035 H Cancelled (22-128) mg/g creat Ur Random Sodium 24 meq/L Urine Chloride 26 L (32-290) mmol/L Hepatitis A IgM Ab (NEGATIVE) Hep Bs Antigen (NEGATIVE) Hep B Core IgM Ab (NEGATIVE) Hepatitis C Antibody (NEGATIVE) Ur L.pneumophila Ag Negative (NEGATIVE) 06/10/16 Range/Units 20:46 Urine Osmolality (50-645) mosm/kg Ur Random Creatinine mg/dL U Random Total Protein (22-128) mg/g creat Ur Random Sodium meq/L Urine Chloride (32-290) mmol/L Hepatitis A IgM Ab Negative (NEGATIVE) Hep Bs Antigen Negative (NEGATIVE) Hep B Core IgM Ab Negative (NEGATIVE) Hepatitis C Antibody Negative (NEGATIVE) Ur L.pneumophila Ag (NEGATIVE) Laboratory Results - last 24 hr 06/10/16 06/11/16 06/11/16 20:46 15:25 16:23 Urine Osmolality 341 Ur Random Creatinine U Random Total Protein Cancelled Ur Random Sodium 24 Urine Chloride Hepatitis A IgM Ab Negative Hep Bs Antigen Negative Hep B Core IgM Ab Negative Hepatitis C Antibody Negative Ur L.pneumophila Ag Negative 06/11/16 17:15 Urine Osmolality Ur Random Creatinine 122 U Random Total Protein 3035 H Ur Random Sodium Urine Chloride 26 L Hepatitis A IgM Ab Hep Bs Antigen Hep B Core IgM Ab Hepatitis C Antibody Ur L.pneumophila Ag EKG/Cardiology Studies: Cardiology / EKG Studies 06/11/16 10:19 EKG [ELECTROCARDIOGRAM] Stat Comment: Reason For Exam: hyperkalemia Review of Systems - Constitutional Constitutional: absent: Fever, Chills - EENT Eyes: absent: Blurred Vision Ears: absent: Dizziness - Cardiovascular Cardiovascular: absent: Chest Pain, Diaphoresis, Dyspnea - Respiratory Respiratory: absent: Cough, Dyspnea, Pain on Inspiration - Gastrointestinal Gastrointestinal: absent: Abdominal Pain, Nausea, Vomiting Critical Care Progress Note - Nutrition Nutrition: Nutrition Category Date Time Status Liquid Diet [DIET] Diets 06/10/16 Lunch Ordered Assessment/Plan - Assessment and Plan (Free Text) Assessment: 61 yo M w h/o dilated CM, CAF on Pradaxa, HTN, EtOH abuse, chronic liver disease , [place], RCC s/p chemotherapy admitted to ICU with hypotension resolved s/p 5L NS, course complicated by acute liver failure and real failure. Plan: Neuro: AAOx3, NAD. Monitor for signs of septic/hepatic encephalopathy Maintain normothermia Pulm: Comfortable on NC Maintain spo2>90, pao2>60 CV: Albumin Q4hr for intravascular volume maintenance Conservative fluid management Maintain MAP >65 Renal: Acute renal failure - 2/2 transient hypotension +/- cardiorenal syndrome +/- hepatorenal syndrome Hyperkalemia resolved today. GI: Acute liver failure with coagulopathy, probable cirrhosis, hepatorenal syndrome. MELD score 29 today MRCP pending read Abd US showed ascites, BL pleural effusions. No evidence of intra or extrahepatic biliary dilation. Cholelithiasis with thickened, edematous GB wall. Negative sonographic Mac's sign. Lobulation of hepatic contour without the fine nodular pattern typical of hepatic cirrhosis CT A/P shows BL pleural effusions R>L. RLL atelectasis vs PNA. Cirrhosis. Moderate ascites. Cholelithiasis. Colitis. Endo: Maintain euglycemia 140-180 ID: Sepsis 2/2 PNA vs possible SBP vs acute cholecystitis Leukocytosis resolved on today's labs. Afebrile. Linezolid, Levaquin, Flagyl, Aztreonam as per ID Blood cultures negative at 24 hours Heme: Coagulopathy, Thrombocytopenia 2/2 acute liver failure - holding Pradaxa Dispo: Transfer to remote telemetry, DNR/DNI, palliative care - Date & Time Date: 06/12/16 Time: 11:15 <Kendrick Rubalcava - Last Filed: 06/12/16 16:53> CCU Objective - Vital Signs / Intake & Output Vital Signs (Last 4 hours): Vital Signs Temp Pulse Resp BP Pulse Ox 06/12/16 16:00 97.9 F 55 L 19 103/78 95 Intake and Output (Last 8hrs): Intake & Output 06/12/16 06/12/16 06/12/16 06:59 14:59 22:59 Intake Total 2300 360 Output Total 500 725 Balance 1800 -365 Intake: IV 2100 Right External Jugular 2100 Oral 200 360 Output: Urine 500 725 Urethral (Benito) 500 725 Other: Voiding Method Indwelling Catheter # Bowel Movements 0 - Medications Active Medications: Active Medications Generic Name Dose Route Start Last Admin Trade Name Freq PRN Reason Stop Dose Admin Albumin Human 25 gm 06/11/16 20:00 06/12/16 16:00 Albumin Human 25% (25 Gm/100 Ml) IV 25 gm Q4 FELECIA Administration Amiodarone HCl 200 mg 06/10/16 10:00 06/10/16 11:15 Cordarone PO Not Given BID [facility] Atorvastatin Calcium 40 mg 06/10/16 10:00 Lipitor PO DAILY FELECIA Metronidazole 100 mls @ 100 mls/hr 06/10/16 11:00 06/12/16 11:02 Flagyl IVPB 100 mls/hr Q8H FELECIA Administration Protocol Levofloxacin/Dextrose 50 mls @ 100 mls/hr 06/10/16 08:30 06/12/16 08:15 Levaquin 250mg IVPB 100 mls/hr Q48H FELECIA Administration Aztreonam 500 mg/ Sodium 100 mls @ 100 mls/hr 06/10/16 14:46 06/12/16 14:48 Chloride IVPB 06/17/16 08:31 100 mls/hr Q8 FELECIA Administration Protocol Linezolid 300 mls @ 200 mls/hr 06/11/16 10:00 06/12/16 09:10 Zyvox 600mg/300ml D5w IVPB 06/18/16 10:01 200 mls/hr Q12 FELECIA Administration Protocol Morphine Sulfate 2 mg 06/11/16 16:24 06/12/16 14:21 Morphine IVP 2 mg Q4H PRN Administration Pain, moderate (4-7) Ondansetron HCl 4 mg 06/12/16 16:08 Zofran Inj IVP Q6H PRN Nausea/Vomiting - Patient Studies Lab Studies: Microbiology Studies 06/10/16 22:45 MRSA Culture (Admit) - Preliminary Nose MRSA NOT DETECTED Lab Studies 06/12/16 06/11/16 06/11/16 Range/Units 11:56 17:15 16:23 WBC 9.3 D (4.5-11.0) 10^3/ul RBC 4.33 (3.5-6.1) 10^6/uL Hgb 12.1 L (14.0-18.0) gm/dL Hct 36.6 L (42.0-52.0) % MCV 84.5 (80.0-105.0) fL MCH 27.9 (25.0-35.0) pg MCHC 33.1 (31.0-37.0) g/dl RDW 18.7 H (11.5-14.5) % Plt Count 80 L (120.0-450.0) 10^3/uL MPV 11.0 (7.0-11.0) fl Gran % 88.4 H (50.0-68.0) % Lymph % (Auto) 6.1 L (22.0-35.0) % [place] % (Auto) 5.2 (1.0-6.0) % Eos % (Auto) 0.2 L (1.5-5.0) % Baso % (Auto) 0.1 (0.0-3.0) % Gran # 8.20 H (1.4-6.5) Lymph # 0.6 L (1.2-3.4) [place] # 0.5 (0.1-0.6) Eos # 0.0 (0.0-0.7) Baso # 0.01 (0.0-2.0) K/mm3 Sodium 137 (132-148) mmol/L Potassium 4.8 (3.6-5.0) mmol/L Chloride 96 L (98-107) mmol/L Carbon Dioxide 26 (21-33) mmol/L Anion Gap 20 (10-20) BUN 87 H (7-21) mg/dL Creatinine 5.7 H (0.5-1.4) mg/dL Est GFR ( Amer) 12 Est GFR (Non-Af Amer) 10 Random Glucose 94 (70-110) mg/dL Calcium 8.0 L (8.4-10.5) mg/dL Total Bilirubin 1.1 (0.2-1.3) mg/dL AST 3271 H (15-59) U/L ALT 3118 H (7-56) U/L Alkaline Phosphatase 118 (38-133) U/L Total Protein 6.1 (5.8-8.3) g/dL Albumin 3.7 (3.0-4.8) g/dL Globulin 2.4 gm/dL Albumin/Globulin Ratio 1.5 (1.1-1.8) Ur Random Creatinine 122 mg/dL U Random Total Protein 3035 H (22-128) mg/g creat Urine Chloride 26 L (32-290) mmol/L Ur L.pneumophila Ag Negative (NEGATIVE) Laboratory Results - last 24 hr 06/11/16 06/11/16 06/12/16 16:23 17:15 11:56 WBC 9.3 D RBC 4.33 Hgb 12.1 L Hct 36.6 L MCV 84.5 MCH 27.9 MCHC 33.1 RDW 18.7 H Plt Count 80 L MPV 11.0 Gran % 88.4 H Lymph % (Auto) 6.1 L [place] % (Auto) 5.2 Eos % (Auto) 0.2 L Baso % (Auto) 0.1 Gran # 8.20 H Lymph # 0.6 L [place] # 0.5 Eos # 0.0 Baso # 0.01 Sodium 137 Potassium 4.8 Chloride 96 L Carbon Dioxide 26 Anion Gap 20 BUN 87 H Creatinine 5.7 H Est GFR ( Amer) 12 Est GFR (Non-Af Amer) 10 Random Glucose 94 Calcium 8.0 L Total Bilirubin 1.1 AST 3271 H ALT 3118 H Alkaline Phosphatase 118 Total Protein 6.1 Albumin 3.7 Globulin 2.4 Albumin/Globulin Ratio 1.5 Ur Random Creatinine 122 U Random Total Protein 3035 H Urine Chloride 26 L Ur L.pneumophila Ag Negative EKG/Cardiology Studies: Cardiology / EKG Studies 06/12/16 EKG [ELECTROCARDIOGRAM] Urgent Comment: Reason For Exam: hyperkalemia Critical Care Progress Note - Nutrition Nutrition: Nutrition Category Date Time Status Liquid Diet [DIET] Diets 06/10/16 Lunch Ordered Addendum Addendum: 06/12/16 16:49 patient was seen, examined and discussed shoulder to shoulder with Dr. Mullins at bedside. Her note reflects my exam, assessment and plan except as below. Meds /Labs/ONE reviewed 61 yo male admitted to icu with distributive shock due to liver insuffucuency. was fluid and albumin resuscitated. Hemodynamically stable. DNR/DNI. deshawn silvestre to [facility] time 40 min
[2016-06-12] MEDS ORDERED: Sod Polystyrene Sulf 15 gm/60 ml Oral Susp PO ONE (11:26)
[2016-06-12] MEDS ORDERED: Albuterol 0.042% Inhal Sol (1.25 mg/3 mL) UD IH STA (11:27)
[2016-06-12 11:57] LABS: ADD MANUAL DIFF? NO
[2016-06-12 12:00] LABS: BASO # 0.01 K/mm3 (0.0-2.0); BASO % 0.1 % (0.0-3.0); EOS % 0.2 % (1.5-5.0); GRAN % 88.4 % (50.0-68.0); HEMATOCRIT 36.6 % (42.0-52.0); LYMPH # 0.6 (1.2-3.4); LYMPH % 6.1 % (22.0-35.0); MEAN CELL VOLUME 84.5 fL (80.0-105.0); MEAN CORPUSCULAR HEMOGLOBIN 27.9 pg (25.0-35.0); MEAN CORPUSCULAR HGB CONC 33.1 g/dl (31.0-37.0); MONO # 0.5 (0.1-0.6); MONO % 5.2 % (1.0-6.0); PLATELET COUNT 80 10^3/uL (120.0-450.0); RED CELL DISTRIBUTION WIDTH 18.7 % (11.5-14.5); WHITE BLOOD COUNT 9.3 10^3/ul (4.5-11.0)
[2016-06-12 12:10] LABS: ALB/GLOB RATIO 1.5 (1.1-1.8); BILIRUBIN,TOTAL 1.1 mg/dL (0.2-1.3); POTASSIUM 4.8 mmol/L (3.6-5.0); TOTAL PROTEIN 6.1 g/dL (5.8-8.3)
--- NOTE | 2016-06-12 12:29 | CP.PCM.PN ---
Subjective - Date & Time of Evaluation Date of Evaluation: 06/12/16 Time of Evaluation: 11:25 - Subjective Subjective: General Surgery Progress Note for Dr. Adams This 61M was seen and examined this AM at bedside. Reports that he is feeling better denies abdominal pain. Reports that he reused MRCP yesterday however he is agreeable today. Denies fevers, chills, nausea, vomiting, diarrhea. Objective - Vital Signs/Intake and Output Vital Signs (last 24 hours): Temp Pulse Resp BP Pulse Ox 98.2 F 78 14 108/53 L 94 L 06/12/16 04:00 06/12/16 06:00 06/12/16 06:00 06/12/16 06:00 06/12/16 06:00 Intake and Output: 06/12/16 06/12/16 06:59 18:59 Intake Total 2300 Output Total 500 Balance 1800 - Medications Medications: Current Medications Albumin Human (Albumin Human 25% (25 Gm/100 Ml)) 25 gm IV Q4 [facility] Last Admin: 06/12/16 08:38 Dose: 25 gm Amiodarone HCl (Cordarone) 200 mg PO BID [facility] Last Admin: 06/10/16 11:15 Dose: Not Given Atorvastatin Calcium (Lipitor) 40 mg PO DAILY [facility] Metronidazole (Flagyl) 100 mls @ 100 mls/hr IVPB Q8H [facility]LECIA PRN Reason: Protocol Last Admin: 06/12/16 11:02 Dose: 100 mls/hr Levofloxacin/Dextrose (Levaquin 250mg) 50 mls @ 100 mls/hr IVPB Q48H [facility] Last Admin: 06/12/16 08:15 Dose: 100 mls/hr Aztreonam 500 mg/ Sodium (Chloride) 100 mls @ 100 mls/hr IVPB Q8 [facility]LECIA PRN Reason: Protocol Stop: 06/17/16 08:31 Last Admin: 06/12/16 05:08 Dose: 100 mls/hr Linezolid (Zyvox 600mg/300ml D5w) 300 mls @ 200 mls/hr IVPB Q12 FELECIA PRN Reason: Protocol Stop: 06/18/16 10:01 Last Admin: 06/12/16 09:10 Dose: 200 mls/hr Morphine Sulfate (Morphine) 2 mg IVP Q4H PRN PRN Reason: Pain, moderate (4-7) Last Admin: 06/12/16 08:37 Dose: 2 mg - Labs Labs: 06/12/16 11:56 06/10/16 20:46 PT 23.7 Seconds (9.9-11.8) H 06/10/16 02:15 INR 2.19 (0.93-1.08) H 06/10/16 02:15 APTT 45.0 Seconds (23.7-30.8) H 06/10/16 02:15 - Constitutional Appears: Non-toxic, No Acute Distress - Head Exam Head Exam: ATRAUMATIC, NORMOCEPHALIC - Eye Exam Eye Exam: EOMI, Normal appearance - ENT Exam ENT Exam: Mucous Membranes Moist - Respiratory Exam Respiratory Exam: NORMAL BREATHING PATTERN - Cardiovascular Exam Cardiovascular Exam: +S1, +S2 - GI/Abdominal Exam GI & Abdominal Exam: Distended, Soft. absent: Rigid, Tenderness - Neurological Exam Neurological Exam: Alert, Awake - Psychiatric Exam Psychiatric exam: Normal Affect, Normal Mood - Skin Skin Exam: Dry, Intact Assessment and Plan - Assessment and Plan (Free Text) Assessment: This is a 61 yo M with PMHx of HTN, CT, dilated cardiomyopathy, AFib, TIA, renal ca, incarcerated abd hernia, colectomy with U/S positive for pleural effusion, ascites, 5 mm gall bladder wall thickening, and gallstones. Plan: - VS stable. - WBC WNL today - MRCP negative for choledocolisthiasis - No surgical intervention at this time. Thank you for the consult. Please contact us if you feel the patient requires re-evaluation. - Discussed case with Dr. Adams. Kirk Cortez PGY-1
--- NOTE | 2016-06-12 14:49 | MRI ---
PROCEDURE: Magnetic Resonance Cholangiopancreatography HISTORY: COMPARISON: None available. TECHNIQUE: Multiplanar, multisequence MR images of the abdomen were obtained, including heavily T2 weighted MRCP images of the biliary system. Rotating maximum intensity projection images of the biliary system were generated. FINDINGS: MRCP: The examination is technically limited. There is respiratory motion artifact. There is magnetic susceptibility artifact arising from an unknown source at approximately the left hepatic lobe. Common bile duct measures approximately 9 mm in diameter. No evidence of choledocholithiasis. The common bile duct can be visualized to the level of the junction with the pancreatic duct. LIVER: Nodular contour suggestive of hepatic cirrhosis. No mass. No intrahepatic biliary ductal dilatation seen. GALLBLADDER: Gallbladder identified. Small dependent calculus identified on series 4, image 10 and 11. No gross mural thickening. SPLEEN: Unremarkable. PANCREAS: No pancreatic mass. No pancreatic ductal dilatation. ADRENALS: Unremarkable appearance. KIDNEYS: Status post right nephrectomy. Two small cysts in left kidney, mid and lower pole. AORTA: No aneurysm. ASCITES: Generalized ascites noted. OTHER FINDINGS: Bilateral pleural effusion and lower lobe compressive atelectasis, right greater than left. Cardiomegaly. IMPRESSION: Grossly limited examination. No evidence of choledocholithiasis. Mild dilatation of the extrahepatic common bile duct to a 9 mm diameter. Cholelithiasis. Extensive ascites. Bilateral pleural effusion. Probable hepatic cirrhosis.
--- NOTE | 2016-06-12 16:38 | PN ---
DATE: 06/12/2016 REASON FOR CONSULTATION AND FOLLOWUP: Atrial fibrillation, flutter, chronic coronary artery disease, cardiomyopathy, cardiac evaluation and respiratory distress on noninvasive ventilator, DNR/DNI. BRIEF CLINICAL HISTORY: This is a 61-year-old male admitted multiple times with multiple different m edical records, nonischemic cardiomyopathy, chronic atrial fibrillation, noncompliance with the medic ation, status post cardiac catheterization, nonobstructive coronary artery disease, decreased left ve ntricular function, ejection fraction 35% dated 08/17/2015, admitted with sepsis, moved to ICU, now p fredrick is in the process of being ____ to the floor. PHYSICAL EXAMINATION: VITAL SIGNS: Temperature afebrile, heart rate 78, blood pressure 108/53. HEENT: PERRLA. Extraocular muscles intact. NECK: Supple. No carotid bruits. No thyromegaly. CHEST: Clear to auscultation. HEART: S1, S2 regular. ABDOMEN: Soft. EXTREMITIES: Clubbing and cyanosis negative. BLOOD WORKUP: WBC 9.3, hemoglobin 12.____, hematocrit 36.6, platelet count 80. Chemistry shows sodi um 130, potassium 4.8, chloride 96, carbon dioxide 26, anion gap of 20, BUN 87, creatinine 5.7. IMPRESSION: Acute kidney injury, hypertension, hyperlipidemia, acute liver failure, cardiomyopathy, coagulopathy. Last INR was 2 yesterday. Ordered; it is not done. The patient was on Pradaxa for at rial fibrillation, but because the INR is elevated, it was held. RECOMMENDATIONS: Continue to hold Pradaxa until the INR is below 1.5; and since the liver function i s very abnormal, will continue to hold Pradaxa. Avoid nephrotoxic medication. Avoid liver toxic med ication. Continue supportive care. The patient is on IV fluids. Will follow with you. Continue an tibiotic. Needs to be adjustment of any medications because of the liver and renal failure. Amiodar one as well is on hold because of abnormal LFTs. Also hold atorvastatin. Also the antibiotic dose n eeds to be adjusted. Will follow closely. Overall, the patient's condition is critical. Snf p rognosis is extremely poor. Will follow with you. Jody Blevins MD cc: [id number] TT: 06/12/2016 16:37:54 Confirmation # [id number] Dictation # [id number]
--- NOTE | 2016-06-12 17:45 | CARD ---
APPROVED REPORT EKG Measurement Heart [id number] <Conclusion> Atrial fibrillation Low voltage QRS T wave abnormality, consider lateral ischemia or digitalis effect Abnormal ECG
--- NOTE | 2016-06-12 19:53 | CP.PCM.PN ---
Subjective - Date & Time of Evaluation Date of Evaluation: 06/12/16 Time of Evaluation: 08:40 - Subjective Subjective: Comfortable in bed, not in distress, no fevers overnight, less abdominal pain, breathing better, more awake and alert today. Objective - Vital Signs/Intake and Output Vital Signs (last 24 hours): Temp Pulse Resp BP Pulse Ox 97.9 F 93 H 19 103/78 95 06/12/16 16:00 06/12/16 19:21 06/12/16 16:00 06/12/16 16:00 06/12/16 16:00 Intake and Output: 06/12/16 06/13/16 18:59 06:59 Intake Total 360 Output Total 725 Balance -365 - Medications Medications: Current Medications Albumin Human (Albumin Human 25% (25 Gm/100 Ml)) 25 gm IV Q4 [facility] Last Admin: 06/12/16 16:00 Dose: 25 gm Amiodarone HCl (Cordarone) 200 mg PO BID [facility] Last Admin: 06/10/16 11:15 Dose: Not Given Atorvastatin Calcium (Lipitor) 40 mg PO DAILY [facility] Metronidazole (Flagyl) 100 mls @ 100 mls/hr IVPB Q8H [facility]LECIA PRN Reason: Protocol Last Admin: 06/12/16 17:59 Dose: 100 mls/hr Levofloxacin/Dextrose (Levaquin 250mg) 50 mls @ 100 mls/hr IVPB Q48H [facility] Last Admin: 06/12/16 08:15 Dose: 100 mls/hr Aztreonam 500 mg/ Sodium (Chloride) 100 mls @ 100 mls/hr IVPB Q8 [facility] PRN Reason: Protocol Stop: 06/17/16 08:31 Last Admin: 06/12/16 14:48 Dose: 100 mls/hr Linezolid (Zyvox 600mg/300ml D5w) 300 mls @ 200 mls/hr IVPB Q12 [facility]LE[facility]IA PRN Reason: Protocol Stop: 06/18/16 10:01 Last Admin: 06/12/16 09:10 Dose: 200 mls/hr Morphine Sulfate (Morphine) 2 mg IVP Q4H PRN PRN Reason: Pain, moderate (4-7) Last Admin: 06/12/16 18:59 Dose: 2 mg Ondansetron HCl (Zofran Inj) 4 mg IVP Q6H PRN PRN Reason: Nausea/Vomiting - Labs Labs: 06/12/16 11:56 06/12/16 11:56 PT 23.7 Seconds (9.9-11.8) H 06/10/16 02:15 INR 2.19 (0.93-1.08) H 06/10/16 02:15 APTT 45.0 Seconds (23.7-30.8) H 06/10/16 02:15 - Constitutional Appears: Non-toxic, No Acute Distress - Head Exam Head Exam: NORMAL INSPECTION - ENT Exam ENT Exam: Mucous Membranes Moist - Neck Exam Neck Exam: absent: Lymphadenopathy, Meningismus - Respiratory Exam Respiratory Exam: Decreased Breath Sounds - Cardiovascular Exam Cardiovascular Exam: +S1, +S2 - GI/Abdominal Exam GI & Abdominal Exam: Soft. absent: Tenderness Assessment and Plan - Assessment and Plan (Free Text) Plan: Systemic Inflammatory response Syndrome, consider sepsis secondary to right lower lobe healthcare-associated pneumonia with possible gram positive cocci and /or gram negative bacilli, R/O acute cholecystitis chronic CHF with LVEF 21% COPD Renal cell cancer S/P nephrectomy with chronic renal failure Atrial fibrillation history of transient ischemic attack S/P tonsillectomy S/P hiatal hernia repair history of depression history of incarcerated large bowel hernia S/P repair Plan continue Zyvox, Levaquin, Azactam and Flagyl day 2; blood cx, urine cx, urine Legionella Ag are negative; follow up PCT; reviewed CXR, CT A/P and abdominal ultrasound; follow up GI plans Overall prognosis is poor Will continue to follow clinically
[2016-06-12] MEDS ORDERED: Morphine 2 mg/ml ISec IVP STA (21:25)
[2016-06-13] MEDS: Albumin Human 25% (25 gm/100 ml) IV SCH ×4 (01:58→11:59)
[2016-06-13] MEDS: metroNIDAZOLE IV 500 mg/100 ml 100 ML IVPB SCH ×2 (01:59→12:00)
[2016-06-13] MEDS: Morphine 2 mg/ml ISec IVP PRN ×4 (03:39→14:50)
[2016-06-13 04:30] VITALS: PULSE 83
[2016-06-13 04:32] VITALS: BP 100/74; RESP 20; TEMP 98.6; O2SAT 94
[2016-06-13 08:54] LABS: HEMATOCRIT 35.7 % (42.0-52.0); MEAN CELL VOLUME 83.6 fL (80.0-105.0); MEAN CORPUSCULAR HEMOGLOBIN 27.4 pg (25.0-35.0); MEAN CORPUSCULAR HGB CONC 32.8 g/dl (31.0-37.0); RED CELL DISTRIBUTION WIDTH 18.6 % (11.5-14.5)
[2016-06-13 09:01] LABS: ALB/GLOB RATIO 1.8 (1.1-1.8); BILIRUBIN,TOTAL 1.3 mg/dL (0.2-1.3); CALCIUM 9.3 mg/dL (8.4-10.5); MAGNESIUM 1.8 mg/dL (1.7-2.2); PHOSPHOROUS 5.2 mg/dL (2.5-4.5); POTASSIUM 4.2 mmol/L (3.6-5.0); TOTAL PROTEIN 6.6 g/dL (5.8-8.3)
--- NOTE | 2016-06-13 09:40 | PN ---
DATE: 06/13/2016 The patient has no complaints of any chest pain, no shortness of breath, no headaches. VITAL SIGNS: Temperature is 98, pulse is 83, blood pressure is 100/74, respirations 20. PHYSICAL EXAMINATION: GENERAL: The patient comfortable, in no acute distress. HEENT: Anicteric sclerae. Moist mucosa. NECK: No JVD or adenopathy. CARDIAC: S1/S2. No murmurs. No rubs. Regular. RESPIRATORY: Clear to auscultation bilaterally. No wheezes, rales, or rhonchi. Good air entry. ABDOMEN: Bowel sounds are positive, soft, nontender, and nondistended. EXTREMITIES: No edema. Has 1+ pulses. LABS: Creatinine is 5.7, the platelet count is 80, white count of 9.3, hemoglobin 12.1. The patient 's potassium is 4.8. An MRCP done shows no evidence of choledocolithiasis. There is mild dilation of the extrahepatic com mon bile duct to 9 mm. There is ascites and some bilateral pleural effusion, probable hepatic sclero sis. ASSESSMENT: 1. Hyperkalemia, improved. 2. Acute kidney injury. 3. Bilateral pleural effusion. 4. Sepsis. 5. Ascites. 6. Thrombocytopenia. 7. Coagulopathy. 8. Non-ischemic cardiomyopathy with ejection fraction 20%. 9. Atrial fibrillation. Anticoagulation on hold. 10. Dyslipidemia. 11. Pulmonary hypertension. 12. Tricuspid regurgitation. 13. Mitral regurgitation. 14. Noncompliance/nonadherence. 15. Do not resuscitate/do not intubate. 16. Solitary kidney. 17. Status post nephrectomy. PLAN: The patient's potassium has improved significantly. The patient had been on a bicarb drip. T he patient's platelets have acutely decreased. This may be related to DIC. I am also concerned abou t microangiopathic hemolytic anemia. The patient does have an elevated LDH on admission, has anemia, thrombocytopenia. I would suggest that the patient get a hematology evaluation. The patient albumin. Also concerning is the fact that he may be going into hepatorenal failure. His creatinine continues to climb. He is a poor dialysis candidate because of compliance issues. His blood culture s and urine cultures have been negative. Will recheck the patient's INR. His total bili has improve d. The patient is also on linezolid. He is receiving morphine for pain. The hepatitis B and C have bee n negative. Overall poor prognosis. Abbe Robertson MD cc: [id number] TT: 06/13/2016 09:39:44 Confirmation # [id number] Dictation # [id number]
[2016-06-13] MEDS: Linezolid 600 mg in D5W 300 ml 300 ML IVPB SCH (09:56)
--- NOTE | 2016-06-13 10:38 | CP.PCM.PN ---
Subjective - Date & Time of Evaluation Date of Evaluation: 06/13/16 Time of Evaluation: 10:00 - Subjective Subjective: Alert, offers no complaints. Objective - Vital Signs/Intake and Output Vital Signs (last 24 hours): Temp Pulse Resp BP Pulse Ox 98.6 F 83 20 100/74 94 L 06/13/16 00:00 06/13/16 04:30 06/13/16 00:00 06/13/16 00:00 06/13/16 00:00 Intake and Output: 06/13/16 06/13/16 06:59 18:59 Intake Total 540 900 Output Total 400 Balance 140 900 - Medications Medications: Current Medications Albumin Human (Albumin Human 25% (25 Gm/100 Ml)) 25 gm IV Q4 [facility] Last Admin: 06/13/16 08:23 Dose: Not Given Amiodarone HCl (Cordarone) 200 mg PO BID [facility] Last Admin: 06/10/16 11:15 Dose: Not Given Atorvastatin Calcium (Lipitor) 40 mg PO DAILY [facility] Last Admin: 06/13/16 09:57 Dose: 40 mg Metronidazole (Flagyl) 100 mls @ 100 mls/hr IVPB Q8H [facility] PRN Reason: Protocol Last Admin: 06/13/16 01:59 Dose: 100 mls/hr Aztreonam 500 mg/ Sodium (Chloride) 100 mls @ 100 mls/hr IVPB Q8 [facility] PRN Reason: Protocol Stop: 06/17/16 08:31 Last Admin: 06/13/16 05:29 Dose: 100 mls/hr Linezolid (Zyvox 600mg/300ml D5w) 300 mls @ 200 mls/hr IVPB Q12 [facility] PRN Reason: Protocol Stop: 06/18/16 10:01 Last Admin: 06/13/16 09:56 Dose: 200 mls/hr Morphine Sulfate (Morphine) 2 mg IVP Q4H PRN PRN Reason: Pain, moderate (4-7) Last Admin: 06/13/16 07:50 Dose: 2 mg Ondansetron HCl (Zofran Inj) 4 mg IVP Q6H PRN PRN Reason: Nausea/Vomiting - Labs Labs: 06/13/16 08:40 06/13/16 08:40 PT 23.7 Seconds (9.9-11.8) H 06/10/16 02:15 INR 2.19 (0.93-1.08) H 06/10/16 02:15 APTT 45.0 Seconds (23.7-30.8) H 06/10/16 02:15 - Constitutional Appears: No Acute Distress, Chronically Ill - Head Exam Head Exam: NORMAL INSPECTION - Eye Exam Eye Exam: Normal appearance, PERRL - ENT Exam ENT Exam: Mucous Membranes Moist - Respiratory Exam Respiratory Exam: Decreased Breath Sounds, NORMAL BREATHING PATTERN - Cardiovascular Exam Cardiovascular Exam: REGULAR RHYTHM, +S1, +S2 - GI/Abdominal Exam GI & Abdominal Exam: Distended, Soft, Normal Bowel Sounds - Extremities Exam Extremities Exam: Full ROM, Normal Capillary Refill - Neurological Exam Neurological Exam: Alert, Oriented x3 - Skin Skin Exam: Dry, Warm Assessment and Plan - Assessment and Plan (Free Text) Assessment: 61 year old male admitted with shortness of breath, PAN, cirrhosis,end stage cardiomyopathy. Patient's family at beside, including Piedad MAJOR. Lengthy discussion about patients goals of care. Patient does not want to be hospitalized in the future, requesting comfort measures only. Family is supportive and in agreement with his decisions. Hospice services explained in detail. Questions answered. Family wishes to continue services with [facility] hospice component. Patient would like to go home to day. Psychosocial support given. Time spent with patient and family in goals of care/hospice discussion, 30 minutes Plan: Dr. Delroy Rebolledo notified, Discharge home with hospice services. Thank you for allowing me to participate in this patients care
--- NOTE | 2016-06-13 10:40 | PN ---
DATE: 06/13/2016 SUBJECTIVE: The patient is lying in bed, comfortable. He denies any shortness of breath or abdomina l pain. PHYSICAL EXAMINATION: VITAL SIGNS: Reveal temperature of 98.6, blood pressure of 100/74, heart rate of 94. ABDOMEN: Soft, nontender. LABORATORY DATA: Reveal white blood cell count of 6, hemoglobin 11.7. Chemistries reveal BUN 79, cr eatinine 5.2, [id number], ALT 1882, alkaline phosphatase of 115. IMPRESSION: A 61-year-old male with end-stage ischemic cardiomyopathy, acute on chronic renal failur e with a marked rise in his AST, ALT consistent with shock liver. The patient has multiple comorbidi ties. There is not much that can be offered for this patient in terms of reversing his poor heart fu nction. The patient is considering hospice care. His hepatitis serology is negative. RECOMMENDATIONS: Continue supportive care with comfort measures. Devon Barbour MD cc: [id number] TT: 06/13/2016 10:39:31 Confirmation # [id number] Dictation # [id number] tn
[2016-06-13] MEDS ORDERED: oxyCODONE 5 mg Immediate Release Tab PO PRN (11:02)
[2016-06-13 11:44] LABS: INR 3.38 (0.93-1.08)
--- NOTE | 2016-06-13 14:23 | CON ---
DATE: 06/13/2016 REASON FOR CONSULTATION: History of renal cell carcinoma, currently with multiple medical problems. The patient is a 61-year-old male with past medical history significant for multiple medical problems including atrial fibrillation, cardiomyopathy, hypertension, depression, TIA, coronary artery diseas e, who is admitted once again with decompensated congestive heart failure, has had multiple admission s over the last few months for the above and is currently deemed as end-stage and being evaluated by hospice as we speak. He has no evidence of recurrent cancer at this point. His renal cancer was sev eral years ago and he had a nephrectomy at that point. Has not required any further treatment for th e above as well. PAST MEDICAL HISTORY: As above. Known history of cardiomyopathy, atrial fibrillation, hypertension, depression, TIA, coronary artery disease. PAST SURGICAL HISTORY: Notable for hiatal hernia repair, tonsillectomy as well as nephrectomy. ALLERGIES: No known drug allergies. CURRENT MEDICATIONS: His MAR is reviewed. FAMILY HISTORY: Noncontributory. SOCIAL HISTORY: Positive for smoking, currently still smokes half a pack of cigarettes per day. Den ies any alcohol abuse. REVIEW OF SYSTEMS: As per the HPI. PHYSICAL EXAMINATION: VITAL SIGNS: Reveal a temperature of 98.6, pulse of 83, respiratory rate of 20, and a blood pressure 100/74. GENERAL: The patient is an elderly, pleasant male, sitting up in bed, in mild respiratory distress. HEAD AND NECK: Normocephalic, atraumatic. EYES: Pupils equal, round, reactive to light and accommodation. Extraocular muscles are intact. Th ere is no pallor, no icterus is noted. NECK: Supple with no adenopathy, no JVD, no thyromegaly. LUNGS: Decreased breath sounds bilaterally at the bases with audible rales. CARDIOVASCULAR: S1, S2 is heard. ABDOMEN: Positive bowel sounds, distended abdomen, nontender, no organomegaly is palpated. EXTREMITIES: There is bilateral lower extremity edema. LABORATORIES: Reveal a white count of 6.0, hemoglobin of 11.7, hematocrit of 35.7, MCV of 83.6 and a platelet count of 63,000. His platelet count on admission was 240,000, which is now declined signif icantly. His electrolytes are within normal limits, except for an elevated BUN and creatinine of 79 and 5.2. AST, ALT are markedly elevated as well, as is his phosphorus level. ASSESSMENT AND PLAN: Elderly male with multiple medical problems including known hepatorenal syndrom e secondary to congestive heart failure and cardiomyopathy, known hepatocellular disease, currently w ith drop in platelet count from 240,000 to 63,000. No active bleeding is noted. Would hold off on a ny platelet transfusion. Agree with hospice evaluation on this patient with end-stage hepatorenal di sease. Thank you for the consult. We will hold off on any intervention at this point. Alvaro Donaldson MD cc: [id number] TT: 06/13/2016 14:22:55 Confirmation # [id number] Dictation # [id number]
--- NOTE | 2016-06-13 16:07 | PN ---
DATE: 06/13/2016 The patient is in room 365, bed #2. REASON FOR CONSULTATION AND FOLLOWUP: Atrial fibrillation, flutter, chronic coronary artery disease, cardiomyopathy, respiratory distress. HISTORY OF PRESENT ILLNESS: The patient is a 61-year-old male admitted multiple times with multiple different medical problems, has nonischemic cardiomyopathy, chronic atrial fibrillation, noncompliant with medication, status post cardiac catheterization, nonobstructive coronary artery disease and dec reased LV ejection fraction 35% on 08/17/2015. The patient was admitted with sepsis, was in ICU. Now patient is on the floor. The patient improving with therapy. The patient denies any chest pain, sh ortness of breath, palpitation. PHYSICAL EXAMINATION: VITAL SIGNS: Blood pressure 100/74, respirations 20, pulse 74, temperature 98.6. HEAD: Normocephalic. EYES: Pupils normal. Conjunctivae are normal. NECK: JVP low. Carotids equal. THORAX: AP diameter normal. LUNGS: Clear. CARDIOVASCULAR: S1, S2. No rub. ABDOMEN: Soft, nontender, no organomegaly. Bowel sounds normal. EXTREMITIES: No clubbing, no cyanosis. LABORATORY DATA: WBC 6.0, hemoglobin 11.7, hematocrit 35.7, platelet 63, sodium 138, potassium 4.2, BUN 79, creatinine 5.2. AST 1435, ALT 1882. Total protein 6.6, albumin 4.2, glucose 93. DIAGNOSES AND PLAN: Acute kidney injury, hypertension, hyperlipidemia, acute liver failure, cardiomy opathy, coagulopathy. Increased . Today's INR is 3.38. The patient was on Pradaxa for atrial fibrillation, but elevated INR, so it was held. Plan is to continue to hold Pradaxa until INR is bel ow 1.55. The patient on hand nebulizer therapy. The patient on Azactam 500 mg IV q. 8 hours, Cordar one 200 mg b.i.d., metronidazole 500 mg IV q. 8 hours, Lipitor 40 p.o. daily, Zyvox 600 mg IV q. 12 h ours. We will continue to follow with you. Jody Taylor MD cc: [phone] TT: 06/13/2016 16:07:13 Confirmation # [id number] Dictation # [id number] rn
--- NOTE | 2016-06-13 20:47 | CP.PCM.PN ---
Subjective - Date & Time of Evaluation Date of Evaluation: 06/13/16 Time of Evaluation: 09:15 - Subjective Subjective: Comfortable in bed, not in distress, no fevers overnight, improved abdominal pain, no diarrhea. Objective - Vital Signs/Intake and Output Vital Signs (last 24 hours): Temp Pulse Resp BP Pulse Ox 98.6 F 83 20 100/74 94 L 06/13/16 00:00 06/13/16 04:30 06/13/16 00:00 06/13/16 00:00 06/13/16 00:00 Intake and Output: 06/13/16 06/14/16 18:59 06:59 Intake Total 900 Balance 900 - Labs Labs: 06/13/16 08:40 06/13/16 08:40 PT 36.5 Seconds (9.9-11.8) H* 06/13/16 11:25 INR 3.38 (0.93-1.08) H 06/13/16 11:25 APTT 45.0 Seconds (23.7-30.8) H 06/10/16 02:15 - Constitutional Appears: Non-toxic, No Acute Distress - Head Exam Head Exam: NORMAL INSPECTION - Neck Exam Neck Exam: absent: Lymphadenopathy, Meningismus - Respiratory Exam Respiratory Exam: Decreased Breath Sounds - Cardiovascular Exam Cardiovascular Exam: +S1, +S2 - GI/Abdominal Exam GI & Abdominal Exam: Soft. absent: Tenderness Assessment and Plan - Assessment and Plan (Free Text) Plan: Assessment Systemic Inflammatory response Syndrome, consider sepsis secondary to right lower lobe healthcare-associated pneumonia with possible gram positive cocci and /or gram negative bacilli, clinically improving; no evidence of acute cholecystitis on MRCP chronic CHF with LVEF 21% COPD Renal cell cancer S/P nephrectomy with chronic renal failure Atrial fibrillation history of transient ischemic attack S/P tonsillectomy S/P hiatal hernia repair history of depression history of incarcerated large bowel hernia S/P repair Plan on Zyvox, Levaquin, Azactam and Flagyl day 3; blood cx, urine cx, urine Legionella Ag are negative; reviewed CXR, CT A/P and abdominal ultrasound; follow up GI plans Overall prognosis is poor
--- NOTE | 2016-06-14 10:51 | CP.PCM.DIS ---
<Mark Ramirez - Last Filed: 06/16/16 09:28> Provider - Provider Date of Admission: 06/10/16 04:48 Attending physician: Jody Rebolledo MD Primary care physician: Dr. Centeno Consults: ID: Dr. Mosquera Cardio: Dr. Taylor Nephro: Dr. Robertson GI: Dr. Barbuor Surg: Dr. Adams Heme: Dr. Bhardwaj Palliative: [place] Time Spent in preparation of Discharge (in minutes): 40 Diagnosis - Discharge Diagnosis (1) Chest pain Status: Chronic Priority: Medium (2) Pneumonia Status: Chronic (3) Abdominal pain Status: Resolved (4) Sepsis Status: Resolved (5) CHF (congestive heart failure) Status: Chronic Priority: High (6) Atrial fibrillation Status: Chronic Priority: Medium (7) Hypertension Status: Chronic (8) Colitis Status: Chronic (9) PAN (acute kidney injury) Status: Chronic (10) Hepatorenal failure Status: Chronic (11) Thrombocytopenia Status: Chronic (12) DNR (do not resuscitate) Status: Chronic (13) DNI (do not intubate) Status: Chronic Hospital Course - Lab Results Lab Results: Micro Results 06/10/16 22:45 Nose MRSA Culture (Admit) - Preliminary MRSA NOT DETECTED 06/10/16 10:01 Urine Urine Culture - Final No Growth (<1,000 CFU/ML) Most Recent Lab Values WBC 6.0 10^3/ul (4.5-11.0) D 06/13/16 08:40 RBC 4.27 10^6/uL (3.5-6.1) 06/13/16 08:40 Hgb 11.7 gm/dL (14.0-18.0) L 06/13/16 08:40 Hct 35.7 % (42.0-52.0) L 06/13/16 08:40 MCV 83.6 fL (80.0-105.0) 06/13/16 08:40 MCH 27.4 pg (25.0-35.0) 06/13/16 08:40 MCHC 32.8 g/dl (31.0-37.0) 06/13/16 08:40 RDW 18.6 % (11.5-14.5) H 06/13/16 08:40 Plt Count 63 10^3/uL (120.0-450.0) L 06/13/16 08:40 MPV 10.0 fl (7.0-11.0) 06/13/16 08:40 Gran % 88.4 % (50.0-68.0) H 06/12/16 11:56 Lymph % (Auto) 6.1 % (22.0-35.0) L 06/12/16 11:56 Bureau % (Auto) 5.2 % (1.0-6.0) 06/12/16 11:56 Eos % (Auto) 0.2 % (1.5-5.0) L 06/12/16 11:56 Baso % (Auto) 0.1 % (0.0-3.0) 06/12/16 11:56 Gran # 8.20 (1.4-6.5) H 06/12/16 11:56 Lymph # 0.6 (1.2-3.4) L 06/12/16 11:56 Bureau # 0.5 (0.1-0.6) 06/12/16 11:56 Eos # 0.0 (0.0-0.7) 06/12/16 11:56 Baso # 0.01 K/mm3 (0.0-2.0) 06/12/16 11:56 PT 36.5 Seconds (9.9-11.8) H* 06/13/16 11:25 INR 3.38 (0.93-1.08) H 06/13/16 11:25 APTT 45.0 Seconds (23.7-30.8) H 06/10/16 02:15 pO2 49 mm/Hg (30-55) 06/10/16 07:45 VBG pH 7.22 (7.32-7.43) L 06/10/16 07:45 VBG pCO2 52.0 (40-60) 06/10/16 07:45 VBG HCO3 21.3 mmol/l (21-28) 06/10/16 07:45 VBG Total CO2 22.9 mmol.L (22-28) 06/10/16 07:45 VBG O2 Sat (Calc) 81.5 % (40-65) H 06/10/16 07:45 VBG Base Excess -6.8 mmol/L (0.0-2.0) L 06/10/16 07:45 VBG Potassium 4.8 mmol/L (3.6-5.2) 06/10/16 07:45 Sodium 135.0 mmol/L (132-148) 06/10/16 07:45 Chloride 106.0 mmol/L (98-107) 06/10/16 07:45 Glucose 60 mg/dl (75-110) L 06/10/16 07:45 Lactate 2.5 mmol/L (0.7-2.1) H 06/10/16 07:45 FiO2 21.0 % 06/10/16 07:45 Sodium 138 mmol/L (132-148) 06/13/16 08:40 Potassium 4.2 mmol/L (3.6-5.0) 06/13/16 08:40 Chloride 97 mmol/L (98-107) L 06/13/16 08:40 Carbon Dioxide 27 mmol/L (21-33) 06/13/16 08:40 Anion Gap 18 (10-20) 06/13/16 08:40 BUN 79 mg/dL (7-21) H 06/13/16 08:40 Creatinine 5.2 mg/dL (0.5-1.4) H 06/13/16 08:40 Est GFR ( Amer) 14 06/13/16 08:40 Est GFR (Non-Af Amer) 11 06/13/16 08:40 POC Glucose (mg/dL) 110 mg/dL (65-110) 06/10/16 21:32 Random Glucose 93 mg/dL (70-110) 06/13/16 08:40 Lactic Acid 4.9 mmol/L (0.7-2.1) H* 06/10/16 20:46 Calcium 9.3 mg/dL (8.4-10.5) 06/13/16 08:40 Phosphorus 5.2 mg/dL (2.5-4.5) H 06/13/16 08:40 Magnesium 1.8 mg/dL (1.7-2.2) 06/13/16 08:40 Total Bilirubin 1.3 mg/dL (0.2-1.3) 06/13/16 08:40 AST 1435 U/L (15-59) H 06/13/16 08:40 ALT 1882 U/L (7-56) H 06/13/16 08:40 Alkaline Phosphatase 115 U/L (38-133) 06/13/16 08:40 Lactate Dehydrogenase 1438 U/L (333-699) H 06/10/16 02:15 Total Creatine Kinase 397 U/L (35-230) H 06/10/16 02:15 CK-MB (CK-2) 21.0 ng/mL (0.0-3.6) H 06/10/16 02:15 CK-MB (CK-2) % 5.3 % (2.5-3.0) H 06/10/16 02:15 Troponin I 0.08 ng/mL D 06/10/16 20:46 Total Protein 6.6 g/dL (5.8-8.3) 06/13/16 08:40 Albumin 4.2 g/dL (3.0-4.8) 06/13/16 08:40 Globulin 2.3 gm/dL 06/13/16 08:40 Albumin/Globulin Ratio 1.8 (1.1-1.8) 06/13/16 08:40 Amylase 92 U/L (35-125) 06/10/16 02:15 Lipase 91 U/L (23-300) 06/10/16 02:15 Procalcitonin 1.96 NG/ML (0.19-0.49) H 06/12/16 07:00 Venous Blood Potassium 4.8 mmol/L (3.6-5.2) 06/10/16 07:45 Urine Color Yellow (YELLOW) 06/10/16 12:00 Urine Appearance Sl cloudy (CLEAR) 06/10/16 12:00 Urine pH 5.5 (4.7-8.0) 06/10/16 12:00 Ur Specific [place] >= 1.030 (1.005-1.035) 06/10/16 12:00 Urine Protein 100 mg/dL (<30 mg/dL) H 06/10/16 12:00 Urine Glucose (UA) Negative mg/dL (NEGATIVE) 06/10/16 12:00 Urine Ketones Negative mg/dL (NEGATIVE) 06/10/16 12:00 Urine Blood Trace-intact (NEGATIVE) H 06/10/16 12:00 Urine Nitrate Negative (NEGATIVE) 06/10/16 12:00 Urine Bilirubin Negative (NEGATIVE) 06/10/16 12:00 Urine Urobilinogen 0.2 E.U./dL (<1 E.U./dL) 06/10/16 12:00 Ur Leukocyte Esterase Negative Carolyn/uL (NEGATIVE) 06/10/16 12:00 Urine RBC 2 - 5 /hpf (0-2) 06/10/16 12:00 Urine WBC 1 - 3 /hpf (0-6) 06/10/16 12:00 Ur Epithelial Cells 0 - 2 /hpf (0-5) 06/10/16 12:00 Amorphous Sediment Moderate 06/10/16 12:00 Urine Bacteria Many (NEG) 06/10/16 12:00 Hyaline Casts 1-4 /hpf 06/10/16 12:00 Fine Granular Casts 0 - 2 /hpf (0-2) 06/10/16 12:00 Coarse Granular Casts Trace /hpf (0-2) H 06/10/16 12:00 Urine Other Uyeast 06/10/16 12:00 Urine Osmolality 341 mosm/kg (50-645) 06/11/16 15:25 Ur Random Creatinine 122 mg/dL 06/11/16 17:15 U Random Total Protein 3035 mg/g creat (22-128) H 06/11/16 17:15 Ur Random Sodium 24 meq/L 06/11/16 15:25 Ur Random Urea Nitrogn 368 mg/dL 06/10/16 12:00 Urine Chloride 26 mmol/L (32-290) L 06/11/16 17:15 Hepatitis A IgM Ab Negative (NEGATIVE) 06/10/16 20:46 Hep Bs Antigen Negative (NEGATIVE) 06/10/16 20:46 Hep B Core IgM Ab Negative (NEGATIVE) 06/10/16 20:46 Hepatitis C Antibody Negative (NEGATIVE) 06/10/16 20:46 Ur L.pneumophila Ag Negative (NEGATIVE) 06/11/16 16:23 - Hospital Course Hospital Course: 61 year old male with past medical hisotry of [place], HTN, dilated cardiomyopathy, a fib, depression, TIA, kidney CA s/p resection presenting with sob x 1 day. Patient was discharged from hospital yesterday. He was recently admitted for CHF exacerbation and discharged with medications. Patient returned home and was fine for a few hours. Afterwards, he began experiencing sob and chest pain as he walked from living room to bathroom. Chest pain was under left breast, no radiation, never felt this way before. Patient also complained of bilateral lower quadrant abdominal pain. It was 10/10, then at time of evaluation 9/10. Nothing makes it better/worse. Pain is constant. He did not take any medication at home for it. The he called ambulance. Patient denies having fever, chills, headache, nausea, vomiting, diarrhea, constipation or urinary symptoms. In the ED, patient was found with a lactate of 4.2 and potassium of 6.2, kayexalate was given. Patient creatitine was found to be 3.3. EKG showed afib. CT abdomen pelvis showed bilateral pleural effusions. RIGHT lower lobe atelectasis and/or pneumonia. Moderate ascites. Probable gallbladder with hyperdense bile/cholelithiasis. Suggest ultrasound. Mild colitis versus underdistention. Clinical correlation is needed (see full report). CXR showed persistent infiltrate at the right lung base. Patient has a living will that states he is a DNR/DNI; he states he would like us to continue to follow his living will and keep him as a DNR/DNI. Upon admission, infectious disease was consulted for pneumonia and colitis. Cardiology was consulted for chest pain and afib. Nephrology was consulted for worsening kidney functions. GI was consulted for elevated LFT and colitis. Patient was started on IVF NS 150, flagyl IV. Patient's hypertensive medications were held due to hypotension. Later in the afternoon, patient became hypotensive on the floor. Blood pressure was found to be at 57/40 and WBC of 17. Patient was not responding to IVF boluses. ICU evaluation was requested and patient was transferred to ICU at night. Overnight patient refused central line and bloodwork. Abdominal ultrasound was performed and showed ascites, pleural effusion, cholelithiasis with thickened edematous gallbladder wall. Antibiotics were started for patient per ID. Amiodrone, Pradaxa, and lipitor were on hold due to elevated LFT. Protonix was on hold for kidney failure. Patient was found to have hepatorenal symdrome. Surgery was consulted for gall stone, whom recommended MRCP. MRCP showed no evidence of choledocholithiasis. Hepatitis panel was negative. Palliative care was consulted and patient agreed and notified his sister whom will fly in from [place] to arrange further details for home hospice. Patient's BP improved on ICU day 2, refused blood gain and still complains of abdominal pain. Supportive care was continued. Home spice was arranged with among hospice premium service representative and family members. Patient will be discharge home antibiotics and pain medications. - Date & Time of H&P Date of H&P: 06/10/16 Time of H&P: 05:05 Discharge Exam - Head Exam Head Exam: NORMAL INSPECTION - Eye Exam Eye Exam: Normal appearance, PERRL - ENT Exam ENT Exam: Mucous Membranes Moist - Neck Exam Neck exam: Normal Inspection - Respiratory Exam Respiratory Exam: UNREMARKABLE. absent: Respiratory Distress - Cardiovascular Exam Cardiovascular Exam: Irregular Rhythm, +S1, +S2 - GI/Abdominal Exam GI & Abdominal Exam: Soft, Tenderness (Bilateral lower quadrant tenderness). absent: Rigid - Extremities Exam Extremities exam: normal inspection, pedal pulses present - Neurological Exam Neurological exam: Alert, Oriented x3 - Psychiatric Exam Psychiatric exam: Normal Affect, Normal Mood - Skin Skin Exam: Dry, Warm Discharge Plan - Discharge Medications Prescriptions: Metronidazole [Flagyl] 500 mg PO TID #12 tablet Lamotrigine [Lamictal] 100 mg PO DAILY #15 tab Levofloxacin 250 mg PO Q2 #4 tablet Metoprolol Succinate XL [Toprol XL] 12.5 mg PO BID #60 tab oxyCODONE [oxyCODONE Immediate Release Tab] 5 mg PO Q6H PRN #20 tab PRN Reason: Pain, Severe (8-10) - Follow Up Plan Condition: STABLE Disposition: HOSPICE - HOME Instructions: Sepsis (GEN), Acute Abdominal Pain (DC) Additional Instructions: Patient was instructed to follow up with PMD Dr. Centeno after hospital discharge for medication adjustment Patient will take antiobtics as prescribed Patient was educated on blood pressure monitoring and stop metoprolol once blood pressure drops below 100 SBP Patient will start home hospice Go to the nearest emergency room if symptoms return or worsen <Jody Rebolledo MD - Last Filed: 06/23/16 13:55> Provider - Provider Date of Admission: 06/10/16 04:48 Attending physician: Jody Rebolledo MD Hospital Course - Lab Results Lab Results: Micro Results 06/10/16 22:45 Nose MRSA Culture (Admit) - Final MRSA NOT DETECTED 06/10/16 10:01 Urine Urine Culture - Final No Growth (<1,000 CFU/ML) Most Recent Lab Values WBC 6.0 10^3/ul (4.5-11.0) D 06/13/16 08:40 RBC 4.27 10^6/uL (3.5-6.1) 06/13/16 08:40 Hgb 11.7 gm/dL (14.0-18.0) L 06/13/16 08:40 Hct 35.7 % (42.0-52.0) L 06/13/16 08:40 MCV 83.6 fL (80.0-105.0) 06/13/16 08:40 MCH 27.4 pg (25.0-35.0) 06/13/16 08:40 MCHC 32.8 g/dl (31.0-37.0) 06/13/16 08:40 RDW 18.6 % (11.5-14.5) H 06/13/16 08:40 Plt Count 63 10^3/uL (120.0-450.0) L 06/13/16 08:40 MPV 10.0 fl (7.0-11.0) 06/13/16 08:40 Gran % 88.4 % (50.0-68.0) H 06/12/16 11:56 Lymph % (Auto) 6.1 % (22.0-35.0) L 06/12/16 11:56 Bureau % (Auto) 5.2 % (1.0-6.0) 06/12/16 11:56 Eos % (Auto) 0.2 % (1.5-5.0) L 06/12/16 11:56 Baso % (Auto) 0.1 % (0.0-3.0) 06/12/16 11:56 Gran # 8.20 (1.4-6.5) H 06/12/16 11:56 Lymph # 0.6 (1.2-3.4) L 06/12/16 11:56 Bureau # 0.5 (0.1-0.6) 06/12/16 11:56 Eos # 0.0 (0.0-0.7) 06/12/16 11:56 Baso # 0.01 K/mm3 (0.0-2.0) 06/12/16 11:56 PT 36.5 Seconds (9.9-11.8) H* 06/13/16 11:25 INR 3.38 (0.93-1.08) H 06/13/16 11:25 APTT 45.0 Seconds (23.7-30.8) H 06/10/16 02:15 pO2 49 mm/Hg (30-55) 06/10/16 07:45 VBG pH 7.22 (7.32-7.43) L 06/10/16 07:45 VBG pCO2 52.0 (40-60) 06/10/16 07:45 VBG HCO3 21.3 mmol/l (21-28) 06/10/16 07:45 VBG Total CO2 22.9 mmol.L (22-28) 06/10/16 07:45 VBG O2 Sat (Calc) 81.5 % (40-65) H 06/10/16 07:45 VBG Base Excess -6.8 mmol/L (0.0-2.0) L 06/10/16 07:45 VBG Potassium 4.8 mmol/L (3.6-5.2) 06/10/16 07:45 Sodium 135.0 mmol/L (132-148) 06/10/16 07:45 Chloride 106.0 mmol/L (98-107) 06/10/16 07:45 Glucose 60 mg/dl (75-110) L 06/10/16 07:45 Lactate 2.5 mmol/L (0.7-2.1) H 06/10/16 07:45 FiO2 21.0 % 06/10/16 07:45 Sodium 138 mmol/L (132-148) 06/13/16 08:40 Potassium 4.2 mmol/L (3.6-5.0) 06/13/16 08:40 Chloride 97 mmol/L (98-107) L 06/13/16 08:40 Carbon Dioxide 27 mmol/L (21-33) 06/13/16 08:40 Anion Gap 18 (10-20) 06/13/16 08:40 BUN 79 mg/dL (7-21) H 06/13/16 08:40 Creatinine 5.2 mg/dL (0.5-1.4) H 06/13/16 08:40 Est GFR ( Amer) 14 06/13/16 08:40 Est GFR (Non-Af Amer) 11 06/13/16 08:40 POC Glucose (mg/dL) 110 mg/dL (65-110) 06/10/16 21:32 Random Glucose 93 mg/dL (70-110) 06/13/16 08:40 Lactic Acid 4.9 mmol/L (0.7-2.1) H* 06/10/16 20:46 Calcium 9.3 mg/dL (8.4-10.5) 06/13/16 08:40 Phosphorus 5.2 mg/dL (2.5-4.5) H 06/13/16 08:40 Magnesium 1.8 mg/dL (1.7-2.2) 06/13/16 08:40 Total Bilirubin 1.3 mg/dL (0.2-1.3) 06/13/16 08:40 AST 1435 U/L (15-59) H 06/13/16 08:40 ALT 1882 U/L (7-56) H 06/13/16 08:40 Alkaline Phosphatase 115 U/L (38-133) 06/13/16 08:40 Lactate Dehydrogenase 1438 U/L (333-699) H 06/10/16 02:15 Total Creatine Kinase 397 U/L (35-230) H 06/10/16 02:15 CK-MB (CK-2) 21.0 ng/mL (0.0-3.6) H 06/10/16 02:15 CK-MB (CK-2) % 5.3 % (2.5-3.0) H 06/10/16 02:15 Troponin I 0.08 ng/mL D 06/10/16 20:46 Total Protein 6.6 g/dL (5.8-8.3) 06/13/16 08:40 Albumin 4.2 g/dL (3.0-4.8) 06/13/16 08:40 Globulin 2.3 gm/dL 06/13/16 08:40 Albumin/Globulin Ratio 1.8 (1.1-1.8) 06/13/16 08:40 Amylase 92 U/L (35-125) 06/10/16 02:15 Lipase 91 U/L (23-300) 06/10/16 02:15 Procalcitonin 1.96 NG/ML (0.19-0.49) H 06/12/16 07:00 Venous Blood Potassium 4.8 mmol/L (3.6-5.2) 06/10/16 07:45 Urine Color Yellow (YELLOW) 06/10/16 12:00 Urine Appearance Sl cloudy (CLEAR) 06/10/16 12:00 Urine pH 5.5 (4.7-8.0) 06/10/16 12:00 Ur Specific [place] >= 1.030 (1.005-1.035) 06/10/16 12:00 Urine Protein 100 mg/dL (<30 mg/dL) H 06/10/16 12:00 Urine Glucose (UA) Negative mg/dL (NEGATIVE) 06/10/16 12:00 Urine Ketones Negative mg/dL (NEGATIVE) 06/10/16 12:00 Urine Blood Trace-intact (NEGATIVE) H 06/10/16 12:00 Urine Nitrate Negative (NEGATIVE) 06/10/16 12:00 Urine Bilirubin Negative (NEGATIVE) 06/10/16 12:00 Urine Urobilinogen 0.2 E.U./dL (<1 E.U./dL) 06/10/16 12:00 Ur Leukocyte Esterase Negative Carolyn/uL (NEGATIVE) 06/10/16 12:00 Urine RBC 2 - 5 /hpf (0-2) 06/10/16 12:00 Urine WBC 1 - 3 /hpf (0-6) 06/10/16 12:00 Ur Epithelial Cells 0 - 2 /hpf (0-5) 06/10/16 12:00 Amorphous Sediment Moderate 06/10/16 12:00 Urine Bacteria Many (NEG) 06/10/16 12:00 Hyaline Casts 1-4 /hpf 06/10/16 12:00 Fine Granular Casts 0 - 2 /hpf (0-2) 06/10/16 12:00 Coarse Granular Casts Trace /hpf (0-2) H 06/10/16 12:00 Urine Other Uyeast 06/10/16 12:00 Urine Osmolality 341 mosm/kg (50-645) 06/11/16 15:25 Ur Random Creatinine 122 mg/dL 04/05/17 17:15 U Random Total Protein 3035 mg/g creat (22-128) H 06/11/16 17:15 Ur Random Sodium 24 meq/L 06/11/16 15:25 Ur Random Urea Nitrogn 368 mg/dL 06/10/16 12:00 Urine Chloride 26 mmol/L (32-290) L 06/11/16 17:15 Hepatitis A IgM Ab Negative (NEGATIVE) 06/10/16 20:46 Hep Bs Antigen Negative (NEGATIVE) 06/10/16 20:46 Hep B Core IgM Ab Negative (NEGATIVE) 06/10/16 20:46 Hepatitis C Antibody Negative (NEGATIVE) 06/10/16 20:46 Ur L.pneumophila Ag Negative (NEGATIVE) 06/11/16 16:23 Attending/Attestation - Attestation I have personally seen and examined this patient.: Yes I have fully participated in the care of the patient.: Yes I have reviewed all pertinent clinical information, including history, physical exam and plan: Yes Notes (Text): Patient was seen and examined with medical chemist .Agreed with resident assessment and plan. 61 year old male with past medical hisotry of [place], HTN, dilated cardiomyopathy, a fib, depression, TIA, kidney CA s/p resection presenting with worsening dyspnea , was found to have Sepsis/Septic shock dye to HCAP Pneumonia , patient also was found to have elevated LFT and acute renal; failure due to hypotension.Patient was treated with aggressive IV hydration, he refused central line for pressor.Patient blood pressure improved with IV hydration, however his LFT (start coming down ) were strill very high and his renal failure was not improved.The Palliative care consult was obtained.Patient decided to go for Hospice and comfort measures.His family was at bed side.His Amiodrone was discontinued due to Elevated LFT.CARLEEN inhibitor were also discontinued. Management plan was discussed in detail with patient Education was provided.
== END 2016-06-13 16:25 | disposition hospice, home (50) | DRG 584 ==
LOC: ED 00:39 → ERH 04:48 → 2RNO 11:25 → CCU 22:39 → 3RNO 06-12 12:10
PROVIDERS: ADMIT Internal Medicine; ATTEND Internal Medicine
DX: A41.9 Sepsis, unspecified organism (principal); J18.9 Pneumonia, unspecified organism; K76.7 Hepatorenal syndrome; K72.00 Acute and subacute hepatic failure without coma; R65.21 Severe sepsis with septic shock; I13.0 Hypertensive heart and chronic kidney disease with heart failure and stage 1 through stage 4 chronic kidney disease, or unspecified chronic kidney disease; R18.8 Other ascites; J44.0 Chronic obstructive pulmonary disease with (acute) lower respiratory infection; I50.9 Heart failure, unspecified; D68.4 Acquired coagulation factor deficiency; N17.9 Acute kidney failure, unspecified; N18.3 Chronic kidney disease, stage 3 (moderate); E87.2 Acidosis; I42.0 Dilated cardiomyopathy; D69.59 Other secondary thrombocytopenia; I08.1 Rheumatic disorders of both mitral and tricuspid valves; K74.60 Unspecified cirrhosis of liver; E87.5 Hyperkalemia; Z66 Do not resuscitate; K52.9 Noninfective gastroenteritis and colitis, unspecified; I48.2 Chronic atrial fibrillation; F32.9 Major depressive disorder, single episode, unspecified; I27.2 Other secondary pulmonary hypertension; K80.20 Calculus of gallbladder without cholecystitis without obstruction; E78.5 Hyperlipidemia, unspecified; I25.10 Atherosclerotic heart disease of native coronary artery without angina pectoris; F17.210 Nicotine dependence, cigarettes, uncomplicated; Z51.5 Encounter for palliative care; Z85.528 Personal history of other malignant neoplasm of kidney; I25.2 Old myocardial infarction; Z86.73 Personal history of transient ischemic attack (TIA), and cerebral infarction without residual deficits; Z91.14 Patient's other noncompliance with medication regimen; Z88.0 Allergy status to penicillin; Z91.19 Patient's noncompliance with other medical treatment and regimen; Z90.5 Acquired absence of kidney